=== PATIENT | male | born 1950 | race Caucasian/White ===

== ENCOUNTER 2025-07-16 05:05 | Observation (INO) | payer MEDICARE, OTHER, SELFPAY ==
[2025-07-15 19:51] VITALS: BP 122/87
[2025-07-15 20:08] LABS: Hematocrit 52.5 % (39.0-52.0); Hemoglobin 17.8 g/dL (13.0-18.0); Mean Corp Hgb Conc. 33.9 g/dL (33.0-37.0); Mean Corpuscular Volume 90.1 fL (80.0-94.0); Nucleated Red Blood Cells % 0 % (-); Platelet Count 221 10^3/uL (130-400); Red Cell Dist. Width 13.9 % (11.5-14.5)
[2025-07-15 20:20] LABS: ALT (SGPT) 27 U/L (0-50); AST (SGOT) 22 U/L (17-59); Albumin 3.8 g/dl (3.5-5.0); Alkaline Phosphatase 60 U/L (38-126); Blood Urea Nitrogen 49 mg/dl (9-20); Calcium 9.3 mg/dl (8.4-10.2); Carbon Dioxide 26 mmol/L (22-30); Chloride 99 mmol/L (98-107); Glucose 113 mg/dl (70-99); Potassium 4.0 mmol/L (3.5-5.1); Sodium 134 mmol/L (135-145); Total Protein 6.7 g/dl (6.3-8.2); eGFR > 60.00
[2025-07-15 22:06] VITALS: BP 135/94
[2025-07-15 23:00] VITALS: BP 159/99
--- NOTE | 2025-07-15 23:44 | ED.GENMED ---
History of Present Illness
General
Chief Complaint: Weakness
Source: patient
Time Seen by Provider: 07/15/25 23:18
History of Present Illness
History of Present Illness:
74-year-old male presents emergency department with complaints of not feeling well about 3 weeks ago described as hip pain. He saw his doctor, was diagnosed with a bursitis, was prescribed prednisone which helped him and his pain went away. Then,
sometime over the weekend, he lost his appetite associated with nausea and repeated episodes of nonbloody vomiting. He also noted discomfort across his mid to lower abdomen that is been 'on and off', without associated provoking or relieving
factors. He had some vomiting today but then the pain went away. He had a small piece of toast but then lost his appetite again. Patient notes that in the middle the night last night he tried to get out of bed to fill his water bottle and fell.
He denies associated chest pain or dyspnea. He did feel lightheaded and just 'shaky'. He was able to get himself up and back to bed but states that every time he gets up to stand he feels shaky and lightheaded. He denies chest pain, palpitations,
dyspnea, back pain, neck pain, headache, black stool, or bright red blood per rectum, hematemesis, coffee-ground emesis, etc.
Past History
Past History
ED Past Medical History: Asthma, HTN, Hypercholesterolemia and Other (Kidney stones)
ED Past Surgical History: Cholecystectomy and Orthopedic (4 hip replacements, right hand with pins)
Patient has exhibited threatening behavior?: No
PSI?: No
Social History
Tobacco: Former smoker
Alcohol: None
Personal:
Living: with family
Employment: Employed
Family History
Family History: Hypertension
Phy Exam
Physical Exam
Physical Exam:
GENERAL: Alert , in no apparent distress
EYE: pupils equal and reactive
NECK: Supple, no significant adenopathy.
ENT: o/p clr, mm dry
CARDIAC: Regular rate and rhythm .
LUNGS: Clear breath sounds bilaterally, no acute respiratory distress, no wheezes/rales/rhonchi
ABDOMEN: Soft, mild tenderness noted at suspected umbilical hernia which is reducible, no r/g, no cvat
NEUROLOGICAL: Alert and oriented, no focal neuro deficits
SKIN: Warm and dry, skin intact.
MUSCULOSKELETAL: No edema, well perfused.
PSYCH: Normal and appropriate interaction.
Course
Orders/Labs/Results
Orders:
Orders
07/15/25 19:58
Complete Blood Count/With Diff Urgent
Comprehensive Metabolic Panel Urgent
07/15/25 23:40
Cardiac Monitoring- Treatment ONCE
Troponin I Urgent
0.9% Sodium Chloride 1000 ml [Nss] 1,000 ml IV BOLUS
Iohexol [Omnipaque] See Protocol PO NOW STA
Morphine Sulfate 2 mg IV NOW STA
Ondansetron Injectable [Zofran] 4 mg IV NOW STA
07/15/25 23:43
EKG- Treatment ONCE
07/16/25
CT Abd/pel W Iv And Oral Contr Urgent
Reason For Exam: n/v ventral hernia
07/16/25 01:39
Electrocardiogram (*1) Urgent
Reason for Study: Other
Other Reason for Exam: n/v
07/16/25 04:38
Troponin I Urgent
07/16/25 04:48
Admit/Transfer Patient As Directed
Co-Sign Provider:
Level of Care: Observation services
Assign to:: Telemetry
Physician / Group: oHlly
Diagnosis: mycardial injury
Reason for Telemetry: Chest Pain syndromes
Date to Stop Telemetry: 07/18/25
Time to Stop Telemetry: 11:00
PRN Pain Medication Management As Directed
May give lesser potent ordered pain med per pt: Yes
preference::
Protocol:: Medication orders for pain may be administered in a
manner that supports deferring to patient preference
when the pt is:
- Requesting an ordered lesser potent pain medication.
Least to most potent pain medications are defined
as: acetaminophen < NSAID < tramadol < opioids
(morphine, oxycodone, hydromorphone).
- Requesting a lesser dose of the same medication IF
ORDERED.
- Requesting a less intrusive route of administration
if both routes are prescribed by the provider (PO <
IV).
07/16/25 04:50
Code Status As Directed
Resuscitation Status: Full Code
07/16/25 05:41
Acetaminophen [Tylenol] 650 mg PO Q4HPRN PRN
Albuterol [ProAIR HFA INHALER] 2 puff INH R Q4HPRN PRN asthma
Mag Hydrox/Al Hydrox/Simeth [Maalox] 30 ml PO Q4HPRN PRN
Ondansetron Injectable [Zofran] 4 mg IV Q6HPRN PRN
Tramadol HCl [Ultram] 50 mg PO Q6HPRN PRN
07/16/25 05:41
Echo 2D MMode Color/Doppler Routine
Reason for Study: chest pain
CARDIOLOGY CONSULT Routine
Consulting Provider: Nimo Stewart
Was physician already notified: No
Reason for consult: elevated trop to 0.23, no CP, came in for abd discomfort with neg w/u
Consult Notification Routine
Specialty to Notify: Cardiology
Activity As Directed
Activity Level: With Assistance
INT (Intravenous Needle Therapy) As Directed
Comment: maintain peripheral IV access
Intake/ Output As Directed
Frequency: Per unit guidelines
Pneumatic Compression Sleeves As Directed
Type: Knee high
Vital Signs As Directed
Frequency: q4h
Weight As Directed
Frequency: Once
Pulse Ox/spot Check [RESP] Routine
Quantity: 1
Special Instructions: on admission and then every shift if on oxygen
DX Deep Vein Thrombosis Video Routine
07/16/25 Breakfast
Cholesterol Lowering
At Your Request: Full Participation
Cholesterol Lowering: Sodium, 2 Gram
07/16/25 06:23
CRP [C-Reactive Protein] IN AM
Cardiovascular Evaluation IN AM
Complete Blood Count/No Diff IN AM
ESR [Erythrocyte Sed Rate] IN AM
Glycohemoglobin (HgbA1c) IN AM
NT-proBNP IN AM
07/16/25 08:00
Budesonide/Formoterol 160/4.5 [Symbicort 160/4.5 Mcg Inhaler] 2 puff INH R BID
Furosemide [Lasix] 20 mg PO DAILY
Metoprolol Xl [Toprol Xl] 12.5 mg PO DAILY
Pantoprazole [Protonix] 40 mg PO DAILY
Tolterodine Extended Release [Detrol LA] 4 mg PO DAILY
07/16/25 11:00
Troponin I Q6H
Comment: at admit & Q3H for 3 total including ED draws, obtain ECG with each level
07/16/25 17:00
Troponin I Q6H
Comment: at admit & Q3H for 3 total including ED draws, obtain ECG with each level
07/16/25 18:00
Atorvastatin [Lipitor] 20 mg PO QPM
07/16/25 22:00
Tamsulosin [Flomax] 0.8 mg PO HS
07/18/25 11:00
DC Protocol for Telemetry ONCE
Abnormal Lab Results
07/15/25 07/16/25 07/16/25
19:58 00:22 04:38
WBC 11.9 H 10^3/uL
(4.8-10.8)
Hct 52.5 H %
(39.0-52.0)
MPV 10.7 H fL
(7.4-10.4)
Abs Immat Gran (auto) 0.1 H 10^3/uL
(0-0.05)
Absolute Neuts (auto) 9.5 H 10^3/uL
(1.4-6.5)
Absolute Monos (auto) 0.9 H 10^3/uL
(0.1-0.6)
Immature Gran % 0.8 H %
(0-0.5)
Neutrophils % 79.2 H %
(42.2-75.2)
Lymphocytes % 12.0 L %
(20.5-51.1)
Sodium 134 L mmol/L
(135-145)
BUN 49 H mg/dl
(9-20)
Glucose 113 H mg/dl
(70-99)
Total Bilirubin 2.4 H mg/dl
(0.2-1.3)
Troponin I 0.233 H* ng/ml 0.236 H* ng/ml
07/15/25 19:58
07/15/25 19:58
Vital Signs
Initial and Last Documented VS:
Initial Vital Signs
Pulse Resp BP Pulse Ox
98 18 122/87 96
07/15/25 19:51 07/15/25 19:51 07/15/25 19:51 07/15/25 19:51
Last Documented Vital Signs
Pulse Resp BP Pulse Ox
60 15 107/65 96
07/16/25 06:15 07/16/25 06:15 07/16/25 06:00 07/16/25 06:15
*Pulse Oximetry
SaO2: 96
Oxygen Mode of Delivery: Room air
Update Note
Update Note:
Patient presents to the Emergency Department with __abdominal pain nausea vomiting
Number and Complexity of Problems Addressed at the Encounter
� Chronic conditions affecting care:
� Acute Exacerbation and/or Progression of Chronic Illness:
� Differential Diagnosis includes: But not limited to GI bleed, gastroenteritis, incarcerated hernia, appendicitis, diverticulitis, etc. etc. etc.
Amount and/or Complexity of Data to be Reviewed and Analyzed
� I performed an independent evaluation of and my interpretation is:
EKG: Read by me, normal sinus rhythm, PVCs, right bundle branch block, no acute ischemia, unchanged from prior comparison
CT: Patient report no acute intra-abdominal pathology no bowel obstruction or focal inflammation appendix normal no free air or free fluid no hydronephrosis. Nonobstructing right nephrolithiasis. Prior cholecystectomy. Small
fat-containing periumbilical hernia. Reidentified left total hip arthroplasty with a chronic ovoid 6.4 x 5.8 cm soft tissue density in the region of the left obturator risk control analyst, which may represent a seroma or pseudotumor
Xrays:
Laboratory Studies: Slight leukocytosis, prerenal azotemia
Other:
� Review of other/old records reveals: Patient has been admitted in the past and discharge summaries were reviewed regarding kidney stone surgery, new onset dysphagia diagnosed as laryngitis
� Clinical information was obtained by an independent historian:
� Prescriptions/Medications Considered but not given:
� Further testing considered but not performed:
Risk of Complications and/or Morbidity or Mortality of Patient Management
� Social determinants of health affecting care:
� Discussion with other providers (PCP, Hospitalists, Consultants, etc):
� Escalation of care including admission/observation vs risk of discharge considered: Although patient recently on steroids, labs do not suggest adrenal insufficiency as a cause of his symptoms. Prerenal azotemia. Slight
leukocytosis may be consistent with recent steroid use. Consistent with suspected dehydration.
Patient's troponin noted to be elevated. He does not have active chest discomfort, and ECG without acute changes. Elevation may be related to demand ischemia, will repeat ECG to confirm no changes.
343 am pt resting comfortably, has to urinate (tech will assist/accompany him), no abd pain, no cp. Case d/w hospitalst Dr Tolentino for admission. ECG X 2 unremarkable for acute ischemia and no cp or abd pain...will admit for continued hyudration, cards
eval/tele monitoring, etc.
ED Attending Note
-
Portions of this chart may have been created with voice recognition software.� Occasional wrong word or��sound alike� substitutions may have occurred due to the inherent limitations of voice recognition software.
Discharge Plan
Departure
Patient Disposition: Admit
Date of Disposition: 07/16/25
Time of Disposition: 03:45
Admit to: Telemetry
Presentation/result/management discussed w/ accepting MD/DO: Hospitalist
Discharge Problem:
Dehydration
Interventions
Interventions:
*Risk Screen - Suicide Last Done: 07/15/25 19:51
*General Assessment Last Done: 07/15/25 22:09
*Neglect/Abuse Screening Last Done: 07/15/25 22:09
*ED- Fall Risk Assessment Last Done: 07/15/25 22:09
*ED COVID-19 Vaccine History Last Done: 07/15/25 22:09
ED- Cardiac Assessment Last Done: 07/15/25 22:09
ED- Neurological Assessment Last Done: 07/15/25 22:09
ED- Pulmonary Assessment Last Done: 07/15/25 22:09
[2025-07-16] VITALS (12 sets, daily range): BP systolic 107–185; BP diastolic 65–100; BMI 27.5
[2025-07-16] MEDS: NSS 1000 IV (00:27)
[2025-07-16] MEDS: ZOFRAN 4 MG IV (00:30)
[2025-07-16] MEDS: OMNIPAQUE 50 ML PO (00:34)
[2025-07-16] MEDS: MORPHINE SULFATE 2 MG IV (00:34)
[2025-07-16 01:30] LABS: Troponin I 0.233 ng/ml
--- NOTE | 2025-07-16 04:18 | HPS.HSE ---
Family Physician
-
Family Physician: Jerrell Griffiths
Chief Complaint
-
Weakness
History of Present Illness
This is a 71-year-old male with past medical history significant for hyperlipidemia, asthma, nephrolithiasis who presents to the emergency department with abdominal discomfort.
Patient stated that he saw his orthopedic surgeon about 2 weeks ago for pain in the left hip that is been bothering him for some time. He said the x-rays were done and he was told that the x-rays look very benign and that he probably had bursitis.
Patient was started on a prednisone taper. He said his pain dramatically improved within a few days of the prednisone taper and was able to ambulate again. However as time went on he started developing burning abdominal discomfort with some mild
nausea and mild reflux symptoms. He denied having any shortness of breath. He denied having any exertional chest pain or exertional dyspnea although patient believes with a walker and is not very mobile. Patient denies having any palpitations.
He denies any episodes of dizziness or lightheadedness. He denies any recent episodes of ankle swelling. He reports a prior episode of varicose veins and venous insufficiency that was treated surgically. Patient denies orthopnea or PND. He
denies any recent cough cold or flulike symptoms. He denies any pleuritic chest pain. He denies any trauma. He is chronically on naproxen. He denies having any melena or hematochezia.
In the emergency department patient is hypertensive to 185/88, afebrile, normal oxygen saturation of 97% on room air with a pulse of 68. ECG shows a normal sinus rhythm rate of 61 with right bundle. His troponin is elevated at 0.23.
CBC is unremarkable, electrolytes BUN and creatinine were essentially normal range. Total bilirubin slightly elevated 2.4.
CT of the abdomen pelvis shows no acute intra-abdominal pathology
Medical History
Past Medical History
Past Medical History: Reports Asthma and Other (Nephrolithiasis, BPH)
Past Surgical History: Reports Cholecystectomy, Orthopedic (Hip replacement x4), Tonsilectomy and Urological (Right ureteroscopy/laser lithotripsy and stenting)
Social History
Tobacco: Former Smoker
Alcohol: Occasional
Drug: None
Personal: Single
Employment: Retired
Family History
Family History: Not pertinent
Allergies / Home Medications
Allergies reflects when Allergies were last updated in [employer].
Home Medications with original date entered in [employer]
Allergy/Medication List:
Allergies
Allergy/AdvReac Type Severity Reaction Status Date / Time
No Known Allergies Allergy Verified 07/15/25 19:51
Home Medications
traMADol HCl 50 MG 1 tablet as needed Orally TID for 7 days Nov, Active
Aspirin 325 MG Take one tablet by mouth daily Oral Apr, Not-Taking/PRN
Zocor 40 MG Take one tablet by mouth daily Oral Apr, Active
Breo Ellipta 200-25 MCG/ACT 1 puff Inhalation Once a day Active
Bystolic 10 MG take one daily Oral Not-Taking/PRN
Furosemide 20 MG 1 tablet Orally Once a day Active
Tamsulosin HCl 0.4 MG 2 capsule Orally Once a day Active
ProAir HFA 108 (90 Base) MCG/ACT Inhale two times via nostril three times per day Inhalation Active
Solifenacin Succinate 10 MG 1 tablet Orally Once a day Active
Naproxen 500 MG 1 tablet twice a day Oral Active
Medical Cannabis 1 Unit Active
Metoprolol Succinate ER 25 MG 1/2 tablet Orally Once a day Active
Review of Systems
-
History Source: Patient
Constitutional: Reports No Symptoms
EENT: Reports No Symptoms
Respiratory: Reports No Symptoms
Cardiac: Reports No Symptoms
Abdomen/GI: Reports Abdominal Pain and Nausea
: Reports No Symptoms
Musculoskeletal: Reports No Symptoms
Skin: Reports No Symptoms
Neurological: Reports No Symptoms
Endocrine: Reports No Symptoms
Hematologic/Lymphatic: Reports No Symptoms
Psych: Reports No Symptoms
Physical Exam
Vital Signs
Vital Signs
Pulse Resp BP Pulse Ox
68 20 185/88 97
07/16/25 02:46 07/16/25 02:46 07/16/25 02:46 07/16/25 02:46
Physical Exam
General: Well Developed, Well Nourished and Obese
HEENT: NormoCephalic, Moist mucous membranes and Atraumatic
Respiratory: Clear
Cardiac: S1/S2 and Regular Rhythm; No Murmur or Rub
GI: Soft, Non Tender, Non Distended and Normal Bowel Sounds; No Organomegaly
Rectal: Deferred by Provider
Genito-urinary: Deferred by me
Musculoskeletal: No Clubbing, No Cyanosis and No Edema
Skin: No Rash
Neuro: AO x 3 and Nonfocal/grossly intact
Hematologic/Lymphatic: No Lymphadenopathy
Psych: Calm
Laboratory Results
-
07/15/25 19:58
07/15/25 19:58
Laboratory Results
Total Bilirubin 2.4 mg/dl (0.2-1.3) H 07/15/25 19:58
AST 22 U/L (17-59) 07/15/25 19:58
ALT 27 U/L (0-50) 07/15/25 19:58
Alkaline Phosphatase 60 U/L (38-126) 07/15/25 19:58
Troponin I 0.233 ng/ml H* 07/16/25 00:22
Data Reviewed
-
CT Scan: Report Reviewed by me
Medical Tests (Nuc Med, Echo, EKG etc): Image Personally Visualized and interpreted
Lab Data: Labs Reviewed by me
Old Records: Reviewed
Impression/Plan
-
IMPRESSION:
71-year-old with past medical history significant for hypertension, asthma, hyperlipidemia, chronic osteoarthritis status post multiple hip surgeries, BPH who presents to the emergency department with complaints of several days of abdominal
discomfort including a burning abdominal pain and nausea was found to have elevated troponin in the emergency department and no specific finding to explain his abdominal symptoms. Patient CT scan was unremarkable. He has no shortness of breath and
he has no chest pain. He denies any pleuritic symptoms. He denies any recent infectious illness. He has no signs of congestive heart failure on examination. Despite elevated troponin patient's ECG is nonischemic with sinus rhythm and right
bundle. He has no history of arrhythmias and he has been denied any symptoms to suggest an arrhythmia. Suspect that he does have gastritis giving her use of NSAIDs chronically in addition to prednisone however this cannot explain his elevated
troponin.
PLAN:
Elevated troponin -uncertain etiology and no other corroborative history, no prior history of CAD
-Admit to telemetry
-Cycle cardiac enzymes
-Check CPK and noncardiac enzymes
- Check ESR/CRP for possible pericarditis or myocarditis
-Check echocardiogram
-Lipid panel and A1c
-Acetaminophen for chest pain for now (already on NSAIDs twice daily standing)
�Cardiology consult
Abdominal pain
-antacids
-PPI daily
-Antiemetics as needed
BPH
Continue tamsulosin
Hypertension
Continue metoprolol, furosemide
DVT prophylaxis�SCDs
CODE STATUS�full code
[2025-07-16 05:27] LABS: Troponin I 0.236 ng/ml
[2025-07-16 07:02] LABS: COVID-19 Antigen Negative (Negative)
[2025-07-16 07:13] LABS: HDL Cholesterol 36 mg/dl; Hematocrit 43.7 % (39.0-52.0); Hemoglobin 15.2 g/dL (13.0-18.0); LDL Cholesterol, Calculated 77 mg/dl; Mean Corp Hgb Conc. 34.8 g/dL (33.0-37.0); Mean Corpuscular Volume 89.4 fL (80.0-94.0); Platelet Count 167 10^3/uL (130-400); Red Cell Dist. Width 13.5 % (11.5-14.5); Very Low Density Lipoprotein 23 mg/dl (0-30)
[2025-07-16 07:17] LABS: C-Reactive Protein < 5.00 mg/L (0.0-10.00)
--- NOTE | 2025-07-16 08:43 | CON.CAR ---
Addendum entered and electronically signed by Nimo Stewart DO 07/16/25 15:01:
I saw and examined the patient.
The [place] Aide's note was reviewed and I agree with the note.
Comment: I had the pleasure to see Mike in ED bed 14. Patient is a 74 year-old male with past medical history significant for hypertension, hyperlipidemia, chronic right bundle branch block, asthma, BPH, nephrolithiasis, venous insufficiency and
chronic NSAID use who presented to emergency department 07/16/2025 with abdominal discomfort, nausea and vomiting for several days. However he has been having abdominal pain and nausea for over a month. He has not seen GI but has seen his family
physician patient was recently on prednisone taper for hip pain. Around this time he started developing abdominal discomfort associated with nausea and reflux symptoms then developed vomiting daily for several days. He states he has barely had
anything to eat or drink since . He denied having chest pain or shortness of breath. Due to worsening GI symptoms he presented to emergency department 07/16/2025. His blood pressure was initially normotensive but then became hypertensive
at 185/88 which was felt to be related to increased anxiety but has since normalized. EKG showed sinus rhythm with right bundle branch block. Noted to have elevated troponin initial 0.233 with repeat 0.236. proBNP unremarkable at 762, creatinine
1.2, total bilirubin was mildly elevated at 2.4. CT of abdomen and pelvis performed with results pending. Cardiology being asked to see patient for abnormal troponin. Patient has never seen cardiology he has no prior history of arrhythmias, heart
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
General: Lying supine in mild distress secondary to intractable hiccups and nausea.
Neck: Negative JVD
Heart: Regular. Positive S1-S2. No murmurs or rubs
Lungs: CTA b/l, negative wheezes/rales/rhonchi
Abd: Distended. Positive bowel sounds. Mild tenderness without rebound
Ext: No edema
Neuro: nonfocal
Plan:
Echo 07/16/2025: EF 63% by Malhotra's method. Stage I DD. Mildly increased LV wall thickness. No significant valvular disease.
Plan:
- Presented 07/16/2025 with abdominal pain, nausea and vomiting for a few days which started after patient was on prednisone taper for hip pain but reports nausea for at least over a month.
- Discussed with hospitalist, consider GI evaluation
- PPI. Avoid NSAIDs. Hemoglobin stable.
Elevated troponin, initial 0.233, repeat 0.236.
- Trend to peak
-Patient denies chest pain or pressure
- EKG with sinus rhythm with right bundle branch block and no evidence of acute ischemia. Known chronic right bundle branch block
- Echocardiogram this admission demonstrated preserved ejection fraction with no significant valvular disease and mild LV thickness.
- Patient does have risk factors for coronary artery disease including hypertension, hyperlipidemia and prior tobacco abuse. Given echo shows preserved ejection fraction and no significant valvular disease would consider ischemic evaluation once
patient has recovered from GI illness. Will arrange for outpatient Lexiscan PET/CT stress test and cardiology follow-up
- Lipids 07/16/2025 TC 136, HDL 36, LDL 77, triglycerides 115.
- proBNP 762. BUN 49, creatinine 1.2; will stop Lasix at this time and monitor
-Blood pressures have been labile likely driven by nausea and vomiting as well as anxiety. Continue metoprolol succinate 12.5 mg daily and will continue to monitor.
Original Note:
Consultation
Consultation Request
Date/Time Consultation Requested: 07/16/2025
Date/Time Consultation Performed: 07/16/2025
Requesting Provider: Dr. Barrera
Performing Provider: Vijaya Kidd PA-C for Dr. Stewart
Reason for Consultation: Abdominal pain, abnormal troponin
Medical History
-
History of Present Illness:
Patient is a 71-year-old male with past medical history significant for hypertension, hyperlipidemia, chronic right bundle branch block, asthma, BPH, nephrolithiasis, venous insufficiency and chronic NSAID use who presented to emergency department
07/16/2025 with abdominal discomfort, nausea and vomiting for several days. Patient was recently on prednisone taper for hip pain. Around this time he started developing abdominal discomfort associated with nausea and reflux symptoms then developed
vomiting daily for several days. He denied having chest pain or shortness of breath. Due to worsening GI symptoms he presented to emergency department 07/16/2025. His blood pressure was initially normotensive but then became hypertensive at 185/88
which was felt to be related to increased anxiety but has since normalized. EKG showed sinus rhythm with right bundle branch block. Noted to have elevated troponin initial 0.233 with repeat 0.236. proBNP unremarkable at 762, creatinine 1.2, total
bilirubin was mildly elevated at 2.4. CT of abdomen and pelvis performed with results pending. Cardiology being asked to see patient for abnormal troponin. Patient has never seen cardiology he has no prior history of arrhythmias, heart failure,
coronary artery disease.
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 He reports since that time physically he has declined
Past medical history:
Hypertension
Hyperlipidemia
Chronic right bundle branch block
Asthma
Nephrolithiasis
BPH
Venous insufficiency with varicose veins with prior surgical intervention
Past Medical History
Past Medical History: Other (See HPI)
Past Surgical History: Cholecystectomy, Orthopedic (Hip replacement/surgeries x 4), Tonsilectomy, Urological (Right ureteroscopy/laser litho and stent 11/2023) and Other (Varicose vein surgery)
Social History
Tobacco: Former Smoker
Alcohol: Occasional
Drug: None
Personal: Single
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
Family History
Family History: CAD (Mother)
Allergies / Home Medications
Allergy/AdvReac Type Severity Reaction Status Date / Time
No Known Allergies Allergy Verified 07/15/25 19:51
�Medication �Instructions �Recorded �Confirmed �Type
albuterol sulfate 90 mcg/actuation 2 puff inhalation R Q4HPRN PRN 06/16/12 07/16/25 History
aerosol inhaler asthma
naproxen 500 mg tablet 500 mg PO BID 06/16/12 07/16/25 History
simvastatin 40 mg tablet 40 mg PO QPM 06/16/12 07/16/25 History
tamsulosin 0.4 mg capsule (Flomax) 0.4 mg PO DAILY 06/16/12 07/16/25 History
fluticasone furoate 200 1 inh inhalation R DAILY 06/19/23 07/16/25 History
mcg-vilanterol 25 mcg/dose
inhalation powder (Breo Ellipta)
metoprolol succinate 25 mg 12.5 mg PO DAILY 06/19/23 07/16/25 History
tablet,extended release 24 hr
(Toprol XL)
solifenacin 10 mg tablet (Vesicare) 10 mg PO DAILY 06/19/23 07/16/25 History
Medical [place] 1 puff inhalation DAILYPRN PRN 12/19/23 07/16/25 History
mild pain, sleep
tramadol 50 mg tablet 50 mg PO DAILYPRN PRN moderate 07/16/25 07/16/25 History
pains
Review of Systems
-
History Source: Patient
All other systems: Negative unless noted
Physical Exam
Vital Signs
Temp Pulse Resp BP Pulse Ox
97.6 F 60 15 107/65 96
07/16/25 07:00 07/16/25 06:15 07/16/25 06:15 07/16/25 06:00 07/16/25 06:15
GEN: No distress, awake, Ox3, lying in bed with occasional belching
HEENT: supple, anicteric, mmm
LUNGS: CTA, no wheezes/rales
CV: Reg, S1/S2, no murmur, rub or gallop
ABD: soft, BS+, NT/ND
EXT: No edema, clubbing or cyanosis
NEURO: Gross non-focal
SKIN: No rash, warm, dry, pink
Lab Results
07/16/25 06:23
07/15/25 19:58
Troponin I 0.236 ng/ml H* 07/16/25 04:38
Wye-Y-Wwrnphpbioz Pept 762 pg/ml 07/16/25 06:23
Impression / Plan
-
PCP: Jerrell Griffiths
Etl Data Architect: None prior to admission, initially seen by Dr. Nimo Stewart
Impression:
Presented 07/16/2025 with abdominal pain, nausea and vomiting x 3 to 4 days
Possible gastritis
Abnormal bilirubin
Abnormal troponin
Hypertension
Hyperlipidemia
Chronic right bundle branch block
Chronic NSAID with Naproxen use due to orthopedic/hip pain
Asthma
Nephrolithiasis
BPH
Venous insufficiency with varicose veins with prior surgical intervention
Prior tobacco abuse
Echo 07/16/2025: EF 63% by Malhotra's method. Stage I DD. Mildly increased LV wall thickness. No significant valvular disease.
Plan:
- Presented 07/16/2025 with abdominal pain, nausea and vomiting for a few days which started after patient was on prednisone taper for hip pain.
- Abdominal pain, nausea and vomiting ongoing for several days. Unclear etiology. Mildly elevated total bilirubin at 2.4. Abdominal ultrasound pending. Symptoms have improved with Zofran and morphine. Treatment per primary service. Possible
gastritis.
- Patient does admit to chronic NSAID use with naproxen twice a day for at least 10 years. He denies melena or bright red blood per rectum. Hemoglobin stable at 15.2
- Elevated troponin, initial 0.233, repeat 0.236. Trend to peak. Patient denies chest pain or shortness of breath but does have
- EKG with sinus rhythm with right bundle branch block and no evidence of acute ischemia. Known chronic right bundle branch block
- Echocardiogram this admission demonstrated preserved ejection fraction with no significant valvular disease and mild LV thickness.
- Patient does have risk factors for coronary artery disease including hypertension, hyperlipidemia and prior tobacco abuse. Given echo shows preserved ejection fraction and no significant valvular disease would consider ischemic evaluation once
patient has recovered from GI illness.
- CRP less than 5. Sed rate pending
- CT of abdomen and pelvis pending. Possibly gastritis due to history of chronic NSAID use and recent steroid taper
- Lipids 07/16/2025 TC 136, HDL 36, LDL 77, triglycerides 115.
- proBNP 762. BUN 49, creatinine 1.2 unclear why patient on Lasix this admission. Will discontinue
- Blood pressure somewhat labile. Per nursing blood pressure was hypertensive while patient was very anxious. However does seem to have improved as patient is more relaxed. Continue outpatient dose of Toprol 12.5 mg daily.
HPI 07/16/2025:
Patient is a 71-year-old male with past medical history significant for hypertension, hyperlipidemia, chronic right bundle branch block, asthma, BPH, nephrolithiasis, venous insufficiency and chronic NSAID use who presented to emergency department
07/16/2025 with abdominal discomfort, nausea and vomiting for several days. Patient was recently on prednisone taper for hip pain. Around this time he started developing abdominal discomfort associated with nausea and reflux symptoms then developed
vomiting daily for several days. He denied having chest pain or shortness of breath. Due to worsening GI symptoms he presented to emergency department 07/16/2025. His blood pressure was initially normotensive but then became hypertensive at 185/88
which was felt to be related to increased anxiety but has since normalized. EKG showed sinus rhythm with right bundle branch block. Noted to have elevated troponin initial 0.233 with repeat 0.236. proBNP unremarkable at 762, creatinine 1.2, total
bilirubin was mildly elevated at 2.4. CT of abdomen and pelvis performed with results pending. Cardiology being asked to see patient for abnormal troponin. Patient has never seen cardiology he has no prior history of arrhythmias, heart failure,
coronary artery disease.
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 He reports since that time physically he has declined
Data Reviewed
-
EKG: Report Reviewed by me, Discussed with Physician, Discussed with Nurse and Discussed with Patient
Medical Tests (Nuc Med, Echo etc): Report Reviewed by me, Discussed with Physician, Discussed with Nurse and Discussed with Patient
Labs: Labs Reviewed by me, Discussed with Physician, Discussed with Nurse and Discussed with Patient
Old Records: Reviewed
[2025-07-16 09:00] LABS: Glycohemoglobin (HgbA1c) 5.4 % (4.0-5.6)
[2025-07-16] MEDS: TOPROL XL 12.5 MG PO (09:42)
[2025-07-16] MEDS: PROTONIX 40 MG PO (09:42)
[2025-07-16] MEDS: LASIX 20 MG PO (09:43)
[2025-07-16] MEDS: DETROL LA 4 MG PO (09:43)
[2025-07-16 13:23] LABS: Troponin I 0.184 ng/ml
[2025-07-16] MEDS: SYMBICORT 160/4.5 MCG INHALER INH (14:12)
--- NOTE | 2025-07-16 17:38 | FALL ---
Description of Fall:
Pt rang the call fernandez to walk to the bathroom, assisted to the bathroom with PCT and single point cane. Pt was standing at the toilet to urinate, pct left the door cracked and stood outside of the door, heard a thud. Pt reports he lost his balance
after getting lightheaded which caused him to fall backwards onto his buttocks. Denies head or neck strike. Able to ambulate without difficulty post fall.
Injuries Noted:
None
Action Taken:
Pt assisted up and back to bed. Call fernandez and urinal within reach. Fall precautions maintained, provider notified.
Name of Provider Notified: Dr. Liu Reynoso no new orders other than to observe at this time
[2025-07-16 17:52] LABS: Troponin I 0.163 ng/ml
--- NOTE | 2025-07-16 19:35 | PTCARENOTE ---
Patient arrived from the ED via stretcher. Patient AAOx3, able to ambulate into the room with assistance and cane from home. C/o some light headedness when standing up. VSS. No c/o chest pain. Fall risk band intact, non slip socks applied. Oriented
to the room, call fernandez is within reach.
[2025-07-16] MEDS: SYMBICORT 160/4.5 MCG INHALER 2 PUFF INH (20:19)
[2025-07-16] MEDS: FLOMAX 0.8 MG PO (20:35)
[2025-07-16] MEDS: LIPITOR 20 MG PO (20:35)
[2025-07-16] MEDS: ULTRAM 50 MG PO (20:35)
--- NOTE | 2025-07-17 02:54 | DOWNTIME ---
There was a [employer] Specialist Downtime on 07/17/2025 from 0100 to 07/17/2025 at 0235. Downtime documentation of patient's care, including medication administrations, has been reconciled in the electronic record per guidelines. Refer to the
patient's paper chart under the miscellaneous tab to see printed paper medication records and downtime forms.
--- NOTE | 2025-07-17 03:09 | PTCARENOTE ---
Prior to admission to , patient says he sustained a fall onto his buttocks. See prior Fall Note. Documentation for fall risk on physical assessment updated.
[2025-07-17 03:17] VITALS: BP 153/83
[2025-07-17] MEDS: ULTRAM 50 MG PO ×4 (03:32→22:02)
[2025-07-17] MEDS: ZOFRAN 4 MG IV ×2 (03:32→12:34)
[2025-07-17 07:00] VITALS: BP 141/79
[2025-07-17] MEDS: SYMBICORT 160/4.5 MCG INHALER 2 PUFF INH ×2 (07:53→19:28)
[2025-07-17] MEDS: TOPROL XL 12.5 MG PO (09:00)
[2025-07-17] MEDS: DETROL LA 4 MG PO (09:00)
[2025-07-17] MEDS: PROTONIX 40 MG PO (09:01)
[2025-07-17 11:00] VITALS: BP 143/77
--- NOTE | 2025-07-17 11:55 | W.PN.CARDCBS ---
Addendum entered and electronically signed by Angel Mannign DO 07/17/25 14:08:
I saw and examined the patient.
The Dermatology Sales Representative's note was reviewed and I agree with the note.
Comment:
Plan:
Troponin coming down
Echo with preserved EF and no significant valvular disease. No wall motion abnormalities. EKG without ischemic changes.
Patient to be arranged for outpatient stress testing.
Heart rate blood pressure stable, continue metoprolol and atorvastatin.
Continue workup for GI symptoms.
Outpatient follow-up with Dr. Stewart to be arranged.
Original Note:
Today's Communication / Plan
-
Will arrange for outpatient stress test pending plans from hospitalist for ongoing nausea and possible gastritis
No chest pain, echo without WMA, no ischemic changes on ECG
Impression / Plan
-
PCP: Jerrell Griffiths
Hamper Maker: None prior to admission, initially seen by Dr. Nimo Stewart
Impression:
Presented 07/16/2025 with abdominal pain, nausea and vomiting x 3 to 4 days
Possible gastritis
Abnormal bilirubin
Abnormal troponin
Hypertension
Hyperlipidemia
Chronic right bundle branch block
Chronic NSAID with Naproxen use due to orthopedic/hip pain
Asthma
Nephrolithiasis
BPH
Venous insufficiency with varicose veins with prior surgical intervention
Prior tobacco abuse
Echo 07/16/2025: EF 63% by Malhotra's method. Stage I DD. Mildly increased LV wall thickness. No significant valvular disease.
Plan:
-Presented 07/16/2025 with abdominal pain, nausea and vomiting for a few days which started after patient was on prednisone taper for hip pain.
-CT abd/pelvis was fairly unremarkable and patient reports that he is more nauseous after eating breakfast 07/17/25 and is asking for additional antiemetics. Reviewed with hospitalist attending and awaiting additional plans.
-From a CV perspective, Troponin peaked at 0.236. No ischemic changes on ECG. Echo without WMA and EF preserved. No chest pain.
-Seems unlikely that nausea is a symptom of ACS, but patient should have eventual stress test due to elevated Troponin.
-Patient prefers stress test at [facility] as he lives in [place].
-Lipids 07/16/2025 TC 136, HDL 36, LDL 77, triglycerides 115.
-proBNP 762. BUN 49, creatinine 1.2 unclear why patient on Lasix this admission. Lasix is now on hold.
-Blood pressure somewhat labile. Continue outpatient dose of Toprol 12.5 mg daily.
HPI 07/16/2025: Patient is a 71-year-old male with past medical history significant for hypertension, hyperlipidemia, chronic right bundle branch block, asthma, BPH, nephrolithiasis, venous insufficiency and chronic NSAID use who presented to
emergency department 07/16/2025 with abdominal discomfort, nausea and vomiting for several days. Patient was recently on prednisone taper for hip pain. Around this time he started developing abdominal discomfort associated with nausea and reflux
symptoms then developed vomiting daily for several days. He denied having chest pain or shortness of breath. Due to worsening GI symptoms he presented to emergency department 07/16/2025. His blood pressure was initially normotensive but then
became hypertensive at 185/88 which was felt to be related to increased anxiety but has since normalized. EKG showed sinus rhythm with right bundle branch block. Noted to have elevated troponin initial 0.233 with repeat 0.236. proBNP unremarkable
at 762, creatinine 1.2, total bilirubin was mildly elevated at 2.4. CT of abdomen and pelvis performed with results pending. Cardiology being asked to see patient for abnormal troponin. Patient has never seen cardiology he has no prior history of
arrhythmias, heart failure, coronary artery disease.
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 He reports since that time physically he has declined
Progress Note - Hamper Maker
Subjective
Date of Service: July 17, 2025
He feels nauseous after eating breakfast
Objective
Labs:
07/16/25 06:23
07/15/25 19:58
Labs
Hgb 15.2 g/dL (13.0-18.0) 07/16/25 06:23
Hct 43.7 % (39.0-52.0) 07/16/25 06:23
Plt Count 167 10^3/uL (130-400) D 07/16/25 06:23
Sodium 134 mmol/L (135-145) L 07/15/25 19:58
Potassium 4.0 mmol/L (3.5-5.1) 07/15/25 19:58
BUN 49 mg/dl (9-20) H 07/15/25 19:58
Creatinine 1.2 mg/dL (0.7-1.3) 07/15/25 19:58
Glucose 113 mg/dl (70-99) H 07/15/25 19:58
Troponins
07/16/25 07/16/25 07/16/25
00:22 04:38 12:48
Troponin I 0.233 H* 0.236 H* 0.184 H*
07/16/25
17:16
Troponin I 0.163 H*
Vital Signs and I&O:
Vital Signs
Temp Pulse Resp BP Pulse Ox
98 F 71 16 141/79 94
07/17/25 07:00 07/17/25 09:00 07/17/25 07:57 07/17/25 09:00 07/17/25 07:57
Vital Signs
Temp Pulse Resp BP Pulse Ox
98 F 71 16 141/79 94
07/17/25 07:00 07/17/25 09:00 07/17/25 07:57 07/17/25 09:00 07/17/25 07:57
Intake & Output
07/15/25 07/16/25 07/17/25 07/18/25
06:59 06:59 06:59 06:59
Intake Total 960 / 960
Output Total 500 / 500
Balance 460 / 460
Physical Exam
Physical Exam
GEN: NAD. AAO x3
LUNGS: RA. No audible wheeze
CV: SR on tele. Reg, no murmur
EXT: No edema B/L
NEURO: Gross non-focal
SKIN: No rash
--- NOTE | 2025-07-17 14:47 | W.PN.HOSP.TC ---
Today's Communication/Plan
-
Increase PPI to twice daily
Consult GI
Assessment / Plan
Assessment / Plan
IMPRESSION:
71-year-old with past medical history significant for hypertension, asthma, hyperlipidemia, chronic osteoarthritis status post multiple hip surgeries, BPH who presents to the emergency department with complaints of several days of abdominal
discomfort including a burning abdominal pain and nausea was found to have elevated troponin in the emergency department and no specific finding to explain his abdominal symptoms. Patient CT scan was unremarkable. He has no shortness of breath and
he has no chest pain. He denies any pleuritic symptoms. He denies any recent infectious illness. He has no signs of congestive heart failure on examination. Despite elevated troponin patient's ECG is nonischemic with sinus rhythm and right
bundle. He has no history of arrhythmias and he has been denied any symptoms to suggest an arrhythmia. Suspect that he does have gastritis giving her use of NSAIDs chronically in addition to prednisone however this cannot explain his elevated
troponin.
PLAN:
Elevated troponin -uncertain etiology and no other corroborative history, no prior history of CAD. Clinically suspect non ischemic myocardail injury
No CP
ECHO without WMA and normal EF
Appreciate cards inpt - OP stress test
Abdominal pain
Patient has upper GI symptoms along with abdominal pain. He was recently treated with steroids for left hip pain and is on chronic NSAIDs for many years. Clinical suspicion is for upper GI pathology. Consult GI
-antacids
-PPI daily - increase to BID
-Antiemetics as needed
BPH
Continue tamsulosin
Hypertension
Continue metoprolol, furosemide
DVT prophylaxis�SCDs
CODE STATUS�full code
Anticipated Discharge: 24 - 48 hours
Subjective/Interval History
-
Date of Service: July 17, 2025
Still with abdo discomfort plus has some heart burn
Feeling nauseous and didnt eat much today
No CP or SOB
Objective Data
-
Vital Signs:
Vital Signs
Temp Pulse Resp BP Pulse Ox
97.9 F 72 16 143/77 96
07/17/25 11:00 07/17/25 11:00 07/17/25 11:00 07/17/25 11:00 07/17/25 11:00
I&O
07/16/25 07/17/25 07/18/25
06:59 06:59 06:59
Intake Total 960 / 960
Output Total 500 / 500
Balance 460 / 460
Physical Exam
-
General: Comfortable
Respiratory: Non Labored Respirations; Negative Accessory Resp Muscle Use
Cardiac: Regular Rhythm and S1/S2
GI: Soft, Nontender, Nondistended and Normal Bowel Sounds
Neuro: AO x 3
Psych: Calm
Data Reviewed
-
Labs: Labs Reviewed by me
[2025-07-17 15:00] VITALS: BP 119/76
--- NOTE | 2025-07-17 15:14 | CON.GI ---
Addendum entered and electronically signed by Maureen Morgan Do, MD 07/17/25 17:26:
I saw and evaluated the patient. I reviewed the resident�s note and agree with findings and plan as documented in the resident�s note.
Mike is a 74yo M with chronic arthritis s/p several hip surgeries on nsaids daily basis for many years who presents with acute epigastric abd pain with N/V. He felt dehydrated. Of note recently completed steroid course for hip pain. He does
have reflux and some chronic constipation with enema use 1 wk prior to admission. Denies black or red blood in stools. Vitals stable, obese abdomen NTTP. Labs reviewed
Impression
- Acute epigastric abd pain
ddx includes PUD, hiatal hernia or gastritis
- Chronic nsaid use
- OA
- Chronic constipation
- Elevated troponin
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
Recommendations
- EGD tomorrow
- PPI BID
- Carafate ATC
- Repeat LFTs with direct bili tomorrow
- Miralax daily basis
- Stop all nsaids going forward
Will follow with you
Original Note:
Consultation
-
Requesting Provider: Liu Reynoso MD
Performing Provider: Eladio Howard DO (Resident); Maureen Evans MD
Reason for Consultation: Abdominal Pain
Medical History
Chief Complaint / HPI
Chief Complaint: Abdominal Pain
History of Present Illness:
Mike Jean Baptiste is a 74M with a PMHx of chronic constipation, OA with chronic Naproxen use and bilateral hip replacements, one of which developed bursitis requiring recent 5 day course of prednisone. He presented to the emergency department 2 days
ago with abdominal discomfort, nausea and vomiting for several days. Patient states that 2 weeks ago he was having hip pain and saw his orthopedist who started him on a 5 day course of prednisone. He notes that the prednisone helped his hip pain,
but then about 1 week ago, he started to have epigastric abdominal discomfort with nausea and loss of appetite. He notes the discomfort is very vague and does not really classify it as pain, such as what he was initially getting when he pressed on
his hernia. He states the discomfort is worse with eating, and occasionally he has brought up NBNB vomit and other times reflux. Patient also endorses a history of chronic constipation. His last BM was 6 days ago, and he states that he thinks that
it was dark brown, and darker than usual. Otherwise, the patient denies dysphagia, odynophagia, icterus, jaundice, hematochezia, or change in stool consistency/shape with prior bowel movements.
ED and HOSPITAL COURSE
ED: WBC 11.9, BUN 49, Cr 1.2, Troponin 0.233 (downtrended), normal transminases, elevated T Bili of 2.4.
CT Abd/Pelv:
No acute inflammatory process within the abdomen or pelvis.
No bowel obstruction. Mild colonic fecal burden.
The appendix is not identified with certainty. No secondary signs of appendicitis.
No obstructive uropathy. Tiny right renal calculi without obstructive uropathy.
Hernia in the umbilical region with the defect measuring 1.3 cm and a fat-containing hernia sac measuring 5 cm. Minor soft tissue stranding.
Stable tiny 3 mm pulmonary nodule in the posterior left costophrenic angle, supporting a benign etiology.
Prior cholecystectomy without apparent common bile duct dilatation. Minor intrahepatic duct distention, likely reflecting changes related to patient age and prior cholecystectomy. Recommend correlation with liver function tests.
Hospital Course: ECHO done by cardiologyJose due to elevated BUN.
Past Medical History
Past Medical History: Asthma, HTN, Hypercholesterolemia and Other (BPH, OA)
Past Surgical History: Cholecystectomy, Orthopedic (bilateral hips) and Other (herniorraphy)
Social History
Tobacco: Former Smoker (quit 40 years ago)
Alcohol: Former (occasional, quit 9 years ago)
Drug: None
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
Family History
Family History: Other (denies family history of GI or hepatologic cancers. Denies family history of IBD. )
Allergies / Home Medications
Allergy/AdvReac Type Severity Reaction Status Date / Time
No Known Allergies Allergy Verified 07/15/25 19:51
�Medication �Instructions �Recorded
albuterol sulfate 90 mcg/actuation 2 puff inhalation R Q4HPRN PRN 06/16/12
aerosol inhaler asthma
naproxen 500 mg tablet 500 mg PO BID 06/16/12
simvastatin 40 mg tablet 40 mg PO QPM 06/16/12
tamsulosin 0.4 mg capsule (Flomax) 0.4 mg PO DAILY 06/16/12
fluticasone furoate 200 1 inh inhalation R DAILY 06/19/23
mcg-vilanterol 25 mcg/dose
inhalation powder (Breo Ellipta)
metoprolol succinate 25 mg 12.5 mg PO DAILY 06/19/23
tablet,extended release 24 hr
(Toprol XL)
solifenacin 10 mg tablet (Vesicare) 10 mg PO DAILY 06/19/23
Medical Marijuana 1 puff inhalation DAILYPRN PRN 07/16/25
anxiety
tramadol 50 mg tablet 50 mg PO DAILYPRN PRN moderate 07/16/25
pains
Review of Systems
-
History Source: Patient
All other systems: A 12 pt ROS was Negative except as stated above in HPI
Vital Signs
Temp Pulse Resp BP Pulse Ox
97.9 F 72 16 143/77 98
07/17/25 11:00 07/17/25 11:00 07/17/25 11:00 07/17/25 11:00 07/17/25 14:49
Physical Exam
Exam
General: No Apparent Distress and Comfortable
HEENT: Normocephalic and Anicteric
GI: Soft, Non Tender, Non Distended and Normal Bowel Sounds
Skin: Warm and Other (nonjaundiced)
Neuro: Awake
Psych: Calm
Results
WBC 10.6 10^3/uL (4.8-10.8) 07/16/25 06:23
Hgb 15.2 g/dL (13.0-18.0) 07/16/25 06:23
Hct 43.7 % (39.0-52.0) 07/16/25 06:23
MCV 89.4 fL (80.0-94.0) 07/16/25 06:23
Plt Count 167 10^3/uL (130-400) D 07/16/25 06:23
Absolute Neuts (auto) 9.5 10^3/uL (1.4-6.5) H 07/15/25 19:58
Sodium 134 mmol/L (135-145) L 07/15/25 19:58
Potassium 4.0 mmol/L (3.5-5.1) 07/15/25 19:58
Chloride 99 mmol/L (98-107) 07/15/25 19:58
Carbon Dioxide 26 mmol/L (22-30) 07/15/25 19:58
BUN 49 mg/dl (9-20) H 07/15/25 19:58
Creatinine 1.2 mg/dL (0.7-1.3) 07/15/25 19:58
Calcium 9.3 mg/dl (8.4-10.2) 07/15/25 19:58
Total Bilirubin 2.4 mg/dl (0.2-1.3) H 07/15/25 19:58
AST 22 U/L (17-59) 07/15/25 19:58
ALT 27 U/L (0-50) 07/15/25 19:58
Alkaline Phosphatase 60 U/L (38-126) 07/15/25 19:58
Diagnostic Image Results:
Prior GI Procedures:
EGD:
Colonoscopy:
Assessment / Plan
-
Mr. Jean Baptiste is a 74M with a PMHx of chronic constipation, OA with chronic Naproxen use and recent prednisone use who is presenting with one week of abdominal discomfort, reflux, and vomiting after meals. Although hemogblobins are currently within
normal limits, he has a large reserve and there was a greater than 2 point drop into today. The patient also endorses that although he is chronically constipated, he thought his last BM was darker than usual, coinciding with the onset of symptoms.
BUN to Creatinine ratio was greater than 30. The patient also has a mild hyperbilirubinemia. The patient would benefit from additional GI workup for UGIB. DDx: includes gastritis 2/2 NSAID and/or steroid use or PUD.
- Protonix BID IV
- Carafate AC HS
- Continue Antiemetics
- Continue to monitor CBCs.
- Start Miralax
- Monitoring of stools for blood/color
- Repeat LFT (w/ direct bilirubin), and CMP (labs not done today)
- EGD to assess for gastritis/PUD
- NPO after midnight
Appreciate Cardiology reccomendations and optimization.
Total Time Spent with Patient (in minutes): 32
-
-
Thank you for consultation and allowing me to participate in the patient's care. Please call the diagnostic cardiac sonographer GI physician during the after hours with any questions or concerns.
[2025-07-17] MEDS: LIPITOR 20 MG PO (17:44)
[2025-07-17] MEDS: MIRALAX 17 GRAMS PO (17:44)
[2025-07-17 19:41] VITALS: BP 134/77
[2025-07-17] MEDS: FLOMAX 0.8 MG PO (20:00)
[2025-07-17] MEDS: PROTONIX IV 40 MG IV (20:12)
[2025-07-17] MEDS: CARAFATE 1 GRAM PO (20:12)
[2025-07-17] MEDS: NSS (PRESERVATIVE FREE) 10 ML IV (20:12)
[2025-07-17 23:40] VITALS: BP 138/68
[2025-07-18] VITALS (8 sets, daily range): BP systolic 122–175; BP diastolic 69–92
[2025-07-18] MEDS: ULTRAM 50 MG PO ×2 (04:02→10:12)
[2025-07-18] MEDS: SYMBICORT 160/4.5 MCG INHALER 2 PUFF INH (07:57)
[2025-07-18 08:15] LABS: ALT (SGPT) 24 U/L (0-50); AST (SGOT) 18 U/L (17-59); Albumin 3.0 g/dl (3.5-5.0); Alkaline Phosphatase 52 U/L (38-126); Blood Urea Nitrogen 33 mg/dl (9-20); Calcium 8.4 mg/dl (8.4-10.2); Carbon Dioxide 29 mmol/L (22-30); Chloride 98 mmol/L (98-107); Estimated Creatinine Clearance 70 ml/min; Glucose 91 mg/dl (70-99); Potassium 3.6 mmol/L (3.5-5.1); Sodium 131 mmol/L (135-145); Total Protein 5.4 g/dl (6.3-8.2); eGFR > 60.00
[2025-07-18] MEDS: CARAFATE PO (08:28)
[2025-07-18] MEDS: PROTONIX IV 40 MG IV (08:28)
[2025-07-18] MEDS: DETROL LA 4 MG PO (08:29)
[2025-07-18] MEDS: TOPROL XL 12.5 MG PO (08:29)
[2025-07-18] MEDS: NSS (PRESERVATIVE FREE) 10 ML IV (08:29)
[2025-07-18] MEDS: MIRALAX PO (08:36)
--- NOTE | 2025-07-18 09:58 | W.PN.CARDCBS ---
Addendum entered and electronically signed by Rigoberto Flaherty MD 07/18/25 15:03:
I saw and examined the patient.
The General Maintenance Technician's note was reviewed and I agree with the note.
Comment:
GEN: No distress, awake, Ox3
HEENT: supple, anicteric, mmm
LUNGS: scatt rhonchi
CV: Reg, S1/S2, 1/6 syst LSB, no murmur
ABD: soft, BS+, NT/ND
EXT: No edema
NEURO: Gross non-focal
SKIN: No rash
Plan:
Stable for discharge from cardiology standpoint.
Lexiscan nuclear stress test arranged in 2 weeks. Patient was advised if he has worsening symptoms to call office/returbn to ER
Continue metoprolol and atorvastatin.
Original Note:
Today's Communication / Plan
-
Cardiology follow-up arranged
Impression / Plan
-
PCP: Jerrell Griffiths
Fire Inspector: None prior to admission, initially seen by Dr. Nimo Stewart
Impression:
Presented 07/16/2025 with abdominal pain, nausea and vomiting x 3 to 4 days
Possible gastritis
Abnormal bilirubin
Abnormal troponin
Hypertension
Hyperlipidemia
Chronic right bundle branch block
Chronic NSAID with Naproxen use due to orthopedic/hip pain
Asthma
Nephrolithiasis
BPH
Venous insufficiency with varicose veins with prior surgical intervention
Prior tobacco abuse
Echo 07/16/2025: EF 63% by Malhotra's method. Stage I DD. Mildly increased LV wall thickness. No significant valvular disease.
Plan:
-Presented 07/16/2025 with abdominal pain, nausea and vomiting for a few days which started after patient was on prednisone taper for hip pain.
-Patient had upper endoscopy 07/18/2025 and there was evidence of localized erythema in the gastric antrum and biopsies were taken to look for H. pylori
-Overall patient is symptomatically improved following cessation of NSAIDs since admission.
-From a CV perspective, Troponin peaked at 0.236. No ischemic changes on ECG. Echo without WMA and EF preserved. Patient never had chest pain
-Seems unlikely that nausea is a symptom of ACS, but patient should have eventual stress test due to elevated Troponin.
-Patient prefers stress test at [facility] as he lives in [place] so he is scheduled for stress test 08/05/2025. Patient was given instructions and testing slip prior to discharge by me.
-Lipids 07/16/2025 TC 136, HDL 36, LDL 77, triglycerides 115.
-proBNP 762. BUN 49, creatinine 1.2. Med rec on admission listed Lasix 20 mg daily, but then patient said this was not actually a daily medication for him and it was not continued at discharge.
HPI 07/16/2025: Patient is a 71-year-old male with past medical history significant for hypertension, hyperlipidemia, chronic right bundle branch block, asthma, BPH, nephrolithiasis, venous insufficiency and chronic NSAID use who presented to
emergency department 07/16/2025 with abdominal discomfort, nausea and vomiting for several days. Patient was recently on prednisone taper for hip pain. Around this time he started developing abdominal discomfort associated with nausea and reflux
symptoms then developed vomiting daily for several days. He denied having chest pain or shortness of breath. Due to worsening GI symptoms he presented to emergency department 07/16/2025. His blood pressure was initially normotensive but then
became hypertensive at 185/88 which was felt to be related to increased anxiety but has since normalized. EKG showed sinus rhythm with right bundle branch block. Noted to have elevated troponin initial 0.233 with repeat 0.236. proBNP unremarkable
at 762, creatinine 1.2, total bilirubin was mildly elevated at 2.4. CT of abdomen and pelvis performed with results pending. Cardiology being asked to see patient for abnormal troponin. Patient has never seen cardiology he has no prior history of
arrhythmias, heart failure, coronary artery disease.
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 He reports since that time physically he has declined
Progress Note - Fire Inspector
Subjective
Date of Service: July 18, 2025
Abdominal discomfort is improving. He is less nauseous
Objective
Labs:
07/16/25 06:23
07/18/25 06:35
Labs
Hgb 15.2 g/dL (13.0-18.0) 07/16/25 06:23
Hct 43.7 % (39.0-52.0) 07/16/25 06:23
Plt Count 167 10^3/uL (130-400) D 07/16/25 06:23
Sodium 131 mmol/L (135-145) L 07/18/25 06:35
Potassium 3.6 mmol/L (3.5-5.1) 07/18/25 06:35
BUN 33 mg/dl (9-20) H 07/18/25 06:35
Creatinine 0.9 mg/dL (0.7-1.3) 07/18/25 06:35
Glucose 91 mg/dl (70-99) 07/18/25 06:35
Troponins
07/16/25 07/16/25 07/16/25
00:22 04:38 12:48
Troponin I 0.233 H* 0.236 H* 0.184 H*
07/16/25
17:16
Troponin I 0.163 H*
Vital Signs and I&O:
Vital Signs
Temp Pulse Resp BP Pulse Ox
97.2 F 65 24 159/74 96
07/18/25 09:38 07/18/25 09:39 07/18/25 09:39 07/18/25 09:39 07/18/25 09:39
Vital Signs
Temp Pulse Resp BP Pulse Ox
97.2 F 65 24 159/74 96
07/18/25 09:38 07/18/25 09:39 07/18/25 09:39 07/18/25 09:39 07/18/25 09:39
Intake & Output
07/16/25 07/17/25 07/18/25 07/19/25
06:59 06:59 06:59 06:59
Intake Total 960 / 960 1680 / 1680
Output Total 500 / 500
Balance 460 / 460 1680 / 1680
Physical Exam
Physical Exam
GEN: NAD. AAO x3
LUNGS: RA. No audible wheeze
CV: SR on tele. Reg, no murmur
[2025-07-18] MEDS: CARAFATE 1 GRAM PO (11:30)
[2025-07-18] MEDS: ZOFRAN 4 MG IV (11:31)
--- NOTE | 2025-07-18 12:16 | W.DCSUMMARY ---
Discharge Summary
Discharge Data
Date of Admission: 07/16/25
Date of Discharge: 07/18/25
-
Pending Results: Yes (Gastric biopsies)
Hospital Course
Primary diagnosis:
Acute gastritis
Abnormal troponins
Secondary diagnosis:
Primary hypertension
Benign prostatic hypertension
Asthma
Hyperlipidemia
Osteoarthritis status post multiple hip surgeries
Hospital course:
Patient presents with several days of abdominal discomfort including burning abdominal sensation and nausea. He saw his orthopedic surgeon 2 weeks ago for left hip pain and so he was started on steroids thinking probable bursitis. His hip pain got
much improved with prednisone but then he started to have abdominal pain with nausea as above.
He also takes daily Naprosyn twice daily and the concern was if this was upper GI related pathology.
[place] was abnormal troponin with a peak of 0.2. He had no acute coronary syndrome symptoms. No ischemic changes were noted on EKG. He had an echo without wall motion abnormality and EF EF was preserved. He had no chest pains. Cardiology
reviewed patient and arrange for an outpatient follow-up.
After that with continued GI symptoms he went on to have upper GI endoscopy which showed gastritis. Suspicion was the use of prednisone along with NSAIDs. He was advised to stop NSAIDs going forward. He was put on Protonix. Hemoglobin was
stable. No dysphagia.
To help with his chronic pain NSAIDs were switched to as needed tramadol for now.
Consultants on board:
GI-Maureen Seo Do
Cardiology-Nimo Gates
Discharge Plan
-
Patient Disposition: Home (Routine Discharge)
Discharge Diagnosis/Procedures: Acute gastritis;abnormal troponins
Diet: Regular
Activity: As tolerated
Driving Restrictions: As prior to admission
Bathing Restrictions: None
Referrals:
Maureen Evans MD [Active, Gastroenterology]
Referral Note: 4-8wks for gastritis
Nimo Stewart DO [Active, Cardiology]
Referral Note: The cardiology office will call you to schedule stress test. We are also working on hospital follow-up appointments.
Jerrell Griffiths DO [Family Provider, Family Practice] - in less than 1 week
Prescriptions:
New
sucralfate 1 gram Tablet
1 g PO ACHS Qty: 60 0RF
pantoprazole [Protonix] 40 mg tablet,delayed release (DR/EC)
40 mg PO DAILY Qty: 30 0RF
tramadol 50 mg Tablet
50 mg PO Q6HPRN PRN (Reason: moderate pain) Qty: 20 0RF
polyethylene glycol 3350 [Miralax] 17 gram powder in packet
17 g PO DAILY PRN (Reason: Constipation) Qty: 14 0RF
Continued
simvastatin 40 MG tablet
40 mg PO QPM
tamsulosin [Flomax] 0.4 mg Capsule
0.4 mg PO DAILY
albuterol sulfate 1 PUFF HFA aerosol inhaler
2 puff inhalation R Q4HPRN PRN (Reason: asthma)
metoprolol succinate [Toprol XL] 25 mg Tablet Extended Release 24 Hr
12.5 mg PO DAILY
solifenacin [Vesicare] 10 mg Tablet
10 mg PO DAILY
fluticasone furoate-vilanterol [Breo Ellipta] 200-25 mcg/dose Blister With Device
1 inh INHALATION R DAILY
Rx Instructions:
200/25
tramadol 50 mg Tablet
50 mg PO DAILYPRN PRN (Reason: moderate pains)
Medical Marijuana
1 puff inhalation DAILYPRN PRN (Reason: anxiety)
Discontinued
naproxen 500 MG tablet
500 mg PO BID
Discharge Orders:
Discharge Patient (As Directed); Ordered 07/18/25
Ordered By: Liu Reynoso
Discharge Date and Time
Print Language: SPANISH
[2025-07-18 21:28] LABS: Hepatitis C Antibody Negative (Negative)
== END 2025-07-18 16:39 | disposition home or self-care (01) ==
LOC: 4 EAST ACU 05:05
PROVIDERS: Student in an Organized Health Care Education/Training Program; ADMITTING PHYSICIAN Internal Medicine; ATTENDING PHYSICIAN Internal Medicine; CONSULT PHYSICIAN Internal Medicine Cardiovascular Disease; CONSULT PHYSICIAN Internal Medicine Gastroenterology; EMERGENCY PHYSICIAN Emergency Medicine; FAMILY PHYSICIAN Family Medicine
DX: K29.00 Acute gastritis without bleeding (principal); R79.89 Other specified abnormal findings of blood chemistry; R12 Heartburn; R13.10 Dysphagia, unspecified; K44.9 Diaphragmatic hernia without obstruction or gangrene; K31.89 Other diseases of stomach and duodenum; N40.0 Benign prostatic hyperplasia without lower urinary tract symptoms; I10 Essential (primary) hypertension; J45.909 Unspecified asthma, uncomplicated; Z79.899 Other long term (current) drug therapy; K59.09 Other constipation; M19.90 Unspecified osteoarthritis, unspecified site; Z87.891 Personal history of nicotine dependence; I87.2 Venous insufficiency (chronic) (peripheral)
CPT/HCPCS: 43239; 74177; 80053; 80061; 82248; 83036; 83880; 84484; 85025; 85027; 85652; 86140; 86803; 87811; 88305; 88342; 93005; 93306; 94640; 96361; 96374; 96375; 99285; G0378; Q9967

== ENCOUNTER 2025-08-11 15:09 | Inpatient (IN) | payer MEDICARE, OTHER, SELFPAY ==
[2025-08-11] VITALS (10 sets, daily range): BP systolic 107–172; BP diastolic 74–97; PULSE 53–95; BMI 26.0
[2025-08-11] MEDS: NSS 500 IV (12:29)
[2025-08-11 12:42] LABS: Urine Character Clear (Clear)
--- NOTE | 2025-08-11 12:44 | ED.GENMED ---
History of Present Illness
General
Chief Complaint: Change in Mental Status
Source: patient, family and ambulance crew
Exam Limitations: none
Time Seen by Provider: 08/11/25 11:36
Nursing documentation reviewed up to this point in time: agreed with
History of Present Illness
History of Present Illness:
75 yo male from home, hx of HTN, HLD, Kidney stones, Anxiety, Asthma, Multiple Bilat hip surgeries, cholecystectomy, BPH, arthritis, presents from home continued weakness over past month since DC from on 07/18/25 for Acute gastritis (confirmed w
upper GI), and NSAIDs were switched to Tramadol.
Family ( and nephew Bj) at bedside state he has not been eating for past 4 days, last ambulated 4 days ago, he keeps to himself and doesn't complain of pain, states he's dizzy whenever he's asked what's wrong.
Past History
Past History
ED Past Medical History: Asthma, HTN, Hypercholesterolemia and Other (Kidney stones)
ED Past Surgical History: Cholecystectomy and Orthopedic (4 hip replacements, right hand with pins)
Patient has exhibited threatening behavior?: No
PSI?: No
Social History
Tobacco: Former smoker
Alcohol: None
Personal:
Living: with family
Employment: Retired
Family History
Family History: Hypertension
Review of Systems
Review of Systems
Allergies reviewed?: Yes
All Other Systems: ROS reviewed and negative except as documented in HPI and ROS
Constitutional: Reports fever and fatigue
Respiratory: Denies cough or trouble breathing
Cardiac: Denies chest pain
ABD/GI: Reports other (incontinent of stool); Denies abdominal pain, vomiting or diarrhea
: Denies difficulty voiding
Musculoskeletal: Reports joint pain (chronic hip pains) and edema (trace bilatera )
Skin: Reports other (scrapes both knees, buttocks, left elbow)
Neurological: Reports dizzy and weakness; Denies headache
Phy Exam
Physical Exam
Physical Exam:
GENERAL: No acute distress. A&Ox3.
CONSTITUTIONAL: Temp 101.6
EYES: clear, conjunctivae normal
ENMT: dry mucus membranes, Pharynx nl
RESPIRATORY: Regular respirations, nonlabored, lungs clear.
CARDIOVASCULAR: Regular rate and rhythm, tachycardic, no murmurs, no rubs.
GI: Soft, nontender, normal BS. Incontinent of brown stool.
MUSCULOSKELETAL: Winces in pain with any movement (chronic bilateral hip pain). Trace pitting edema bilateral ankles.
SKIN: Warm, dry, pink. Deep clean abrasions both knees, left elbow and large one on buttocks. Surrounding skin is normal and without infection.
PSYCH: Depressed mood and affect.
NEUROLOGIC: Awake, generally weak, oriented. No focal neurological deficits
Sepsis
Sepsis Screening
Sepsis Assessment: Sepsis Ruled Out
Sepsis Screen
Sepsis Screen: Sepsis Ruled Out
Date: 08/11/25
Time: 18:32
Course
Orders/Labs/Results
Orders:
Orders
08/11/25 11:37
0.9% Sodium Chloride 500 ml [Nss] 500 ml IV BOLUS
08/11/25 12:14
Comprehensive Metabolic Panel Urgent
Creatine Phosphokinase Urgent
Comment: ADD ON
Lactic Acid Q4H
Comment: CANCEL 2nd LACTIC ACID IF 1st LACTIC ACID IS LESS THAN 2
NT-proBNP Urgent
Troponin I Urgent
Urinalysis Reflex To Culture Urgent
Date Specimen was Collected: 08/11/25
Time Specimen was Collected: 12:00
Urine Microscopic Reflex Cult Urgent
Blood Culture Q30M
DAVID Source: Blood/Venous
Specimen Description:
Blood Culture Q30M
DAVID Source: Blood/Venous
Specimen Description:
Urine Culture Urgent
DAVID Source: U
Specimen Description:
Date Specimen was Collected: 08/11/25
Time Specimen was Collected: 12:00
08/11/25 12:22
Acetaminophen [Tylenol] 1,000 mg PO NOW STA
08/11/25 12:36
Acetaminophen [Tylenol/Feverall] 650 mg RECTAL NOW STA
08/11/25 12:55
Complete Blood Count/With Diff Urgent
08/11/25 13:08
CT Head W/o Iv Contrast Urgent
Comment:
Reason For Exam: change in MS, falls
08/11/25 13:12
CR Chest - 2 Views Urgent
Comment:
Reason For Exam: fever, change in MS
08/11/25 13:13
Add On- LAB Urgent
Tests Added?: CPK
08/11/25 13:17
Cefepime HCl [Maxipime] 2,000 mg IV NOW STA
Piperacillin/Tazo 4.5 Gram [Zosyn] 4.5 gram in 100 ml IV NOW
08/11/25 14:53
Admit/Transfer Patient As Directed
Co-Sign Provider:
Level of Care: Inpatient admission
Assign to:: Medical/Surgical
Physician / Group: Guillermo Rendon
Diagnosis: sepsis, UTI, RUDOLPH
Reason for Hospitalization: sepsis, UTI, RUDOLPH
Expected length of stay greater than two midnights?: Yes
ELOS- Estimated Length of Stay in days: 3
I certify the patient meets the requirements for IP care: Yes
08/11/25 14:54
PRN Pain Medication Management As Directed
May give lesser potent ordered pain med per pt: Yes
preference::
Protocol:: Medication orders for pain may be administered in a
manner that supports deferring to patient preference
when the pt is:
- Requesting an ordered lesser potent pain medication.
Least to most potent pain medications are defined
as: acetaminophen < NSAID < tramadol < opioids
(morphine, oxycodone, hydromorphone).
- Requesting a lesser dose of the same medication IF
ORDERED.
- Requesting a less intrusive route of administration
if both routes are prescribed by the provider (PO <
IV).
08/11/25 14:57
Code Status As Directed
Resuscitation Status: Do not resuscitate
Reached after discussion with pt or family/Healthcare POA: Yes
DNR Bracelet Application ONCE
08/11/25 Dinner
Regular
At Your Request: Full Participation
Does patient need a safe tray?: No
08/11/25 16:00
Lactic Acid Q4H
Comment: CANCEL 2nd LACTIC ACID IF 1st LACTIC ACID IS LESS THAN 2
08/11/25 16:52
0.9% Sodium Chloride 1000 ml [Nss] 1,000 ml IV 100 mls/hr
Acetaminophen [Tylenol] 650 mg PO Q4HPRN PRN
Albuterol [ProAIR HFA INHALER] 2 puff INH R Q4HPRN PRN asthma
Heparin 5,000 units SC Q8
Sucralfate [Carafate] 1 gram PO ACHS
08/11/25 16:52
Activity As Directed
Activity Level: As Tolerated
Vital Signs As Directed
Frequency: Per unit guidelines
Weight As Directed
Frequency: Once
Comment: on admission
PT Consult [Pt Eval And Treat] Routine
Activity Level: As Tolerated
DX Deep Vein Thrombosis Video Routine
08/11/25 18:00
Atorvastatin [Lipitor] 20 mg PO QPM
08/11/25 20:00
Budesonide/Formoterol 160/4.5 [Symbicort 160/4.5 Mcg Inhaler] 2 puff INH R BID
08/12/25 06:00
Basic Metabolic Panel IN AM
Complete Blood Count/No Diff IN AM
08/12/25 08:00
Metoprolol Xl [Toprol Xl] 12.5 mg PO DAILY
Pantoprazole [Protonix] 40 mg PO DAILY
Tamsulosin [Flomax] 0.4 mg PO DAILY
Tolterodine Extended Release [Detrol LA] 4 mg PO DAILY
08/12/25 12:00
CefTRIAXone [Rocephin] 1,000 mg IV Q24H
Abnormal Lab Results
08/11/25 08/11/25
12:14 12:55
WBC 14.9 H 10^3/uL
(4.8-10.8)
Hgb 18.1 H g/dL
(13.0-18.0)
Hct 53.7 H %
(39.0-52.0)
RDW 14.6 H %
(11.5-14.5)
MPV 12.4 H fL
(7.4-10.4)
Abs Immat Gran (auto) 0.1 H 10^3/uL
(0-0.05)
Absolute Neuts (auto) 13.6 H 10^3/uL
(1.4-6.5)
Absolute Lymphs (auto) 0.4 L 10^3/uL
(1.2-3.4)
Absolute Monos (auto) 0.7 H 10^3/uL
(0.1-0.6)
Immature Gran % 0.9 H %
(0-0.5)
Neutrophils % 91.6 H %
(42.2-75.2)
Lymphocytes % 2.8 L %
(20.5-51.1)
Sodium 134 L mmol/L
(135-145)
BUN 56 H mg/dl
(9-20)
Creatinine 1.7 H mg/dL
(0.7-1.3)
Glucose 174 H mg/dl
(70-99)
Lactic Acid 3.1 H mmol/L
(0.7-2.0)
Total Bilirubin 2.2 H mg/dl
(0.2-1.3)
AST 97 H U/L
(17-59)
ALT 61 H U/L
(0-50)
Creatine Kinase 4172 H U/L
(55-170)
Troponin I 0.103 H* ng/ml
Albumin 3.4 L g/dl
(3.5-5.0)
Urine Ketones 1+ A
(Negative)
Ur Occult Blood Reflex 4+ A
(Negative)
Urine Nitrite (Reflex) Positive A
(Negative)
Urine Bilirubin 2+ A
(Negative)
Urine Urobilinogen 2+ A
(Neg - 1+)
Leukocyte Esterase Rfl 1+ A
(Negative)
Urine Bacteria (Reflex) Moderate A
(Negative)
Urine Glucose 1+ A
(Negative)
Urine Albumin (Reflex) 3+ A
(Neg - Trace)
08/11/25 12:55
08/11/25 12:14
Vital Signs
Initial and Last Documented VS:
Initial Vital Signs
Pulse Resp BP
125 16 161/97
08/11/25 11:34 08/11/25 11:34 08/11/25 11:34
Last Documented Vital Signs
Temp Pulse Resp BP Pulse Ox
97.6 F 94 18 162/95 95
08/11/25 17:00 08/11/25 17:00 08/11/25 17:00 08/11/25 17:00 08/11/25 17:00
Gas Treater consulted with Physician
Gas Treater consulted with physician?: Yes
Name of Physician Consulted: Elaine
MDM/Problems Addressed
Differential Diagnosis Includes:
Dehydration, UTI, electrolyte imbalance, deconditioning,
MDM/Problems Addressed:
75 yo male from home, hx of HTN, HLD, Kidney stones, Anxiety, Asthma, Multiple Bilat hip surgeries, cholecystectomy, BPH, arthritis, presents from home continued weakness over past month since DC from on 07/18/25 for Acute gastritis (confirmed w
upper GI), had unremarkable Abd/Pelvis CT and NSAIDs were switched to Tramadol.
Family ( and nephew Bj) at bedside state he has not been eating for past 4 days, last ambulated 4 days ago, he keeps to himself and doesn't complain of pain, states he's dizzy whenever he's asked what's wrong. states she found him naked,
on the floor by his recliner, they helped him up and that's where he remained until today when Bj stopped by and saw the state he is in and knew he had to come to the hospital.
Temp 101.6,
1:00 p .m.
Multiple subacute deep clean abrasions both knees, left elbow, large one on buttocks, looks as if he was scooting along in attempt to get up from falls.
CBC: WBC 14.9
CMP: BUN/Creat56/1.7 acute renal insufficiency d/t dehydration,
Troponin: 0.013, secondary to infection, trending down from previous
U/A shows infection
Case discussed with Dr. Henry
<del>P</del>shyanne: Admit: SIRS, UTI,
Cefepime, Zosyn
Hospitalist notified of admission.
*Pulse Oximetry
SaO2: 96
Oxygen Mode of Delivery: Room air
Patient hypoxic: no
*Critical Care Note
Total Time (30-74mins, 75-104mins- exclusive of procedures): Not Applicable
ED Attending Note
-
Portions of this chart may have been created with voice recognition software.� Occasional wrong word or��sound alike� substitutions may have occurred due to the inherent limitations of voice recognition software.
Discharge Plan
Departure
Patient Disposition: Admit
Date of Disposition: 08/11/25
Time of Disposition: 13:59
Presentation/result/management discussed w/ accepting MD/DO: Hospitalist
Condition: Serious
Discharge Problem:
SIRS (systemic inflammatory response syndrome), Acute UTI
Interventions
Interventions:
*Risk Screen - Suicide Last Done: 08/11/25 11:53
*General Assessment Last Done: 08/11/25 11:53
*Neglect/Abuse Screening Last Done: 08/11/25 11:53
*ED- Fall Risk Assessment Last Done: 08/11/25 11:56
*ED COVID-19 Vaccine History Last Done: 08/11/25 11:56
*Nursing Disposition Last Done: 08/11/25 17:00
ED- Pulmonary Assessment Last Done: 08/11/25 11:56
ED-Psychological Assessment Last Done: 08/11/25 17:00
ED- Neurological Assessment Last Done: 08/11/25 11:56
ED- Cardiac Assessment Last Done: 08/11/25 11:56
ED Swallowing Screen Last Done: 08/11/25 12:33
Discharge Date and Time
Discharge Date/Time: 08/11/25 17:01
[2025-08-11] MEDS: TYLENOL/FEVERALL 650 MG RECTAL (12:45)
[2025-08-11 12:52] LABS: ALT (SGPT) 61 U/L (0-50); AST (SGOT) 97 U/L (17-59); Albumin 3.4 g/dl (3.5-5.0); Alkaline Phosphatase 77 U/L (38-126); Blood Urea Nitrogen 56 mg/dl (9-20); Calcium 9.5 mg/dl (8.4-10.2); Carbon Dioxide 25 mmol/L (22-30); Chloride 99 mmol/L (98-107); Estimated Creatinine Clearance 39 ml/min; Glucose 174 mg/dl (70-99); Potassium 4.8 mmol/L (3.5-5.1); Sodium 134 mmol/L (135-145); Total Protein 6.6 g/dl (6.3-8.2); eGFR 41.78
[2025-08-11 12:54] LABS: Urine Red Blood Cell 0-2 /HPF (0-2)
[2025-08-11 13:06] LABS: Hematocrit 53.7 % (39.0-52.0); Hemoglobin 18.1 g/dL (13.0-18.0); Mean Corp Hgb Conc. 33.7 g/dL (33.0-37.0); Mean Corpuscular Volume 91.8 fL (80.0-94.0); Nucleated Red Blood Cells % 0 % (-); Platelet Count 250 10^3/uL (130-400); Red Cell Dist. Width 14.6 % (11.5-14.5)
[2025-08-11 13:06] LABS: Troponin I 0.103 ng/ml
[2025-08-11] MEDS: ZOSYN 100 IV (14:22)
[2025-08-11] MEDS: MAXIPIME 2000 MG IV (14:22)
--- NOTE | 2025-08-11 15:47 | HPS.HSE ---
Family Physician
-
Family Physician: Jerrell Griffiths
Chief Complaint
-
Generalized weakness and recurrent fall
History of Present Illness
75-year-old male who lives at home with the brought to the hospital by EMS after the nephew called, with a known history of COPD asthma, hypertension, according to the family usually he is independent walking around all of the last few days he
is gradually becoming weak and largely lethargic with poor oral intake and hydration, looks like the called the nephew yesterday
Overall he was very weak and largely lethargic and he asking to go to the hospital look like the patient declined but he told him if he is not improving by tomorrow then I will get it taken, the nephew visited again he was basically disabled
therefore he brought him to the hospital he is been falling frequently after he gets up sound like according to the family he get dizzy and hit the ground, may have some abrasion of the left knee. Patient sleepy but easily arousable oriented x 3
answer question briefly but properly, did any particular complaint admits increased urinary frequency but no fever or chill any chest pain or shortness of breath or cough or congestion. Workup in the ER, concerning for UTI there is mild elevation
of the troponin.
Medical History
Past Medical History
Past Medical History: Reports Other
Additional Past Medical History:
Past medical history:
Asthma:
Chronic arthritis arthritis
Urinary frequency
Dyslipidemia
Surgical history:
Tonsillectomy
Cystoscopy, lithotripsy and right ureteric stone
Social history: Lives at home with , ambulates with and without permit review assistant, no smoking or alcohol use
Family history: Reviewed and noncontributory
Past Surgical History: Reports Other
Social History
Unable to obtain full social history at this time due to: Other
Family History
Family History: Other
Allergies / Home Medications
Allergies reflects when Allergies were last updated in [facility].
Home Medications with original date entered in [facility]
Allergy/Medication List:
Allergies
Allergy/AdvReac Type Severity Reaction Status Date / Time
No Known Allergies Allergy Verified 07/15/25 19:51
Home Medications
albuterol sulfate 90 mcg/actuation aerosol inhaler 2 puff inhalation R Q4HPRN PRN asthma 06/16/12
simvastatin 40 mg tablet 40 mg PO QPM 06/16/12
tamsulosin 0.4 mg capsule (Flomax) 0.4 mg PO DAILY 06/16/12
fluticasone furoate 200 mcg-vilanterol 25 mcg/dose inhalation powder (Breo Ellipta) 1 inh inhalation R DAILY 06/19/23
metoprolol succinate 25 mg tablet,extended release 24 hr (Toprol XL) 12.5 mg PO DAILY 06/19/23
solifenacin 10 mg tablet (Vesicare) 10 mg PO DAILY 06/19/23
Medical Marijuana 1 puff inhalation DAILYPRN PRN anxiety 07/16/25
tramadol 50 mg tablet 50 mg PO DAILYPRN PRN moderate pains 07/16/25
pantoprazole 40 mg tablet,delayed release (Protonix) 40 mg PO DAILY #30 tabs 07/18/25
polyethylene glycol 3350 17 gram oral powder packet (Miralax) 17 g PO DAILY PRN Constipation #14 ea 07/18/25
sucralfate 1 gram tablet 1 g PO ACHS #60 tabs 07/18/25
Review of Systems
-
A 12 point ROS was completed and negative except as noted: Yes
Physical Exam
Vital Signs
Vital Signs
Temp Pulse Resp BP Pulse Ox
101.6 F H 102 22 137/93 76
08/11/25 11:53 08/11/25 14:45 08/11/25 14:45 08/11/25 14:33 08/11/25 14:31
Physical exam:
General: Lethargic, sleepy but easily arousable oriented x3, not in distress and his conversation answers are brief but appropriate
HEENT: No active discharge, ecchymosis or bruising, but is dry lips, tongue and mucous membrane.
Eyes: No discharge or red conjunctiva, no nystagmus, pupils are reactive and equal
Neck:Supple, no JVD no bruit no goiter.
Respiratory: Normal AP contour and diameter, normal chest wall movement, normal respiratory effort, no respiratory distress,
Lungs: Good air entry bilaterally, no wheezing or rhonchi, no rales or crackles
Heart: S1, S2 regular, normal rate, no added sound.
Gastrointestinal: Positive bowel sounds, soft, nontender, no guarding or rigidity or organomegaly
Musculoskeletal: Abrasion on the left knee, with no evidence of infection no active discharge, no chest wall abnormality or tenderness. Moves extremities freely
Extremities: Moderate bilateral lower extremity pitting edema, good peripheral pulses, good range of motion
Skin: Warm and dry, no ulceration, normal color.
Neurological: Lethargic but oriented, speaks in low tone of voice, move extremities freely,
Physical Exam
HEENT: Other
Laboratory Results
-
08/11/25 12:55
08/11/25 12:14
Laboratory Results
Lactic Acid 3.1 mmol/L (0.7-2.0) H 08/11/25 12:14
Total Bilirubin 2.2 mg/dl (0.2-1.3) H 08/11/25 12:14
AST 97 U/L (17-59) H 08/11/25 12:14
ALT 61 U/L (0-50) H 08/11/25 12:14
Alkaline Phosphatase 77 U/L (38-126) 08/11/25 12:14
Troponin I 0.103 ng/ml H* 08/11/25 12:14
Chest x-ray: Showed no acute cardiopulmonary normality, trace of bibasilar opacity favored to represent atelectasis
Data Reviewed
-
Diagnostic Radiology: Image Personally Visualized and interpreted and Discussed with Family
Lab Data: Labs Reviewed by me and Discussed with Family
Old Records: Reviewed
Impression/Plan
-
IMPRESSION:
75-year-old male presented to the hospital with recurrent fall, generalized weakness and poor appetite, concerning for UTI, acute kidney injury, dehydration and orthostatic hypotension.
Acute sepsis: With leukocytosis, mentation change, acute kidney injury, fevers temperature was 101, concerning for UTI while Eliquis need to be considered
- Rocephin can be de-escalated pending culture and sensitivities
Monitor vital sign
Culture collected
IV fluid
Recheck lab
Generalized weakness:
Mild multifactorial including UTI, dehydration while orthostatic hypotension could be a possibility as well as acute kidney injury
PT
Close monitoring
Assess functional status
Elevated troponin: Likely demand ischemia as patient has no chest pain, as discussed with the family we will hold cardiology consult for further workup, stroke is much higher patient Symptomatic
UTI:
IV Rocephin can be de-escalated pending culture and sensitivity
Acute on chronic renal failure: Likely secondary to poor intake and dehydration
IV fluid
Awaiting for toxin
Recheck
Dizziness and recurrent fall, especially when he gets up, can concerning for dehydration orthostatic hypotension
IV fluid
Orthostatic vital sign check
If not improving then may consider echo, MRI brain and MRA head and neck.
All discussed with the patient and the family in detail and expressed understanding and all the question answered
CODE STATUS according to the is DNR/DNI
DVT prophylaxis heparin sup
--- NOTE | 2025-08-11 17:17 | PTCARENOTE ---
Pt transferred from ED. Pt slid over into bed. Pt AAOX2/3, VSS, forgetful, bed alarm applied. Pt oriented to room, call fernandez within reach. Will continue to monitor.
[2025-08-11] MEDS: NSS 1000 IV (17:49)
[2025-08-11] MEDS: LIPITOR 20 MG PO (17:51)
[2025-08-11] MEDS: HEPARIN 5000 UNITS SC ×2 (17:51→23:13)
[2025-08-11] MEDS: CARAFATE 1 GRAM PO ×2 (17:51→21:14)
[2025-08-11 19:10] LABS: Troponin I 0.095 ng/ml
[2025-08-11] MEDS: SYMBICORT 160/4.5 MCG INHALER 2 PUFF INH (19:28)
[2025-08-11 23:20] LABS: Troponin I 0.077 ng/ml
--- NOTE | 2025-08-12 01:48 | PTCARENOTE ---
pt with complaint feeling the need to urinate but unable to. bladder scan performed for 410ml. Agnes SCHNEIDER made aware and ordered bladder scan/straight cath protocol. pt updated on the order
[2025-08-12] MEDS: NSS 1000 IV ×3 (03:21→23:00)
[2025-08-12] MEDS: SYMBICORT 160/4.5 MCG INHALER 2 PUFF INH ×2 (07:15→19:14)
--- NOTE | 2025-08-12 07:19 | W.PN.HOSP.TC ---
Today's Communication/Plan
-
- CT a/p w contrast
- Pending blood cx, viral panel
- Continue empiric ceftriaxone
- Continue IVF
- Repeat orthostatics
- Hold lipitor
Assessment / Plan
Assessment / Plan
Mike Jean Baptiste is a 75yo M with a pmh notable for HTN, HLD, arthritis, nephrolithiasis, BPH, & recent admission for acute gastritis (d/c 07/18/25; NSAID>tramadol) who p/w subacute generalized weakness, poor appetite, & recurrent falls, with workup
in ED c/f UTI and prerenal RUDOLPH.
#FUO
On presentation: leukocytosis WBC 14.9; mentation change; fever of 101.6. Initially had suspected UTI, given +LE, nitrite, hx of straight cathing frequently at home, but less likely given negative urine cx & WBC only 6-10. CXR (08/11) without
evidence of cardiopulm abnormality; PNA unlikely.
Today, urine cx negative. Endorsing severe L groin pain this am when working with PT. WBC trending down on ceftriaxone (14.9>12.7).
- CT a/p today w IV contrast
- URI viral panel pending
- Blood cx pending
- Continue empiric ceftriaxone 1000mg daily (08/11-)
#RUDOLPH, likely prerenal
#Elevated CK
Pt w evidence of dehydration, orthostatics. Had been lying on the floor for some time; had not eaten for 4 days at time of presentation before brought in by nephew. CK elevated (4172) w rhabdo contribution from lying on floor. RUDOLPH 2/2 prerenal & CK
injury. BUN/Creat 56/1.7 on admission.
Today, Cr 1.7>1.0 s/p fluids.
- Continue IVF NSS
- Continue to trend Cr
- Hold home lipitor
#Generalized weakness
#Lightheadedness & recurrent falls
Likely 2/2 poor PO intake (per family, had not eaten for past 4 days prior to admission) in s/o unidentified infectious source & pain. CT head (08/11) without ICH s/p falls. Orthostatics (just supine & sitting) demonstrated diastolic BP drop.
- Recheck orthostatics, eval while standing
- Compression socks
- PT/OT following
#Elevated troponin
Trop elevated to 0.103 at time of presentation. Trending down from infection-induced demand ischemia from admission Jun 2025. Likely 2/2 to prior elevation rather than new type I myocardial ischemia.
Trop: 0.103>0.095>0.077
- Stop trending
#Chronic
- HTN - metoprolol succinate 12.5mg daily
- HLD - lipitor 20mg daily (holding)
- BPH - tolterodine 4mg daily; tamsulosin 0.4mg daily
- Asthma - symbicort inhaler; albuterol PRN
- Anxiety - ntd
- Arthritis - acetaminophen prn; holding home tramadol
- GERD - pantoprazole 40mg daily
#Global
- DVT ppx: heparin
- Diet: regular
- Code: DNR/DNI
- Dispo: lives at home with ; PT/OT eval for discharge, pending improvement in mental status/UTI
Anticipated Discharge: 24 - 48 hours
Subjective/Interval History
-
Date of Service: August 12, 2025
Pt denies any dizziness/lightheadedness while at rest in bed. Similarly, denies any pain or weakness while in bed. Says he has not been able to move out of bed. Because of this, he was straight-cathed overnight. Says that he straight-caths at home
because his bathroom & bedroom are on different floors and require going up/down stairs. Denies any urinary retention; cath is because of mobility issues. Unable to specify if mobility issues are 2/2 weakness, arthritic pain, or fear of falling.
Denies any f/c overnight. States that he hasn't eaten anything since being in the hospital (uneaten brownie from last night on bedside table). States that he has no appetite. Did drink some milk; no n/v with that. Denies any n/v.
Objective Data
-
Labs:
Laboratory Results
08/12/25
06:00
WBC Pending
Hgb Pending
Hct Pending
Plt Count Pending
Sodium Pending
Potassium Pending
Chloride Pending
Carbon Dioxide Pending
BUN Pending
Creatinine Pending
Glucose Pending
Calcium Pending
Vital Signs:
Vital Signs
Temp Pulse Resp BP Pulse Ox
97.4 F 53 18 172/74 98
08/11/25 23:22 08/11/25 23:22 08/11/25 23:22 08/11/25 23:22 08/11/25 23:22
I&O
08/11/25 08/12/25 08/13/25
06:59 06:59 06:59
Intake Total 2109 / 2109
Output Total 425 / 425
Balance 1685 / 1685
Review of Systems
-
History Source: Patient
Constitutional: Reports No Appetite
Abdomen/GI: Reports No Symptoms
Genitourinary: Reports No Symptoms
Musculoskeletal: Reports No Symptoms
Neuro: Reports No Symptoms
Physical Exam
-
General: Well Developed, Well Nourished and Conversant
HEENT: Normocephalic, Atraumatic and Anicteric
Respiratory: Non Labored Respirations
Cardiac: Regular Rhythm
GI: Soft, Nontender and Nondistended
Skin: Warm, Dry and Other (abrasions/scabs on forehead)
Neuro: Awake and Alert
Data Reviewed
-
Total Time Spent with Patient (in minutes): 15
Critical Care Time (in minutes): 45
Labs: Labs Reviewed by me and Discussed with Patient
[2025-08-12 07:35] VITALS: BP 121/79; BP 132/100; PULSE 102; PULSE 114
[2025-08-12 07:40] LABS: Hematocrit 44.5 % (39.0-52.0); Hemoglobin 15.3 g/dL (13.0-18.0); Mean Corp Hgb Conc. 34.4 g/dL (33.0-37.0); Mean Corpuscular Volume 91.2 fL (80.0-94.0); Platelet Count 200 10^3/uL (130-400); Red Cell Dist. Width 14.2 % (11.5-14.5)
[2025-08-12 08:09] LABS: Blood Urea Nitrogen 54 mg/dl (9-20); Calcium 8.4 mg/dl (8.4-10.2); Carbon Dioxide 26 mmol/L (22-30); Chloride 104 mmol/L (98-107); Estimated Creatinine Clearance 67 ml/min; Glucose 95 mg/dl (70-99); Potassium 4.4 mmol/L (3.5-5.1); Sodium 135 mmol/L (135-145); eGFR > 60.00
[2025-08-12] MEDS: CARAFATE 1 GRAM PO ×2 (08:44→21:01)
[2025-08-12] MEDS: DETROL LA 4 MG PO (08:44)
[2025-08-12] MEDS: PROTONIX 40 MG PO (08:44)
[2025-08-12] MEDS: TOPROL XL 12.5 MG PO (08:44)
[2025-08-12] MEDS: FLOMAX 0.4 MG PO (08:44)
[2025-08-12] MEDS: HEPARIN 5000 UNITS SC ×3 (08:46→23:01)
--- NOTE | 2025-08-12 09:30 | PTCARENOTE ---
Patient's , Mary Kay, would like all medical updates. Number is [phone]
--- NOTE | 2025-08-12 09:38 | PTCARENOTE ---
Unable to obtain standing vital signs for orthostatics. Laying and sitting obtained.
--- NOTE | 2025-08-12 10:04 | PTCARENOTE ---
Patient bladder scanned for 402. Straight cath for 425 ml. PVR 53.
--- NOTE | 2025-08-12 10:31 | CM ---
Addendum entered by Teresa Davis 08/12/25 16:14:
Patient seen bedside, discussed therapy recommendations of SNF, patient agreeable to [facility]. Call to patients , Mary Kay, agreeable to referral to [facility] and [facility], provided Medicare.gov to review further facilities. is not
agreeable to explore [facility] as it is too far and wants to be able to visit patient.
Original Note:
CM reviewed chart, patient seen bedside with , Mary Kay ([phone]), initial assessment completed. Patient is a 75 yo male from home, history of HTN, HLD, Kidney stones, Anxiety, Asthma, Multiple Bilat hip surgeries, cholecystectomy, BPH,
arthritis, presents from home continued weakness over past month.
Patient resides with in a multiple story home, bedroom on third floor, two flights of steps up, typically no issue ambulating steps. One step to enter home. Patient has a RW at home but typically does not use any device. Patient has had VN in
past (35 years ago after surgery), denies SNF hx. PCP Jerrell Griffiths, Pharmacy [facility], confirms prescription coverage. Patient denies insecurities at home. PT consulted, will follow for further recommendations.
Plan; home with , watch for therapy evals for further VN/SNF needs.
[2025-08-12 10:51] VITALS: BP 156/89; PULSE 76; O2SAT 98
[2025-08-12] MEDS: CARAFATE PO ×2 (12:09→16:04)
[2025-08-12] MEDS: STERILE WATER FOR INJECTION 10 ML IV (12:16)
[2025-08-12] MEDS: ROCEPHIN 1000 MG IV (12:16)
[2025-08-12 13:27] VITALS: BMI 26.0
[2025-08-12] MEDS: ULTRAM 50 MG PO (13:32)
--- NOTE | 2025-08-12 14:55 | WOUNDNOTE ---
SACRAL/COCCYX/BUTTOCKS
--- NOTE | 2025-08-12 14:56 | WOUNDNOTE ---
L BUTTOCKS/SACRAL/COCCYX
--- NOTE | 2025-08-12 14:58 | WOUNDNOTE ---
L BUTTOCKS/UPPER POSTERIOR LATERAL THIGH
--- NOTE | 2025-08-12 14:59 | WOUNDNOTE ---
L SHOULDER (BLANCHABLE RED)
--- NOTE | 2025-08-12 15:02 | WOUNDNOTE ---
WO RN note: Patient admitted with sepsis, UTI, RUDOLPH, Rhabdomyolysis. Patient lives with . Patient may have been on the floor from Tuesday night till Tuesday.
See H&P for complete history.
PMH: COPD, asthma, HTN, arthritis, cystoscopy, lithotripsy, R ureteral stone.
Wound Location and type/assessment: Patient admitted with: unstageable L elbow ulcer pressure injury, unstageable bilateral knee pressure injury, sacral DTI, L lower buttocks DTI, R inner buttocks serous blister, L lower outer buttocks/posterior
hip dermal ulcer, L hip bruise, L shoulder blanchable red, L heel slow to otoniel red.
Appetite: poor.
Pressure redistribution devices in place: Static air overlay.
Plan: Sacral, L buttocks, knee and L elbow dressings changed. Protective foam dressing changed on heels. Patient turned to R semi side lying position with help from PCT Radha. Heels off bed with pillow. t/c SPD and ordered TruVue lite boots.
Discussed with AVINASH Le and MIGUELITO Moore.
Will update and confirm orders with Dr. Lacy Quick. Patient may need surgeon evaluation depending on direction wounds go.
Care plan to be updated and will follow as needed.
Note to case management of equipment requested for discharge: Air mattress. Discussed with MIGUELITO Mora.
Recommend follow up at wound care center upon discharge.
--- NOTE | 2025-08-12 15:25 | WOUNDNOTE ---
WO RN note: Patient admitted with sepsis, UTI, RUDOLPH, Rhabdomyolysis. Patient lives with . Patient may have been on the floor from Tuesday night till Tuesday.
See H&P for complete history.
PMH: COPD, asthma, HTN, arthritis, cystoscopy, lithotripsy, R ureteral stone.
Wound Location and type/assessment: Patient admitted with: unstageable bilateral elbow ulcer pressure injury, unstageable bilateral knee pressure injury, sacral DTI, L lower buttocks DTI, R inner buttocks serous blister, L lower outer
buttocks/posterior hip large dermal ulcer suspect from pressure (stage 2 vs evolving full thickness), L hip bruise, L shoulder blanchable red, L heel slow to otoniel red.
Appetite: poor.
Pressure redistribution devices in place: Static air overlay.
Plan: Sacral, L buttocks, knee and L elbow dressings changed. Protective foam dressing changed on heels. Patient turned to R semi side lying position with help from [facility] Radha. TruVue lite boots applied. Discussed with AVINASH Le and MIGUELITO Moore.
Will update and confirm orders with Dr. Lacy Quick. Patient may need surgeon evaluation after wounds fully declare themselves depending on extent of necrotic tissue.
Care plan to be updated and will follow as needed.
Note to case management of equipment requested for discharge: Air mattress. Discussed with MIGUELITO Mora.
Recommend follow up at wound care center upon discharge.
[2025-08-12 15:31] VITALS: BP 122/67
[2025-08-12] MEDS: TYLENOL 650 MG PO ×2 (17:01→21:01)
[2025-08-12] MEDS: ZOSYN 50 IV ×2 (17:01→23:01)
--- NOTE | 2025-08-12 18:32 | PTCARENOTE ---
CT Abdomen/Pelvis reordered for tomorrow, 08/13. Non-par dinner tray ordered for patient.
[2025-08-12 23:22] VITALS: BP 128/68
[2025-08-12 23:28] VITALS: BP 115/60; BP 128/68; PULSE 79; PULSE 95
[2025-08-13] MEDS: TYLENOL 650 MG PO ×4 (04:08→23:50)
[2025-08-13] MEDS: ZOSYN 50 IV (05:40)
[2025-08-13 07:35] VITALS: BP 152/78
[2025-08-13] MEDS: SYMBICORT 160/4.5 MCG INHALER 2 PUFF INH ×2 (07:40→19:31)
--- NOTE | 2025-08-13 07:56 | W.PN.HOSP.TC ---
Addendum entered and electronically signed by Yusef Heaton DO 08/14/25 10:11:
CDI:
-NICM due to RUDOLPH and troponin retention
-Sepsis POA, found to have bacteremia
Addendum entered and electronically signed by Lacy Quick MD, Resident 08/13/25 14:35:
CDI: troponin elevation due to non-ischemic myocardial injury due to RUDOLPH and troponin leak
Addendum entered and electronically signed by Lacy Quick MD, Resident 08/13/25 13:50:
CDI: Patient does not meet SIRS criteria for sepsis. Sepsis on admission no longer pertinent.
Original Note:
Today's Communication/Plan
-
- Ceftriaxone & vancomycin
- ID consulted
- Gen surg consulted
- Follow official read CT a/p
- Follow blood cx susceptibilities
- Wound care
- Increase pain regimen
Assessment / Plan
Assessment / Plan
Mike Jean Baptiste is a 75yo M with a pmh notable for HTN, HLD, arthritis, nephrolithiasis, BPH, & recent admission for acute gastritis (d/c 07/18/25; NSAID>tramadol) who p/w subacute generalized weakness, poor appetite, & recurrent falls, found to
have bacteremia & unstageable decubitus ulcers w CT scan suggesting internal spread of infection.
#L hip pain
#Extensive pressure ulcers, unstageable
#GPC bacteremia
#Fevers
On presentation: leukocytosis WBC 14.9; mentation change; fever of 101.6. Workup for common infectious sources (UTI, PNA, GI) negative. Pt endorsing severe L groin pain 08/12 when working with PT. Per wound care 08/12, patient with bilateral
unstageable/necrotic elbow and knee pressure injuries, L buttocks, and sacral DTI (photos in chart). Pt has not been mobile at home. Blood cx (08/12): gram positive cocci in aerobic & anaerobic bottles x2; strep. Suspect SSTI from ulcers as initial
source of FUO and current bacteremia, as well as source of pain/weakness/inability to stand. C/f osteomyelitis given L hip pain & inability to stand - pending CT.
Today: WBC trending down s/p abx (14.9>12.7>11.5). Temperature 97.8, pt has remained afebrile since admission. CT a/p (08/13): with L pelvic inflammation, fluid collection in L pelvis, L iliacus.
- Continue ceftriaxone (08/13- ; s/p ceftriaxone 08/11-08/12, s/p zosyn 08/12-) & vancomycin (08/13-)
- Follow blood cx for bacteria susceptibilities
- MRSA pending
- URI viral panel pending
- General surgery consulted for debridement, potential wound cx; appreciate recs
- Consult ID for bacteremia, appreciate recs
- Pain mgmt: add morphine 1mg PRN for breakthrough pain; increase standing tramadol to bid; schedule standing tylenol
#RUDOLPH, likely prerenal
#Elevated CK, resolving
Pt w evidence of dehydration, orthostatics. Had been lying on the floor for some time; had not eaten for 4 days at time of presentation before brought in by nephew. CK elevated (4172) w rhabdo contribution from lying on floor. RUDOLPH 2/2 prerenal & CK
injury.
Today, Cr 1.7>1.0>0.07 s/p fluids. CK: 4172>1444.
- Continue IVF NSS
- Continue to trend Cr
- Can restart lipitor
#Generalized weakness
#Lightheadedness & recurrent falls
Likely 2/2 poor PO intake (per family, had not eaten for past 4 days prior to admission) in s/o unidentified infectious source & pain. CT head (08/11) without ICH s/p falls. Orthostatics (just supine & sitting) demonstrated diastolic BP drop. 08/12 -
unable to obtain standing orthostatics b/c patient unable to stand 2/2 pain & weakness.
- Compression stockings
- PT/OT following
#Urinary retention
Pt not urinating b/c cannot stand. Denies inability to urinate. Just pain with standing/unable to stand, and states he cannot urinate while lying down. Has been getting intermittent straight cath since admission 4x.
- Arriaza for now for retention given straight cath >3x
#HTN
Pt with hx of HTN. BP has fluctuated, 152/78 this am with 160s-170s systolic on 08/11. Goes down to 120s/60s.
- Continuing home metoprolol
- Continue to monitor
#Elevated troponin, resolved
Trop elevated to 0.103 at time of presentation. Trending down from infection-induced demand ischemia from admission Jun 2025. Likely 2/2 to prior elevation rather than new type I myocardial ischemia.
Trop: 0.103>0.095>0.077
- NTD
#Chronic
- HTN - metoprolol succinate 12.5mg daily
- HLD - lipitor 20mg daily (holding)
- BPH - tolterodine 4mg daily; tamsulosin 0.4mg daily
- Asthma - symbicort inhaler; albuterol PRN
- Anxiety - ntd
- Arthritis - acetaminophen prn; continue home tramadol
- GERD - pantoprazole 40mg daily
#Global
- DVT ppx: heparin
- Diet: regular
- Code: DNR/DNI
- Dispo: lives at home with ; PT/OT eval for discharge, pending resolution of current SSTI
Anticipated Discharge: > 48 hours
Subjective/Interval History
-
Date of Service: August 13, 2025
Pt saying he's still having pain in L hip. No new complaints. Understands that he has infection. Says he needs to urinate but can't urinate unless standing & can't stand. Continuing straight cath.
Says that he got these ulcers during his last hospital admission. States that he was not seen by wound care during prior admission. Was not doing any wound care at home. Unsure if his was aware of them. He had not realized how extensive they
had become.
Objective Data
-
Labs:
Laboratory Results
08/13/25
07:50
WBC Pending
Hgb Pending
Hct Pending
Plt Count Pending
Sodium Pending
Potassium Pending
Chloride Pending
Carbon Dioxide Pending
BUN Pending
Creatinine Pending
Glucose Pending
Calcium Pending
Total Bilirubin Pending
AST Pending
ALT Pending
Alkaline Phosphatase Pending
Vital Signs:
Vital Signs
Temp Pulse Resp BP Pulse Ox
97.8 F 76 16 128/68 97
08/12/25 23:22 08/13/25 07:42 08/13/25 07:42 08/12/25 23:22 08/13/25 07:42
I&O
08/12/25 08/13/25 08/14/25
06:59 06:59 06:59
Intake Total 2110 / 2110 660 / 660
Output Total 425 / 425 1185 / 1185
Balance 1685 / 1685 -525 / -525
Review of Systems
-
Unable to obtain full review of systems at this time due to: Dementia
History Source: Patient
Genitourinary: Reports Frequency
Musculoskeletal: Reports Other (pain in L hip )
Physical Exam
-
General: Well Developed, Well Nourished and Conversant
HEENT: Normocephalic, Atraumatic and Anicteric
Respiratory: Non Labored Respirations
Cardiac: Regular Rhythm
GI: Soft, Nontender and Nondistended
Skin: Warm, Dry, Decubitus Ulcers (unstageable extensive sacral, buttocks pressure ulcers (see photos in chart) ) and Other (abrasions/scabs on forehead; bruises on L hip )
Neuro: Awake and Alert
Data Reviewed
-
Total Time Spent with Patient (in minutes): 10
Critical Care Time (in minutes): 60
CT Scan: Image personally visualized and interpreted and Report Reviewed by me
Labs: Labs Reviewed by me
[2025-08-13] MEDS: ULTRAM 50 MG PO ×2 (08:06→21:08)
[2025-08-13] MEDS: CARAFATE 1 GRAM PO ×3 (08:07→21:08)
[2025-08-13] MEDS: PROTONIX 40 MG PO (08:07)
[2025-08-13] MEDS: DETROL LA 4 MG PO (08:07)
[2025-08-13] MEDS: FLOMAX 0.4 MG PO (08:07)
[2025-08-13] MEDS: HEPARIN 5000 UNITS SC ×3 (08:08→23:50)
[2025-08-13] MEDS: TOPROL XL 12.5 MG PO (08:08)
--- NOTE | 2025-08-13 08:18 | PTCARENOTE ---
Per primary team resident, patient patient's CT upgraded to urgent given his positive blood cx and c/f osteo with his unstageable sacral ulcers & L hip pain. Patient NPO. Patient educated on CT and necessity to maintain NPO.
[2025-08-13 08:37] LABS: Hematocrit 39.4 % (39.0-52.0); Hemoglobin 13.6 g/dL (13.0-18.0); Mean Corp Hgb Conc. 34.5 g/dL (33.0-37.0); Mean Corpuscular Volume 89.7 fL (80.0-94.0); Nucleated Red Blood Cells % 0 % (-); Platelet Count 178 10^3/uL (130-400); Red Cell Dist. Width 14.1 % (11.5-14.5)
[2025-08-13 09:28] LABS: ALT (SGPT) 45 U/L (0-50); AST (SGOT) 45 U/L (17-59); Albumin 2.3 g/dl (3.5-5.0); Alkaline Phosphatase 56 U/L (38-126); Blood Urea Nitrogen 35 mg/dl (9-20); Calcium 7.9 mg/dl (8.4-10.2); Carbon Dioxide 26 mmol/L (22-30); Chloride 107 mmol/L (98-107); Estimated Creatinine Clearance 96 ml/min; Glucose 96 mg/dl (70-99); Potassium 3.8 mmol/L (3.5-5.1); Sodium 133 mmol/L (135-145); Total Protein 4.7 g/dl (6.3-8.2); eGFR > 60.00
[2025-08-13] MEDS: NSS 1000 IV ×2 (09:44→21:07)
[2025-08-13] MEDS: VANCOCIN 540 MG IV (09:44)
[2025-08-13] MEDS: SANTYL OINTMENT 1 APPLIC TOPICAL (09:44)
--- NOTE | 2025-08-13 10:18 | CON.ID ---
Consultation
-
Date/Time Consultation Requested: August 13, 2025 0814
Date/Time Consultation Performed: August 13, 2025 1020
Requesting Provider: Dr. Lacy Quick
Performing Provider: Dr. Gillian Kwok
Reason for Consultation: Bacteremia
Chief Complaint / Past History
Chief Complaint
Left hip pain, weakness, fall
History of Present Illness
History obtained from the patient as well as from his at bedside. He is a 75-year-old male with history of hypertension, asthma, nephrolithiasis, left hip replacement at age 20 with subsequent revisions x 3 who presented to the ER on July
due to several day history of poor p.o. intake, lethargy, malaise, weakness. He then fell. He was not able to get up. He was crawling on the floor. His came home and found him on the floor. He was sent to the ER. In the ER temperature
101.6. White count of 14.9. He was started on ceftriaxone for suspected UTI. Urine culture negative. Admission blood cultures 4 bottles with Streptococcus species. Antibiotics changed to Zosyn and vancomycin. CT of the abdomen pelvis with IV
contrast shows the chronic large mass/fluid in the left obturator region associated with deficiency along the cautious pelvic margin contiguous with the acetabular component of the prosthesis, there is new suspected fluid collection in the left
iliacus muscle superior to a screw which extends through the left iliac wing. Patient reports in June 2025 he started having worsening left hip pain. His Ortho placed him on prednisone suspecting bursitis. Two weeks later, he was hospitalized
07/16 - 07/18 for gastritis thought to be related to prednisone and NSAID. He states he fell on to his left hip/buttocks before last hospitalization. Since then he has been having worsening left hip pain. Over the recent past few days, he c/o
feeling lethargic, poor appetite, and weak. He had difficulty bearing weight due to left hip pain and sustained a fall. He now complains of new left groin pain. He denies fever or chills at home. + nausea without vomiting. No diarrhea. No MENDOSA. No
cough/SOB.
Past History
Additional Past Medical History:
HTN
Asthma
Dyslipidemia
BPH
Nephrolithiasis hx right lithotripsy
Retroperitoneal and pelvic lipomatosis
Ventral hernia
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
Cholecystectomy
Allergy History:
No Known Allergies Allergy (Verified 07/15/25 19:51)
Medications Reviewed: Yes
Current Antibiotics:
s/p cefepime x 08/11
s/p CTX x 08/12
Vancomycin (d1)
Zosyn (d2)
Social History
Tobacco: Non-Smoker
Alcohol: None
Drug: None
Personal:
Living: With Family
Family History
Family History: Not Pertinent
Review of Systems
Review of Systems
General: Change in Appetite
HEENT: Negative Headache or Pharyngitis
Cardiovascular: Negative Chest Pain or Dyspnea
Respiratory: Negative Dyspnea or Cough
Gasteroenterology: Nausea; Negative Vomiting or Diarrhea
Genital / Urological: Negative Dysuria or Flank Pain
Endocrine: Weakness and Fatigue
Musculoskeletal: Arthralgias (left hip)
All systems: All other systems were reviewed and were negative
Vital Signs
Temp Pulse Resp BP Pulse Ox
97.6 F 75 16 152/78 97
08/13/25 07:35 08/13/25 08:08 08/13/25 07:42 08/13/25 08:08 08/13/25 07:42
Selected Entries
08/11/25
11:53
Temp 101.6 F H
Physical Exam
Physical Exam
Constitutional: Non-toxic
Head: Other (No frontal or maxillary sinus tenderness)
Eyes: No Conjunctival Hemorrhage and Sclera Anicteric
Cardiovascular: Regular Rate and S1/S2
Pulmonary: Clear
Gastrointestinal: Soft, Non Tender, Non Distended and Normal Bowel Sounds
Genito-Urinary: Negative CVA Tenderness
Musculoskeletal: Other (+ left inguinal tenderness. Left hip ecchymotic, ROM limited due to pain. )
Wound: Other (Multiple scattered abrasions.)
Neurological: AO x 3
Lab / Diagnostic Study Results
08/13/25 07:50
08/13/25 07:50
Abs Immat Gran (auto) 0.3 10^3/uL (0-0.05) H 08/13/25 07:50
Absolute Neuts (auto) 10.1 10^3/uL (1.4-6.5) H 08/13/25 07:50
Absolute Lymphs (auto) 0.5 10^3/uL (1.2-3.4) L 08/13/25 07:50
Absolute Monos (auto) 0.6 10^3/uL (0.1-0.6) 08/13/25 07:50
Absolute Basos (auto) 0.0 10^3/uL (0-0.2) 08/13/25 07:50
Immature Gran % 2.4 % (0-0.5) H 08/13/25 07:50
Neutrophils % 87.7 % (42.2-75.2) H 08/13/25 07:50
Lymphocytes % 4.3 % (20.5-51.1) L 08/13/25 07:50
Monocytes % 5.2 % (1.7-9.3) 08/13/25 07:50
Eosinophils % 0.1 % (0-6) 08/13/25 07:50
Basophils % 0.3 % (0-2) 08/13/25 07:50
Lactic Acid 1.7 mmol/L (0.7-2.0) 08/11/25 22:45
Ur Squamous Epith Cells 3-5 /LPF (Few) 08/11/25 12:14
Microbiology Results
Micro:
08/11/25 12:14 Blood Culture - Preliminary
Blood/Venous Streptococcus species
Gram Stain - Preliminary
08/11/25 12:14 Blood Culture - Preliminary
Blood/Venous Positive culture in progress
Gram Stain - Preliminary
08/12/25 16:33 Respiratory Virus Culture - Pending
Nasalpharynx
08/12/25 16:19 MRSA Screen - Pending
Nose
08/11/25 12:14 Urine Culture - Final
Urine NO GROWTH
08/11/25 CXR: No acute cardiopulmonary abnormality. Trace bibasilar opacities favored to represent atelectasis.
08/13/25 CT a/p: Postsurgical change of the left hip. Stable hardware. Stable large low-density fluid collection in the left pelvis probable a postoperative seroma, lymphocele or chronic effusion. Associated stable bony loss of the left pelvic wall;
Infected fluid and osteomyelitis not excluded. New small probable fluid collection within the left iliacus muscle with surrounding inflammation possibly second seroma, lymphocele or effusion. Again infection cannot be excluded.
Assessment / Plan
# Streptococcus species bacteremia 4 out of 4 bottles
# Fever
# Leukocytosis
# hx L THR x 4 with acute left hip pain
- Left hip and groin pain: occult fracture vs left hip PJI
- CT a/p new fluid collection above left hip screw with inflammation of iliacus muscle - hematoma vs infection
- Recommend MRI pelvis/left hip wo and w contrast to better evaluate for hip effusion, abscess, fracture, etc.
- Repeat blood cultures.
- Await speciation of Streptococcus.
- DC Zosyn and Vancomycin.
- Resume ceftriaxone 2g IV q24.
# Conditions MEDIATOR
HTN
Asthma
Dyslipidemia
BPH
Nephrolithiasis hx right lithotripsy
Retroperitoneal and pelvic lipomatosis
Ventral hernia
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
Cholecystectomy
[2025-08-13 10:30] VITALS: BP 119/84; BP 134/81; BP 138/74; PULSE 113; PULSE 74; PULSE 90
--- NOTE | 2025-08-13 12:42 | CON.GS ---
Medical History
-
Chief Complaint: Multiple falls and chronic wounds
History of Present Illness:
Patient is a 75 yo M with a PMH of GERD, HTN, COPD, nephrolithiasis, BPH, s/p laparoscopic cholecystectomy, s/p hip replacement, and s/p varicose vein surgery was admitted to on 08/11/2025 with weakness and failure to thrive. Noted to have
multiple chronic wounds of various stages across his body prompting general surgery evaluation. No specific pain or discomfort at these sites. No drainage or worsening redness. Note significant drainage. No fevers.
Past Medical History
Past Medical History: COPD, GERD, HTN and Other (Nephrolithiasis, BPH)
Past Surgical History: Cholecystectomy, Orthopedic (Hip surgery times), Urological (Cystoscopy and lithotripsy) and Other (Varicose vein)
Social History
Tobacco: Non-Smoker
Alcohol: None
Drug: None
Personal:
Living: With Family
Family History
Family History: Reviewed & Not Pertinent
Allergies / Home Medications
Allergy/AdvReac Type Severity Reaction Status Date / Time
No Known Allergies Allergy Verified 07/15/25 19:51
�Medication �Instructions �Recorded �Confirmed �Type
albuterol sulfate 90 mcg/actuation 2 puff inhalation R Q4HPRN PRN 06/16/12 08/11/25 History
aerosol inhaler asthma
simvastatin 40 mg tablet 40 mg PO QPM High Cholesterol 06/16/12 08/11/25 History
tamsulosin 0.4 mg capsule (Flomax) 0.4 mg PO DAILY Urinary Issue 06/16/12 08/11/25 History
fluticasone furoate 200 1 inh inhalation R DAILY 06/19/23 08/11/25 History
mcg-vilanterol 25 mcg/dose Lung/Breathing Issues
inhalation powder (Breo Ellipta)
metoprolol succinate 25 mg 12.5 mg PO DAILY Blood Pressure 06/19/23 08/11/25 History
tablet,extended release 24 hr
(Toprol XL)
solifenacin 10 mg tablet (Vesicare) 10 mg PO DAILY Urinary Issue 06/19/23 08/11/25 History
Medical Marijuana 1 puff inhalation DAILYPRN PRN 07/16/25 08/11/25 History
anxiety
tramadol 50 mg tablet 50 mg PO DAILYPRN PRN moderate 07/16/25 08/11/25 History
pains
pantoprazole 40 mg tablet,delayed 40 mg PO DAILY #30 tabs 07/18/25 08/11/25 Rx
release (Protonix)
polyethylene glycol 3350 17 gram 17 g PO DAILY PRN Constipation #14 07/18/25 08/11/25 Rx
oral powder packet (Miralax) ea
sucralfate 1 gram tablet 1 g PO ACHS #60 tabs 07/18/25 08/11/25 Rx
Review of Systems
-
A 10 point review of systems was completed, and was negative except as per HPI.
Physical Exam
Vital Signs
Temp Pulse Resp BP Pulse Ox
97.6 F 75 16 152/78 97
08/13/25 07:35 08/13/25 08:08 08/13/25 07:42 08/13/25 08:08 08/13/25 07:42
08/12/25 08/13/25 08/14/25
06:59 06:59 06:59
Actual Weight 82.214 kg
Body Mass Index (BMI) 26.0
Lab Results
08/13/25 07:50
08/13/25 07:50
WBC 11.5 10^3/uL (4.8-10.8) H 08/13/25 07:50
Hgb 13.6 g/dL (13.0-18.0) 08/13/25 07:50
Hct 39.4 % (39.0-52.0) 08/13/25 07:50
Plt Count 178 10^3/uL (130-400) 08/13/25 07:50
Abs Immat Gran (auto) 0.3 10^3/uL (0-0.05) H 08/13/25 07:50
Neutrophils % 87.7 % (42.2-75.2) H 08/13/25 07:50
Physical Exam
General: No Apparent Distress
HEENT: Normocephalic, Anicteric and Other (Well-healing abrasion over forehead, no erythema or drainage)
Respiratory: Non Labored Respirations
Cardiac: Regular Rhythm
GI: Soft, Non Tender and Non Distended
Skin: Warm, Dry and Other (Multiple abrasions of various agents size on the bilateral elbows and knees as well as left buttock and coccygeal region (see wound care note and pictures for details and sizing), no significant erythema or drainage, mild
superficial skin necrosis overlying coccygeal area, no palpable fluctuance)
Data Reviewed
-
CT Scan: Image Personally Visualized and interpreted and Report Reviewed by me
Labs: Labs Reviewed by me
Old Records: Reviewed
Assessment / Plan
-
Patient is a 75 yo M p/w weakness and failure to thrive at home, noted to have multiple wounds at various locations and at various stages of healing secondary to falls.
All wounds were evaluated. Most worrisome area is the coccygeal region with some superficial necrosis. No evidence of infection or deeper necrosis necessitating surgical debridement or drainage at this time. Recommend continued local wound care.
Diligent offloading and decreasing of pressure overlying the coccygeal area. All questions answered. Follow-up as an outpatient with the wound care center. Please call with any questions or concerns.
-- No indication or plan for surgery at this time
-- Continue with local wound care
-- Call with questions or concerns
[2025-08-13] MEDS: ROCEPHIN 2000 MG IV (13:05)
[2025-08-13] MEDS: STERILE WATER FOR INJECTION 20 ML IV (13:05)
--- NOTE | 2025-08-13 13:14 | PN.CDI ---
CDI
- -
CDI:
Physician Documentation Request
Admit Date: 08/11/25 15:09
Dear Doctor,
Please review the following and provide your response in the progress notes.
Clinical Indicators:
The diagnosis of Sepsis was documented on 08/11/25, but is not consistently noted in subsequent documentation.
Pt admitted for Fever, RUDOLPH,
08/11 H&P: ' Acute sepsis: With leukocytosis, mentation change, acute kidney injury, fevers temperature was 101,...'
Selected Entries
08/11/25
11:45 08/11/25
11:53 08/11/25
13:00
Temp 101.6 F H
Pulse 124 110
Resp Rate 27
Laboratory Tests
08/11/25 08/11/25 08/12/25
12:14 12:55 07:26
WBC 14.9 H 12.7 H
Lactic Acid 3.1 H
Sepsis
Systemic manifestations of infection, with 2 or more SIRS criteria which include:
- Fever >100.9 degrees F or hypothermia < 96.8 degrees F
- Leukocytosis - WBC > 12,000 or leukopenia - WBC < 4,000 or > 10% bands
- Tachycardia > 90 beats per minute
- Tachypnea - RR > 20 breaths per minute or PaCO2 , 32mmHg
Source: Merck Manual 2013
Please clarify the following:
____ - Sepsis was present on admission and is still being monitored, evaluated or treated
____ - Sepsis was ruled out
____ - Other
Use of terms such as suspected, likely, concern for, or probable (associated with a specific diagnosis that is being evaluated, monitored, or treated as if it exists) are acceptable and can be coded in the inpatient setting, when documented at the
time of discharge.
Thank you,
Gela Ulrich RN, BSN
CDI Specialist
[place] [facility]
Please use your independent medical judgment in providing your response.
--- NOTE | 2025-08-13 13:27 | PTCARENOTE ---
14 FR Arriaza placed for retention. Orthos completed--patient positive as evidenced by 20 point drop in systolic BP and HR elevation. Wound care completed. Heel boots in place. Q 2 hour turns. to be updated by primary team yet was at the bedside
while ID and surgery spoke with patient.
--- NOTE | 2025-08-13 13:38 | PN.CDI ---
CDI
- -
CDI:
Physician Documentation Request
Admit Date: 08/11/25 15:09
Dear Doctor,
Please review the following and provide your response in the progress notes.
Clinical Indicators:
Pt admitted for RUDOLPH, rhabdomyolysis, and bacteremia.
08/13 Progress Note: '#Elevated troponin. Overall downtrending from first lab draw here. Suspect nonischemic myocardial insult due to RUDOLPH and troponin retention.'
08/13 Progress Note: ' Trop elevated to 0.103 at time of presentation. Trending down from infection-induced demand ischemia from admission Jun 2025. Likely 2/2 to prior elevation rather than new type I myocardial ischemia.
Laboratory Tests
08/11/25 08/11/25 08/11/25
12:14 18:35 22:44
Troponin I 0.103 H* 0.095 H* 0.077 H*
Due to potential conflicting documentation, could you clarify in the progress notes, the appropriate diagnosis, if significant, that supports the above abnormalities and additional evaluation, monitoring and/or treatment rendered:
Non-ischemic myocardial injury
Demand ischemia
Other
Use of terms such as suspected, likely, concern for, or probable (associated with a specific diagnosis that is being evaluated, monitored, or treated as if it exists) are acceptable and can be coded in the inpatient setting, when documented at the
time of discharge.
Thank you,
Gela Ulrich RN, BSN
CDI Specialist
Lynn Text
Please use your independent medical judgment in providing your response.
--- NOTE | 2025-08-13 15:09 | PTCARENOTE ---
Family updated by Dr. Quick, at the bedside.
--- NOTE | 2025-08-13 15:21 | CM ---
CM reviewed chart, [facility] able to offer patient a bed, update to patient and bedside.
CM later received call from [facility], unable to accept patient due to medical marijuana use. Referral received by [facility], awaiting confirmation on ability to accept patient. CM will continue to follow for all discharge planning needs.
Plan; Awaiting confirmation from [facility] on ability to accept.
[2025-08-13 15:25] VITALS: BP 122/72
[2025-08-13] MEDS: MORPHINE SULFATE 1 MG IV (15:45)
[2025-08-13 16:04] VITALS: BP 122/72
[2025-08-13] MEDS: CARAFATE PO (16:25)
[2025-08-13] MEDS: LIPITOR 20 MG PO (17:00)
[2025-08-13 23:34] VITALS: BP 141/73; BP 147/76; PULSE 81; PULSE 84
--- NOTE | 2025-08-14 03:45 | DOWNTIME ---
There was a [employer] Downtime on 08/14/2025 from 0100 to 08/14/2025 at 0215. Downtime documentation of patient's care, including medication administrations, has been reconciled in the electronic record per guidelines. Refer to the
patient's paper chart under the miscellaneous tab to see printed paper medication records and downtime forms.
[2025-08-14] MEDS: TYLENOL 650 MG PO ×4 (05:29→23:30)
[2025-08-14 07:00] VITALS: BP 134/64; BP 135/68; PULSE 81; PULSE 84
[2025-08-14] MEDS: SYMBICORT 160/4.5 MCG INHALER 2 PUFF INH ×2 (07:29→19:36)
[2025-08-14 07:37] LABS: Hematocrit 37.9 % (39.0-52.0); Hemoglobin 12.5 g/dL (13.0-18.0); Mean Corp Hgb Conc. 33.0 g/dL (33.0-37.0); Mean Corpuscular Volume 91.1 fL (80.0-94.0); Platelet Count 196 10^3/uL (130-400); Red Cell Dist. Width 14.4 % (11.5-14.5)
[2025-08-14 07:43] LABS: ALT (SGPT) 40 U/L (0-50); AST (SGOT) 33 U/L (17-59); Albumin 2.0 g/dl (3.5-5.0); Alkaline Phosphatase 58 U/L (38-126); Blood Urea Nitrogen 25 mg/dl (9-20); Calcium 8.0 mg/dl (8.4-10.2); Carbon Dioxide 27 mmol/L (22-30); Chloride 107 mmol/L (98-107); Estimated Creatinine Clearance 96 ml/min; Glucose 78 mg/dl (70-99); Potassium 3.9 mmol/L (3.5-5.1); Sodium 133 mmol/L (135-145); Total Protein 4.3 g/dl (6.3-8.2); eGFR > 60.00
--- NOTE | 2025-08-14 07:46 | W.PN.HOSP.TC ---
Today's Communication/Plan
-
- MRI pelvis w/ and w/o contrast today
- Consult ortho vs. IR pending MRI results
- Continue ceftriaxone (08/13- ; s/p ceftriaxone 08/11-08/12, s/p zosyn 08/12-; s/p vanc 08/13-)
- Follow blood cx for bacteria susceptibilities
- Pending repeat blood cx
- MRSA pending
- ID following, appreciate recs
- Continue wound care for decubitous ulcers
- Pain mgmt: morphine 1mg q4hr PRN for breakthrough pain; increase home standing tramadol to bid from daily; schedule standing tylenol
Assessment / Plan
Assessment / Plan
Mike Jean Baptiste is a 75yo M with a pmh notable for HTN, HLD, arthritis, L THR w revisions (~35 yrs ago) nephrolithiasis, BPH, & recent admission for acute gastritis (d/c 07/18/25; NSAID>tramadol) who p/w subacute generalized weakness, poor appetite,
& recurrent falls, found to have bacteremia & unstageable decubitus ulcers w CT scan suggesting new fluid collection at L iliacus & L pelvis adjacent to prosthetic hip.
#L hip pain
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
#GPC bacteremia
On presentation: leukocytosis WBC 14.9; mentation change; fever of 101.6. Workup for common infectious sources (UTI, PNA, GI) negative. Pt endorsing severe L groin pain 08/12 when working with PT. Pt has not been mobile at home. Blood cx (08/12): gram
positive cocci in aerobic & anaerobic bottles x2; + strep species. CT a/p (08/13): with L pelvic inflammation, fluid collection in L pelvis, L iliacus. Patient with prosthetic L hip (placed by [facility] ortho, s/p revisions, ~30 yrs ago). C/f PJI given
L hip pain, fluid collection, bacteremia, & inability to stand - pending MRI. 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
Today: WBC (14.9>12.7>11.5>12.3). Temperature 98.2, pt has remained afebrile since admission.
- MRI pelvis w/ and w/o contrast
- Consult ortho vs. IR pending MRI results
- Continue ceftriaxone (08/13- ; s/p ceftriaxone 08/11-08/12, s/p zosyn 08/12-; s/p vanc 08/13-)
- Follow blood cx for bacteria susceptibilities
- Pending repeat blood cx
- MRSA pending
- URI viral panel pending
- ID following, appreciate recs
- Pain mgmt: morphine 1mg q4hr PRN for breakthrough pain; increase home standing tramadol to bid from daily; schedule standing tylenol
#Extensive pressure ulcers, unstageable
Per wound care 08/12, patient with bilateral unstageable/necrotic elbow and knee pressure injuries, L buttocks, and sacral DTI (photos in chart). Gen surg consulted 08/13 - no need for debridement, appears to be healing appropriately. Likely not
source of L hip infection from SSTI. However, suspect contributed to patient's pain/weakness/inability to stand.
- Continue wound care
#Generalized weakness
#Lightheadedness & recurrent falls
Likely 2/2 poor PO intake (per family, had not eaten for past 4 days prior to admission) in s/o infection & pain. CT head (08/11) without ICH s/p falls. Orthostatics (just supine & sitting) demonstrated diastolic BP drop. 08/12 - unable to obtain
standing orthostatics b/c patient unable to stand 2/2 pain & weakness.
- Compression stockings
- PT/OT following
#Urinary retention
Pt not urinating b/c cannot stand. Denies inability to urinate. Just pain with standing/unable to stand, and states he cannot urinate while lying down. Has been getting intermittent straight cath since admission 4x.
- Arriaza for time being for retention given straight cath >3x
#RUDOLPH, resolved
#Elevated CK, resolving
Pt w evidence of dehydration, orthostatics. Had been lying on the floor for some time; had not eaten for 4 days at time of presentation before brought in by nephew. CK elevated (4172) w rhabdo contribution from lying on floor. RUDOLPH 2/2 prerenal & CK
injury.
Today, Cr 1.7>1.0>0.7 s/p fluids. CK: 4172>1444.
- Can stop IVF today
#HTN
Pt with hx of HTN. BP has fluctuated, to peaks of 170s and valleys 120s. Most often 140-150s.
- Continuing home metoprolol
- Continue to monitor
#Elevated troponin, resolved
Trop elevated to 0.103 at time of presentation. Trending down from infection-induced demand ischemia from admission Jun 2025. Likely 2/2 to prior elevation rather than new type I myocardial ischemia.
Trop: 0.103>0.095>0.077
- NTD
#Chronic
- HTN - metoprolol succinate 12.5mg daily
- HLD - lipitor 20mg daily
- BPH - tolterodine 4mg daily; tamsulosin 0.4mg daily
- Asthma - symbicort inhaler; albuterol PRN
- Anxiety - ntd
- Arthritis - acetaminophen prn; home tramadol
- GERD - pantoprazole 40mg daily
#Global
- DVT ppx: heparin
- Diet: regular
- Code: DNR/DNI
- Dispo: lives at home with ; PT/OT eval for discharge, potentially SNF; pending resolution of current infection
Anticipated Discharge: > 48 hours
Subjective/Interval History
-
Date of Service: August 14, 2025
Pt in better spirits this am. States that he was able to sleep last night w the additional pain meds added. This am, says that pain is about stable from what it was yesterday. Says his appetite has improved since admission. Still having some
stinging/raw lip pain with foods like applejuice; advised to stick to blander foods & use vaseline. Has been drinking milk & having grapes - encouraged to try more solid foods. Denies any fever/chills.
Objective Data
-
Labs:
Laboratory Results
08/14/25
06:29
WBC 12.3 H
Hgb 12.5 L
Hct 37.9 L
Plt Count 196
Sodium 133 L
Potassium 3.9
Chloride 107
Carbon Dioxide 27
BUN 25 H
Creatinine 0.7
Glucose 78
Calcium 8.0 L
Total Bilirubin 1.0
AST 33
ALT 40
Alkaline Phosphatase 58
Vital Signs:
Vital Signs
Temp Pulse Resp BP Pulse Ox
98.2 F 85 16 141/73 96
08/13/25 23:34 08/14/25 07:31 08/14/25 07:31 08/13/25 23:34 08/14/25 07:31
I&O
08/13/25 08/14/25 08/15/25
06:59 06:59 06:59
Intake Total 660 / 660 3365 / 3365 590 / 590
Output Total 1185 / 1185 600 / 600
Balance -525 / -525 2765 / 2765 590 / 590
Review of Systems
-
History Source: Patient
EENT: Reports Other (stinging lips )
Musculoskeletal: Reports Other (Pain in L hip)
Physical Exam
-
General: Well Developed and Well Nourished
HEENT: Normocephalic, Atraumatic and Anicteric
Respiratory: Non Labored Respirations
Cardiac: Regular Rhythm
GI: Soft, Nontender and Nondistended
Skin: Warm, Dry, Decubitus Ulcers (unstageable extensive sacral, buttocks pressure ulcers (see photos in chart) ) and Other (abrasions/scabs on forehead; bruises on L hip )
Neuro: Awake and Alert
Data Reviewed
-
Total Time Spent with Patient (in minutes): 10
Critical Care Time (in minutes): 35
CT Scan: Report Reviewed by me
Labs: Labs Reviewed by me
[2025-08-14 08:09] LABS: Nucleated Red Blood Cells % 0 % (-)
[2025-08-14] MEDS: TOPROL XL 12.5 MG PO (09:50)
[2025-08-14] MEDS: DETROL LA 4 MG PO (09:50)
[2025-08-14] MEDS: ULTRAM 50 MG PO ×2 (09:50→20:21)
[2025-08-14] MEDS: PROTONIX 40 MG PO (09:50)
[2025-08-14] MEDS: CARAFATE 1 GRAM PO ×3 (09:51→23:30)
[2025-08-14] MEDS: FLOMAX 0.4 MG PO (09:51)
[2025-08-14] MEDS: HEPARIN 5000 UNITS SC ×3 (09:51→23:30)
--- NOTE | 2025-08-14 10:09 | W.PN.ID1 ---
Date of Service
Date of Service: August 14, 2025
Today's Communication
Continue ceftriaxone. Await MRI.
Assessment / Plan
# Streptococcus species bacteremia 4 out of 4 bottles
# Fever - resolved
# Leukocytosis
# hx L THR x 4 with acute left hip pain
# Multiple skin abrasions/tears due to fall
- Left hip and groin pain: occult fracture vs left hip PJI
- CT a/p new fluid collection above left hip screw with inflammation of iliacus muscle - hematoma vs infection
- Await MRI pelvis/left hip wo and w contrast to better evaluate for hip effusion, abscess, fracture, etc.
- Repeat blood cultures pending.
- Await speciation of Streptococcus.
- Continue ceftriaxone 2g IV q24.
- Trend wbc
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
HTN
Asthma
Dyslipidemia
BPH
Nephrolithiasis hx right lithotripsy
Retroperitoneal and pelvic lipomatosis
Ventral hernia
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
Cholecystectomy
Chief Complaint
-: Bacteremia
Subjective / Review of Systems
Left hip hurts. Icing helps.
Vital Signs / Physical Exam
Vital Signs
Vital Signs
Temp Pulse Resp BP Pulse Ox
98.5 F 85 16 135/68 96
08/14/25 07:00 08/14/25 09:50 08/14/25 07:31 08/14/25 09:50 08/14/25 07:31
Physical Exam
Constitutional: Non-toxic
Eyes: No Conjunctival Hemorrhage and Sclera Anicteric
Cardiovascular: Regular Rate
Pulmonary: Clear
Gastrointestinal: Soft, Non Tender, Non Distended and Normal Bowel Sounds
Musculoskeletal: Other (Left groin tender. Left hip ecchymotic, limited ROM)
Wound: Other (Wound phtotos reviewed. Multiple skin abrasions/skin tears)
Neurological: AO x 3
Objective Data
Lab Data
Lab Results
08/14/25 06:29
08/14/25 06:29
Estimated Creat Clear 96 ml/min 08/14/25 06:29
Lactic Acid 1.7 mmol/L (0.7-2.0) 08/11/25 22:45
Total Bilirubin 1.0 mg/dl (0.2-1.3) 08/14/25 06:
AST 33 U/L (17-59) 08/14/25 06:
ALT 40 U/L (0-50) 08/14/25 06:
Alkaline Phosphatase 58 U/L (38-126) 08/14/25 06:29
Most recent labs reviewed.
Micro Results:
08/11/25 12:14 Blood Culture - Preliminary
Blood/Venous Positive culture in progress
Gram Stain - Preliminary
08/11/25 12:14 Blood Culture - Preliminary
Blood/Venous Streptococcus species
Gram Stain - Preliminary
08/12/25 16:19 MRSA Screen - Final
Nose No Methicillin Resistant Staphylococcus aureus isolated.
08/13/25 12:04 Blood Culture - Pending
Blood/Venous
08/13/25 11:02 Blood Culture - Pending
Blood/Venous
08/12/25 16:33 Respiratory Virus Culture - Pending
Nasalpharynx
08/11/25 12:14 Urine Culture - Final
Urine NO GROWTH
08/11/25 CXR: No acute cardiopulmonary abnormality. Trace bibasilar opacities favored to represent atelectasis.
08/13/25 CT a/p: Postsurgical change of the left hip. Stable hardware. Stable large low-density fluid collection in the left pelvis probable a postoperative seroma, lymphocele or chronic effusion. Associated stable bony loss of the left pelvic wall;
Infected fluid and osteomyelitis not excluded. New small probable fluid collection within the left iliacus muscle with surrounding inflammation possibly second seroma, lymphocele or effusion. Again infection cannot be excluded.
--- NOTE | 2025-08-14 11:13 | CM ---
CM reviewed chart, per [facility] and [facility], unable to accept patient due to hx Medical Marijuana, patient and updated. agreeable to additional referrals placed- aware [facility] able to accept and agreeable. Patient remains
on IV antibiotics, for MRI today. Patient will require ambulance transport when stable. CM will continue to follow for all discharge planning needs.
Plan; [facility] SN[facility] when stable
[2025-08-14] MEDS: ROCEPHIN 2000 MG IV (11:58)
[2025-08-14] MEDS: STERILE WATER FOR INJECTION 20 ML IV (11:59)
[2025-08-14] MEDS: ZOFRAN 4 MG IV (12:39)
[2025-08-14] MEDS: CARAFATE PO (12:39)
[2025-08-14 15:00] VITALS: BP 127/72
[2025-08-14] MEDS: MORPHINE SULFATE 1 MG IV (16:13)
[2025-08-14] MEDS: SANTYL OINTMENT 1 APPLIC TOPICAL (16:31)
[2025-08-14] MEDS: LIPITOR 20 MG PO (17:48)
[2025-08-14 23:25] VITALS: BP 157/76; BP 159/73; PULSE 78; PULSE 80
[2025-08-15] VITALS (15 sets, daily range): BP systolic 83–155; BP diastolic 61–87; PULSE 80–98
[2025-08-15] MEDS: TYLENOL 650 MG PO ×3 (05:09→17:16)
[2025-08-15] MEDS: SYMBICORT 160/4.5 MCG INHALER 2 PUFF INH ×2 (07:43→19:41)
--- NOTE | 2025-08-15 07:43 | W.PN.HOSP.TC ---
Today's Communication/Plan
-
- L hip aspiration w IR today
- Continue ceftriaxone
- Continue wound care for sacral ulcers
Assessment / Plan
Assessment / Plan
Mike Jean Baptiste is a 75yo M with a pmh notable for HTN, HLD, arthritis, L THR w revisions (~35 yrs ago) nephrolithiasis, BPH, & recent admission for acute gastritis (d/c 07/18/25; NSAID>tramadol) who p/w subacute generalized weakness, poor appetite,
& recurrent falls, found to have bacteremia & unstageable decubitus ulcers w CT scan suggesting new fluid collection at L iliacus & L pelvis adjacent to prosthetic hip, awaiting aspiration w IR.
#L hip pain
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
#GPC bacteremia
On presentation: leukocytosis WBC 14.9; mentation change; fever of 101.6. Workup for common infectious sources (UTI, PNA, GI) negative. Pt endorsing severe L groin pain 08/12 when working with PT. Pt has not been mobile at home. Blood cx (08/12): gram
positive cocci in aerobic & anaerobic bottles x2; + strep species. CT a/p (08/13): with L pelvic inflammation, fluid collection in L pelvis, L iliacus. Patient with prosthetic L hip (placed by [facility], s/p revisions, ~30 yrs ago). Repeat blood
cx s/p abx without growth in 24hr. MRSA swab negative. MRI (08/14): small nonenhancing fluid signal intensity in L iliac fossa; soft tissue edema within iliacus muscle & adjacent to cortical margin of iliac fossa; could represent sterile inflammatory
rxn to surgical screw vs. early/developing abscess.
C/f PJI given L hip pain, fluid collection, bacteremia, & inability to stand - pending MRI. 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
Today: WBC (14.9>12.7>11.5>12.3). Temperature 98.2, pt has remained afebrile since admission.
- Aspiration of L hip fluid w IR today
- Continue ceftriaxone (08/13- ; s/p ceftriaxone 08/11-08/12, s/p zosyn 08/12-; s/p vanc 08/13-)
- Follow blood cx for bacteria susceptibilities
- ID following, appreciate recs
- Pain mgmt: dilaudid 0.5-1mg q3h PRN; hold home tramadol; schedule standing tylenol
#Extensive pressure ulcers, unstageable
Per wound care 08/12, patient with bilateral unstageable/necrotic elbow and knee pressure injuries, L buttocks, and sacral DTI (photos in chart). Gen surg consulted 08/13 - no need for debridement, appears to be healing appropriately. Likely not
source of L hip infection from SSTI. However, suspect contributed to patient's pain/weakness/inability to stand.
- Continue wound care
#Generalized weakness
#Lightheadedness & recurrent falls
Likely 2/2 poor PO intake (per family, had not eaten for past 4 days prior to admission) in s/o infection & pain. CT head (08/11) without ICH s/p falls. Orthostatics (just supine & sitting) demonstrated diastolic BP drop. 08/12 - unable to obtain
standing orthostatics b/c patient unable to stand 2/2 pain & weakness.
- Compression stockings
- Encourage PO intake
- PT/OT following
#Urinary retention
Pt not urinating b/c cannot stand. Denies inability to urinate. Just pain with standing/unable to stand, and states he cannot urinate while lying down. Has been getting intermittent straight cath since admission 4x.
- Arriaza for time being for retention given straight cath >3x
#RUDOLPH, resolved
#Elevated CK, resolved
Pt w evidence of dehydration, orthostatics. Had been lying on the floor for some time; had not eaten for 4 days at time of presentation before brought in by nephew. CK elevated (4172) w rhabdo contribution from lying on floor. RUDOLPH 2/2 prerenal & CK
injury.
Today, Cr 1.7>1.0>0.7 s/p fluids. CK: 4172>1444.
- Continue to monitor
#Elevated troponin, resolved
Trop elevated to 0.103 at time of presentation. Trending down from infection-induced demand ischemia from admission Jun 2025. Likely 2/2 to prior elevation rather than new type I myocardial ischemia.
Trop: 0.103>0.095>0.077
- NTD
#Chronic
- HTN - metoprolol succinate 12.5mg daily
- HLD - lipitor 20mg daily
- BPH - tolterodine 4mg daily; tamsulosin 0.4mg daily
- Asthma - symbicort inhaler; albuterol PRN
- Anxiety - ntd
- Arthritis - acetaminophen prn; home tramadol
- GERD - pantoprazole 40mg daily
#Global
- DVT ppx: heparin
- Diet: regular
- Code: DNR/DNI
- Dispo: lives at home with ; PT/OT eval for discharge, potentially SNF; pending w/u & resolution of current infection
Anticipated Discharge: > 48 hours
Subjective/Interval History
-
Date of Service: August 15, 2025
Patient complaining of pain this am. Says he was not able to sleep well overnight. Says appetite improving. Patient's at bedside, said patient in worse mood/more irritable than usual.
Objective Data
-
Labs:
Laboratory Results
08/15/25
06:00
WBC Pending
Hgb Pending
Hct Pending
Plt Count Pending
Sodium Pending
Potassium Pending
Chloride Pending
Carbon Dioxide Pending
BUN Pending
Creatinine Pending
Glucose Pending
Calcium Pending
Total Bilirubin Pending
AST Pending
ALT Pending
Alkaline Phosphatase Pending
Vital Signs:
Vital Signs
Temp Pulse Resp BP Pulse Ox
97.7 F 84 18 127/72 96
08/14/25 23:28 08/14/25 19:36 08/14/25 23:28 08/14/25 15:00 08/14/25 23:28
I&O
08/14/25 08/15/25 08/16/25
06:59 06:59 06:59
Intake Total 3365 / 3365 1790 / 1790
Output Total 600 / 600 1200 / 1200
Balance 2765 / 2765 590 / 590
Review of Systems
-
History Source: Patient
EENT: Reports Other (stinging lips )
Musculoskeletal: Reports Other (Pain in L hip)
Physical Exam
-
General: Well Developed and Well Nourished
HEENT: Normocephalic, Atraumatic and Anicteric
Respiratory: Non Labored Respirations
Cardiac: Regular Rhythm
GI: Soft, Nontender and Nondistended
Skin: Warm, Dry, Decubitus Ulcers (unstageable extensive sacral, buttocks pressure ulcers (see photos in chart) ) and Other (abrasions/scabs on forehead; bruises on L hip )
Neuro: Awake and Alert
Data Reviewed
-
Total Time Spent with Patient (in minutes): 15
Critical Care Time (in minutes): 35
Labs: Labs Reviewed by me
[2025-08-15] MEDS: ULTRAM 50 MG PO (08:49)
[2025-08-15] MEDS: TOPROL XL 12.5 MG PO (08:50)
[2025-08-15] MEDS: FLOMAX 0.4 MG PO (08:50)
[2025-08-15] MEDS: CARAFATE PO (08:50)
[2025-08-15] MEDS: PROTONIX 40 MG PO (08:50)
[2025-08-15] MEDS: HEPARIN 5000 UNITS SC ×2 (08:50→17:15)
[2025-08-15] MEDS: DETROL LA 4 MG PO (08:50)
[2025-08-15 09:51] LABS: Hematocrit 37.6 % (39.0-52.0); Hemoglobin 12.7 g/dL (13.0-18.0); Mean Corp Hgb Conc. 33.8 g/dL (33.0-37.0); Mean Corpuscular Volume 90.4 fL (80.0-94.0); Platelet Count 227 10^3/uL (130-400); Red Cell Dist. Width 14.5 % (11.5-14.5)
[2025-08-15] MEDS: DILAUDID 1 MG IV ×2 (10:04→21:05)
--- NOTE | 2025-08-15 10:22 | W.PN.ID1 ---
Date of Service
Date of Service: August 15, 2025
Today's Communication
TTE
Follow pelvic fluid collection cx.
Continue ceftriaxone.
Assessment / Plan
# Streptococcus species bacteremia 4 out of 4 bottles
# Fever - resolved
# Leukocytosis stable
# hx L THR x 4 with acute left hip pain and groin pain
# Multiple skin abrasions/tears due to fall
- MRI pelvis/left hip wo and w contrast new small fluid collections in iliac fossa largest, 3 x 1.5cm, adjacent to L hip prosthesis screw, soft tissue enhancement of left iliacus muscle
- Agree with IR aspiration of new fluid collection to rule out/in hardware infection. Cx pending
- Ordered TTE
- Repeat bcx's neg to date.
- Await speciation of Streptococcus.
- Continue ceftriaxone 2g IV q24 for now.
- Trend wbc
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
HTN
Asthma
Dyslipidemia
BPH
Nephrolithiasis hx right lithotripsy
Retroperitoneal and pelvic lipomatosis
Ventral hernia
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
Cholecystectomy
Chief Complaint
-: Bacteremia
Subjective / Review of Systems
at bedside.
Continues to have left hip/groin pain.
Vital Signs / Physical Exam
Vital Signs
Vital Signs
Temp Pulse Resp BP Pulse Ox
97.8 F 80 17 130/65 97
08/15/25 07:48 08/15/25 08:50 08/15/25 07:48 08/15/25 08:50 08/15/25 07:48
Physical Exam
Constitutional: Chronically Ill
Eyes: No Conjunctival Hemorrhage and Sclera Anicteric
Cardiovascular: Regular Rate
Pulmonary: Clear
Gastrointestinal: Soft, Non Tender, Non Distended and Normal Bowel Sounds
Musculoskeletal: Other (Left groin tender. Left hip ecchymotic, limited ROM)
Wound: Other (Wound phtotos reviewed. Multiple skin abrasions/skin tears)
Neurological: AO x 3
Objective Data
Lab Data
Lab Results
08/15/25 09:10
Estimated Creat Clear 96 ml/min 08/14/25 06:29
Lactic Acid 1.7 mmol/L (0.7-2.0) 08/11/25 22:45
Total Bilirubin 1.0 mg/dl (0.2-1.3) 08/14/25 06:29
AST 33 U/L (17-59) 08/14/25 06:29
ALT 40 U/L (0-50) 08/14/25 06:29
Alkaline Phosphatase 58 U/L (38-126) 08/14/25 06:29
Most recent labs reviewed.
Micro Results:
08/12/25 16:33 Respiratory Virus Culture - Preliminary
Nasalpharynx
08/11/25 12:14 Blood Culture - Preliminary
Blood/Venous Streptococcus species
Gram Stain - Preliminary
08/13/25 12:04 Blood Culture - Preliminary
Blood/Venous No Growth in 24 hours- Final report to follow
08/13/25 11:02 Blood Culture - Preliminary
Blood/Venous No Growth in 24 hours- Final report to follow
08/11/25 12:14 Blood Culture - Preliminary
Blood/Venous Positive culture in progress
Gram Stain - Preliminary
08/12/25 16:19 MRSA Screen - Final
Nose No Methicillin Resistant Staphylococcus aureus isolated.
08/11/25 12:14 Urine Culture - Final
Urine NO GROWTH
08/14/25 Pelvis MRI: Small nonenhancing fluid signal intensity structures in the left iliac fossa, the largest component measuring approximately 3 x 1.5 cm. No apparent defined peripheral thickened capsule or enhancement is appreciated. Chronic
severe atrophy and fatty replacement of the left psoas muscle and iliacus muscle. Mild diffuse nonfocal soft tissue enhancement/edema within the iliacus muscle and adjacent to the cortical margin of the iliac fossa. Although the exact etiology is
uncertain, this could represent sterile inflammatory reaction related to the tip of the surgical screw which extends beyond the cortical margin of the left ilium. Cannot entirely exclude the possibility of early or developing abscess. No evidence of
osteomyelitis. Clinical correlation necessary. Ultimately, aspiration may be needed. 2) left lateral pelvic sidewall nonenhancing mass with paramagnetic properties medial to and contiguous with the left acetabulum. This may be seen with hemorrhagic
or highly proteinaceous debris, though overall most suspicious for pseudotumor related to adverse local soft tissue reaction, which is typically seen with [id number] prostheses.
08/11/25 CXR: No acute cardiopulmonary abnormality. Trace bibasilar opacities favored to represent atelectasis.
08/13/25 CT a/p: Postsurgical change of the left hip. Stable hardware. Stable large low-density fluid collection in the left pelvis probable a postoperative seroma, lymphocele or chronic effusion. Associated stable bony loss of the left pelvic wall;
Infected fluid and osteomyelitis not excluded. New small probable fluid collection within the left iliacus muscle with surrounding inflammation possibly second seroma, lymphocele or effusion. Again infection cannot be excluded.
[2025-08-15 11:05] LABS: ALT (SGPT) 41 U/L (0-50); AST (SGOT) 34 U/L (17-59); Albumin 2.0 g/dl (3.5-5.0); Alkaline Phosphatase 68 U/L (38-126); Blood Urea Nitrogen 19 mg/dl (9-20); Calcium 8.0 mg/dl (8.4-10.2); Carbon Dioxide 26 mmol/L (22-30); Chloride 103 mmol/L (98-107); Estimated Creatinine Clearance 112 ml/min; Glucose 84 mg/dl (70-99); Potassium 3.9 mmol/L (3.5-5.1); Sodium 129 mmol/L (135-145); Total Protein 4.6 g/dl (6.3-8.2); eGFR > 60.00
[2025-08-15 11:28] LABS: Nucleated Red Blood Cells % 0 % (-)
[2025-08-15] MEDS: STERILE WATER FOR INJECTION 20 ML IV (13:00)
[2025-08-15] MEDS: CARAFATE 1 GRAM PO ×3 (13:00→22:24)
[2025-08-15] MEDS: ROCEPHIN 2000 MG IV (13:01)
[2025-08-15] MEDS: SANTYL OINTMENT 1 APPLIC TOPICAL (13:25)
--- NOTE | 2025-08-15 13:29 | WOUNDNOTE ---
WO RN note: Patient's elbow and knee wounds slightly improved with less necrotic tissue. Sacral DTI evolving to purple black ecchymotic suspect will evolve to necrotic tissue. L buttocks/posterior hip wound appears pink, buttocks purple area
smaller than Tuesday. R inner buttocks blister same. Skin on heels intact. Current wound care appropriate. Dressings changed. Patient turned to R semi side lying position with help from AVINASH Marie. TruVue lite boots reapplied. Waffle air overlay in
place. Appetite fair. Patient had IR procedure today. Assisted AVINASH Marie with changing LLQ puncture dressing (Bandaid had bloody drainage, no active bleeding). Will follow as needed.
--- NOTE | 2025-08-15 13:30 | WOUNDNOTE ---
WO RN note: Patient's elbow wounds less necrotic. Knee wounds slightly with slightly less necrotic tissue. Sacral DTI evolving to purple black ecchymotic/necrotic tissue suspect will evolve to more necrotic tissue. L buttocks/posterior hip wounds
and R inner buttocks blister about the same. Skin on heels intact. Current wound care appropriate. Dressings changed. Patient turned to R semi side lying position with help from AVINASH Marie. TruVue lite boots reapplied. Waffle air overlay in place.
Appetite fair. Patient had IR procedure today. Assisted AVINASH Marie with changing LLQ puncture dressing (Bandaid had bloody drainage, no active bleeding). Will follow as needed.
[2025-08-15 13:48] LABS: Body Fluid Second Tech ASW
[2025-08-15] MEDS: LIPITOR 20 MG PO (17:15)
[2025-08-15] MEDS: DESENEX/MITRAZOL/ZEASORB 1 APPLIC TOPICAL (21:06)
[2025-08-16] MEDS: TYLENOL 650 MG PO ×4 (00:04→17:07)
[2025-08-16] MEDS: HEPARIN 5000 UNITS SC ×2 (00:04→10:15)
[2025-08-16] MEDS: DILAUDID 0.5 MG IV (02:45)
[2025-08-16] MEDS: DILAUDID 1 MG IV ×5 (03:48→20:34)
[2025-08-16 07:00] VITALS: BP 134/61
[2025-08-16] MEDS: SYMBICORT 160/4.5 MCG INHALER 2 PUFF INH ×2 (07:12→20:03)
--- NOTE | 2025-08-16 07:37 | W.PN.HOSP.TC ---
Today's Communication/Plan
-
- Continue ceftriaxone (08/13- ; s/p ceftriaxone 08/11-08/12, s/p zosyn 08/12-; s/p vanc 08/13-); appreciate ID recs on abx duration & PO transition
- Consider ortho consult to eval for persistent L hip pain, mechanical Q
- ID following, appreciate recs
- Continue to monitor fluid cx
- Pain mgmt: dilaudid 0.5-1mg q3h PRN; hold home tramadol; schedule standing tylenol
- Plan to trial simmons removal today and with patient self-catheterization
- Continue wound care
Assessment / Plan
Assessment / Plan
Mike Jean Baptiste is a 75yo M with a pmh notable for HTN, HLD, arthritis, L THR w revisions (~35 yrs ago) nephrolithiasis, BPH, & recent admission for acute gastritis (d/c 07/18/25; NSAID>tramadol) who p/w subacute generalized weakness, poor appetite,
& recurrent falls, found to have bacteremia & unstageable decubitus ulcers w CT scan suggesting new fluid collection at L iliacus & L pelvis adjacent to prosthetic hip, w aspiration c/f infectious fluid, pending cx.
#L hip pain
#Suspected L iliacus abscess
#GPC bacteremia
On presentation: leukocytosis WBC 14.9; mentation change; fever of 101.6. Workup for common infectious sources (UTI, PNA, GI) negative. Pt endorsing severe L groin pain 08/12 when working with PT. Pt has not been mobile at home. Blood cx (08/12): gram
positive cocci in aerobic & anaerobic bottles x2; + strep species (susceptible to ceftriaxone). CT a/p (08/13): with L pelvic inflammation, fluid collection in L pelvis, L iliacus. Patient with prosthetic L hip (placed by [facility] ortho, s/p
revisions, ~30 yrs ago). Repeat blood cx s/p abx without growth. MRSA swab negative. MRI (08/14): small nonenhancing fluid signal intensity in L iliac fossa; soft tissue edema within iliacus muscle & adjacent to cortical margin of iliac fossa; could
represent sterile inflammatory rxn to surgical screw vs. early/developing abscess. IR drainage of L iliac fossa/iliacus fluid (08/15): WBC 62366, PMN 86.5%. Prelim fluid cx without growth 24hr.
C/f L iliacus abscess given L hip pain, fluid collection w PMNs & WBC near 50K, bacteremia, & inability to stand. 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
Today: WBC (14.9>12.7>11.5>12.3>9.5). AVSS.
- Continue ceftriaxone (08/13- ; s/p ceftriaxone 08/11-08/12, s/p zosyn 08/12-; s/p vanc 08/13-); appreciate ID recs on abx duration & PO transition
- Consider ortho consult to eval for persistent L hip pain, mechanical Q
- ID following, appreciate recs
- Continue to monitor fluid cx
- Pain mgmt: dilaudid 0.5-1mg q3h PRN; hold home tramadol; schedule standing tylenol
#Extensive pressure ulcers, unstageable
Per wound care 08/12, patient with bilateral unstageable/necrotic elbow and knee pressure injuries, L buttocks, and sacral DTI (photos in chart). Gen surg consulted 08/13 - no need for debridement, appears to be healing appropriately. Likely not
source of L hip infection from SSTI. However, suspect contributed to patient's pain/weakness/inability to stand.
- Continue wound care
#Hyponatremia
Na 129 on 08/15. Likely 2/2 poor PO solute intake coupled with PO fluid intake (pt says appetite mainly for milk, juice vs. solid foods).
Today, Na 131.
- 48oz fluid restriction
- Continue to monitor
- If downtrends, consider urine na, osm, cr
#Generalized weakness
#Lightheadedness & recurrent falls
Likely 2/2 poor PO intake (per family, had not eaten for past 4 days prior to admission) in s/o infection & pain. CT head (08/11) without ICH s/p falls. Orthostatics (just supine & sitting) demonstrated diastolic BP drop. 08/12 - unable to obtain
standing orthostatics b/c patient unable to stand 2/2 pain & weakness.
- Compression stockings
- Encourage PO intake
- PT/OT following
#Constipation
In s/o poor PO intake for first days of admission, immobility in med 2/2 pain, & opioid analgesics.
- Schedule miralax 08/16-08/18
- PRN docusate/senna daily
#Urinary retention
Pt not urinating b/c cannot stand. Denies inability to urinate. Just pain with standing/unable to stand, and states he cannot urinate while lying down. Had been getting intermittent straight cath since admission 4x until simmons cath 08/14-.
- Plan to trial simmons removal today and with patient self-catheterization
- PT/OT to continue to work w patient to encourage standing OOB
#RUDOLPH, resolved
#Elevated CK, resolved
Pt w evidence of dehydration, orthostatics. Had been lying on the floor for some time; had not eaten for 4 days at time of presentation before brought in by nephew. CK elevated (4172) w rhabdo contribution from lying on floor. RUDOLPH 2/2 prerenal & CK
injury.
Today, Cr 1.7>1.0>0.7 s/p fluids. CK: 4172>1444.
- Continue to monitor
#Chronic
- HTN - metoprolol succinate 12.5mg daily
- HLD - lipitor 20mg daily
- BPH - tolterodine 4mg daily (holding); tamsulosin 0.4mg daily
- Asthma - symbicort inhaler; albuterol PRN
- Anxiety - ntd
- Arthritis - acetaminophen prn; home tramadol
- GERD - pantoprazole 40mg daily
#Global
- DVT ppx: lovenox
- Diet: regular
- Code: DNR/DNI
- Dispo: lives at home with ; PT/OT eval for discharge, potentially SNF; pending resolution of current infection
Anticipated Discharge: 24 - 48 hours
Subjective/Interval History
-
Date of Service: August 16, 2025
Patient awake, about to eat breakfast. States that he is willing to try more solid foods today. Says that his pain is better with the pain medication regimen. He was able to sleep last night. When discussing possibility of working with PT today
to attempt to stand up out of bed, says that he would like to wait another day and does not feel ready. Simmons catheter in place. Says that he has not had a bowel movement since admission to the hospital.
Objective Data
-
Labs:
Laboratory Results
08/16/25
07:28
WBC Pending
Hgb Pending
Hct Pending
Plt Count Pending
Sodium Pending
Potassium Pending
Chloride Pending
Carbon Dioxide Pending
BUN Pending
Creatinine Pending
Glucose Pending
Calcium Pending
Total Bilirubin Pending
AST Pending
ALT Pending
Alkaline Phosphatase Pending
Vital Signs:
Vital Signs
Temp Pulse Resp BP Pulse Ox
97.4 F 72 14 126/61 94
08/15/25 23:15 08/16/25 07:14 08/16/25 07:14 08/15/25 23:15 08/15/25 23:15
I&O
08/15/25 08/16/25 08/17/25
06:59 06:59 06:59
Intake Total 1790 / 1790 600 / 600
Output Total 1200 / 1200 800 / 800
Balance 590 / 590 -200 / -200
Review of Systems
-
History Source: Patient
Abdomen/GI: Reports Constipated
Physical Exam
-
General: Well Nourished and Conversant
HEENT: Normocephalic, Atraumatic and Anicteric
Respiratory: Non Labored Respirations
Cardiac: Regular Rhythm
GI: Nondistended
Genito-urinary: Simmons
Musculoskeletal: No Edema
Skin: Warm, Dry and Decubitus Ulcers
Neuro: Awake, Alert and Oriented
Psych: Calm
Data Reviewed
-
Total Time Spent with Patient (in minutes): 10
Critical Care Time (in minutes): 30
Diagnostic Radiology: Report Reviewed by me
Labs: Labs Reviewed by me
[2025-08-16 08:37] LABS: Hematocrit 37.3 % (39.0-52.0); Hemoglobin 12.3 g/dL (13.0-18.0); Mean Corp Hgb Conc. 33.0 g/dL (33.0-37.0); Mean Corpuscular Volume 91.2 fL (80.0-94.0); Platelet Count 236 10^3/uL (130-400); Red Cell Dist. Width 14.6 % (11.5-14.5)
[2025-08-16 09:06] LABS: ALT (SGPT) 39 U/L (0-50); AST (SGOT) 36 U/L (17-59); Albumin 1.9 g/dl (3.5-5.0); Alkaline Phosphatase 90 U/L (38-126); Blood Urea Nitrogen 17 mg/dl (9-20); Calcium 7.7 mg/dl (8.4-10.2); Carbon Dioxide 31 mmol/L (22-30); Chloride 102 mmol/L (98-107); Estimated Creatinine Clearance 96 ml/min; Glucose 103 mg/dl (70-99); Potassium 4.5 mmol/L (3.5-5.1); Sodium 131 mmol/L (135-145); Total Protein 4.3 g/dl (6.3-8.2); eGFR > 60.00
[2025-08-16 09:47] VITALS: BP 122/66; PULSE 91; O2SAT 95
[2025-08-16 10:07] LABS: Absolute Neutrophils -Man Diff 6.7 10^3/uL (1.4-6.5)
[2025-08-16 10:08] LABS: Normal RBC Morphology Yes; Platelets Checked Yes; Total Cells Counted 100
[2025-08-16] MEDS: TOPROL XL 12.5 MG PO (10:13)
[2025-08-16] MEDS: PROTONIX 40 MG PO (10:13)
[2025-08-16] MEDS: MIRALAX 17 GRAMS PO (10:13)
[2025-08-16] MEDS: FLOMAX 0.4 MG PO (10:15)
[2025-08-16] MEDS: CARAFATE 1 GRAM PO ×4 (10:21→22:08)
[2025-08-16] MEDS: DESENEX/MITRAZOL/ZEASORB 1 APPLIC TOPICAL ×2 (10:24→20:44)
[2025-08-16] MEDS: FLUSH (NSS) 2 FLUSH IV (10:43)
[2025-08-16] MEDS: DETROL LA 4 MG PO (10:44)
--- NOTE | 2025-08-16 11:49 | CM ---
CM reviewed chart, patient seen bedside.
Discussed plan for SNF when stable for discharge. [facility], [facility] able to offer a bed pending day of discharge/bed availability.
Continue wound care, remains on IV antibiotics. CM will continue to follow for all discharge planning needs.
Plan; SNF when stable, no auth required
[2025-08-16] MEDS: STERILE WATER FOR INJECTION 20 ML IV (13:28)
[2025-08-16] MEDS: ROCEPHIN 2000 MG IV (13:35)
[2025-08-16 15:00] VITALS: BP 123/64
--- NOTE | 2025-08-16 15:02 | W.PN.ID1 ---
Date of Service
Date of Service: August 16, 2025
Today's Communication
Ortho consult.
See below.
Assessment / Plan
# Streptococcus anginosus bacteremia 4 out of 4 bottles (drawn at the same time)
# Fever - resolved
# Leukocytosis -resolved
# hx L THR x 4 with acute left hip pain and groin pain
# Multiple skin abrasions/tears due to fall
- Repeat bcx's neg to date.
-TTE: no gross vegetation
- MRI pelvis/left hip wo and w contrast new small fluid collections in iliac fossa largest, 3 x 1.5cm, adjacent to L hip prosthesis screw, soft tissue enhancement of left iliacus muscle
- 08/15 IR aspiration of hemorrhagic iliacus fluid collection
Fluid 42K wbc, 86% wbc.
Fluid cx neg x24h (pt on day 5 abx)
- Unclear if Strep bacteremia is from skin source or from possible left hip PJI.
- ? L hip groin pain due to iliacus muscle sprain/strain?
- Recommend Ortho consult to weigh in.
- Continue ceftriaxone 2g IV q24 for now.
- If final fluid cx neg and no concern for septic joint, will transition to po abx.
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
HTN
Asthma
Dyslipidemia
BPH
Nephrolithiasis hx right lithotripsy
Retroperitoneal and pelvic lipomatosis
Ventral hernia
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
Cholecystectomy
Chief Complaint
-: Bacteremia
Subjective / Review of Systems
Left hip pain. Unable to bear weight.
Vital Signs / Physical Exam
Vital Signs
Vital Signs
Temp Pulse Resp BP Pulse Ox
98.3 F 72 14 134/61 94
08/16/25 07:00 08/16/25 07:14 08/16/25 07:14 08/16/25 07:00 08/16/25 07:00
Physical Exam
Constitutional: Chronically Ill
Eyes: No Conjunctival Hemorrhage and Sclera Anicteric
Cardiovascular: Regular Rate
Pulmonary: Clear
Gastrointestinal: Soft, Non Tender, Non Distended and Normal Bowel Sounds
Musculoskeletal: Other (Left groin tender. Left hip ecchymotic, limited ROM)
Wound: Other (Wound phtotos reviewed. Multiple skin abrasions/skin tears)
Neurological: AO x 3
Objective Data
Lab Data
Lab Results
08/16/25 07:28
08/16/25 07:28
ESR Cancelled 08/16/25 12:47
Estimated Creat Clear 96 ml/min 08/16/25 07:28
Lactic Acid 1.7 mmol/L (0.7-2.0) 08/11/25 22:45
Total Bilirubin 0.5 mg/dl (0.2-1.3) 08/16/25 07:28
AST 36 U/L (17-59) 08/16/25 07:28
ALT 39 U/L (0-50) 08/16/25 07:28
Alkaline Phosphatase 90 U/L (38-126) 08/16/25 07:28
Most recent labs reviewed.
Micro Results:
08/13/25 12:04 Blood Culture - Preliminary
Blood/Venous No Growth in 72 hours- Final report to follow
08/13/25 11:02 Blood Culture - Preliminary
Blood/Venous No Growth in 72 hours- Final report to follow
08/15/25 11:20 Body Fluid Culture - Preliminary
Fluid No Growth After 18-24 Hours
Gram Stain - Preliminary
08/12/25 16:33 Respiratory Virus Culture - Preliminary
Nasalpharynx
08/11/25 12:14 Blood Culture - Final
Blood/Venous Streptococcus anginosus
Gram Stain - Final
08/11/25 12:14 Blood Culture - Final
Blood/Venous Streptococcus anginosus
Gram Stain - Final
08/12/25 16:19 MRSA Screen - Final
Nose No Methicillin Resistant Staphylococcus aureus isolated.
08/11/25 12:14 Urine Culture - Final
Urine NO GROWTH
08/14/25 Pelvis MRI: Small nonenhancing fluid signal intensity structures in the left iliac fossa, the largest component measuring approximately 3 x 1.5 cm. No apparent defined peripheral thickened capsule or enhancement is appreciated. Chronic
severe atrophy and fatty replacement of the left psoas muscle and iliacus muscle. Mild diffuse nonfocal soft tissue enhancement/edema within the iliacus muscle and adjacent to the cortical margin of the iliac fossa. Although the exact etiology is
uncertain, this could represent sterile inflammatory reaction related to the tip of the surgical screw which extends beyond the cortical margin of the left ilium. Cannot entirely exclude the possibility of early or developing abscess. No evidence of
osteomyelitis. Clinical correlation necessary. Ultimately, aspiration may be needed. 2) left lateral pelvic sidewall nonenhancing mass with paramagnetic properties medial to and contiguous with the left acetabulum. This may be seen with hemorrhagic
or highly proteinaceous debris, though overall most suspicious for pseudotumor related to adverse local soft tissue reaction, which is typically seen with [id number] prostheses.
08/11/25 CXR: No acute cardiopulmonary abnormality. Trace bibasilar opacities favored to represent atelectasis.
08/13/25 CT a/p: Postsurgical change of the left hip. Stable hardware. Stable large low-density fluid collection in the left pelvis probable a postoperative seroma, lymphocele or chronic effusion. Associated stable bony loss of the left pelvic wall;
Infected fluid and osteomyelitis not excluded. New small probable fluid collection within the left iliacus muscle with surrounding inflammation possibly second seroma, lymphocele or effusion. Again infection cannot be excluded.
Care Review
Plan reviewed with: Physician (Drs. Heaton and Ynes)
[2025-08-16] MEDS: SANTYL OINTMENT 1 APPLIC TOPICAL (16:17)
[2025-08-16] MEDS: LIPITOR 20 MG PO (17:07)
[2025-08-16] MEDS: LOVENOX 40 MG SC (17:08)
[2025-08-16 17:31] LABS: C-Reactive Protein 166.10 mg/L (0.0-10.00)
[2025-08-16] MEDS: FLUSH (NSS) 1 FLUSH IV (20:36)
[2025-08-16] MEDS: SENOKOT-S 1 TABLET PO (20:36)
[2025-08-16 23:18] VITALS: BP 140/73
[2025-08-17] MEDS: TYLENOL 650 MG PO ×4 (00:40→17:35)
[2025-08-17] MEDS: DILAUDID 0.5 MG IV ×2 (00:41→04:46)
[2025-08-17 07:00] VITALS: BP 145/73
--- NOTE | 2025-08-17 07:37 | W.PN.HOSP.TC ---
Today's Communication/Plan
-
- Likely SNF Tuesday
- Convert analgesia & abx to PO
- Laxatives
- Attempt urine voiding standing
- PT/OT
- Pending ortho consult for pseudotumor L hip
Assessment / Plan
Assessment / Plan
Mike Jean Baptiste is a 75yo M with a pmh notable for HTN, HLD, arthritis, L THR w revisions (~35 yrs ago) nephrolithiasis, BPH, & recent admission for acute gastritis (d/c 07/18/25; NSAID>tramadol) who p/w subacute generalized weakness, poor appetite,
& recurrent falls, found to have bacteremia & unstageable decubitus ulcers w CT scan suggesting new fluid collection at L iliacus & L pelvis adjacent to prosthetic hip, w aspiration c/f infectious fluid, infection now resolving.
#Likely L iliacus abscess
#GPC bacteremia
On presentation: leukocytosis WBC 14.9; mentation change; fever of 101.6. Workup for common infectious sources (UTI, PNA, GI) negative. Pt endorsing severe L groin pain 08/12 when working with PT. Pt has not been mobile at home. Blood cx (08/12): gram
positive cocci in aerobic & anaerobic bottles x2; + strep species (susceptible to ceftriaxone). CT a/p (08/13): with L pelvic inflammation, fluid collection in L pelvis, L iliacus. Patient with prosthetic L hip (placed by [facility] ortho, s/p
revisions, ~30 yrs ago). Repeat blood cx s/p abx without growth. MRSA swab negative. MRI (08/14): small nonenhancing fluid signal intensity in L iliac fossa; soft tissue edema within iliacus muscle & adjacent to cortical margin of iliac fossa; could
represent sterile inflammatory rxn to surgical screw vs. early/developing abscess. IR drainage of L iliac fossa/iliacus fluid (08/15): WBC 36183, PMN 86.5%. Prelim fluid cx without growth. Per ortho, no c/f joint effusion/PJI.
C/f L iliacus abscess given L hip pain, fluid collection w PMNs & WBC near 50K, bacteremia, & inability to stand. 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
Today: WBC (14.9>>9.5>10.4). AVSS.
- Ceftriaxone (08/13- ; s/p ceftriaxone 08/11-08/12, s/p zosyn 08/12-; s/p vanc 08/13-) > transition to PO abx today, t/b with ID
- ID following, appreciate recs
- Pain mgmt: dilaudid 0.5-1mg q3h PRN; hold home tramadol; schedule standing tylenol > convert to PO analgesic regimen over weekend
#L hip pain
#L hip pseudotumor, suspected
Had L hip replacement with [facility] ~30yrs ago. Chronic L hip pain led to sacral ulcers & prior admission for acute gastritis 2/2 NSAID overuse (was then transitioned to tramadol). In Jun 2025 - saw ortho last month for L hip pain and was given
prednisone for presumed bursitis. Pt L hip pain not improving significantly s/p treatment of infection in L hip, requiring dilaudid. Given this, c/f additional underlying pathology in L hip; ortho consulted. MRI suggests c/f reactive pseudotumor in
L hip.
- Ortho consulted, appreciate recs
- Likely f/u outpatient procedure for removal of psuedotumor
#Extensive pressure ulcers, unstageable
Per wound care 08/12, patient with bilateral unstageable/necrotic elbow and knee pressure injuries, L buttocks, and sacral DTI (photos in chart). Gen surg consulted 08/13 - no need for debridement, appears to be healing appropriately. Likely not
source of L hip infection from SSTI. However, suspect contributed to patient's pain/weakness/inability to stand.
- Continue wound care
#Hyponatremia
Na 129 on 08/15. Likely 2/2 poor PO solute intake coupled with PO fluid intake (pt says appetite mainly for milk, juice vs. solid foods). Also likely component of SIADH 2/2 pain.
Today, Na: 129>131>129
- 48oz fluid restriction
- Check urine Na, osm, cr
- Continue to monitor
#Constipation
In s/o poor PO intake for first days of admission, immobility in med 2/2 pain, & opioid analgesics. No BM since admission as of 08/17 am.
- Schedule miralax 08/16-08/18
- Suppository today if no BM by afternoon
- PRN docusate/senna daily
#Urinary retention
Pt not urinating b/c cannot stand. Denies inability to urinate. Just pain with standing/unable to stand, and states he cannot urinate while lying down. Had been getting intermittent straight cath since admission 4x until simmons cath 08/14-.
- Straight cath
- Encourage self void
- PT/OT to continue to work w patient to encourage standing OOB
#Generalized weakness
#Lightheadedness & recurrent falls
Likely 2/2 poor PO intake (per family, had not eaten for past 4 days prior to admission) in s/o infection & pain. CT head (08/11) without ICH s/p falls. Orthostatics (just supine & sitting) demonstrated diastolic BP drop. 08/12 - unable to obtain
standing orthostatics b/c patient unable to stand 2/2 pain & weakness.
- Compression stockings
- Encourage PO intake
- PT/OT following
#RUDOLPH, resolved
#Elevated CK, resolved
Pt w evidence of dehydration, orthostatics. Had been lying on the floor for some time; had not eaten for 4 days at time of presentation before brought in by nephew. CK elevated (4172) w rhabdo contribution from lying on floor. RUDOLPH 2/2 prerenal & CK
injury.
Today, Cr 1.7>1.0>0.7 s/p fluids. CK: 4172>1444.
- Continue to monitor
#Chronic
- HTN - metoprolol succinate 12.5mg daily
- HLD - lipitor 20mg daily
- BPH - tolterodine 4mg daily (holding); tamsulosin 0.4mg daily
- Asthma - symbicort inhaler; albuterol PRN
- Anxiety - ntd
- Arthritis - acetaminophen prn; home tramadol
- GERD - pantoprazole 40mg daily
#Global
- DVT ppx: lovenox
- Diet: regular
- Code: DNR/DNI
- Dispo: lives at home with ; PT/OT recommends for SNF; likely after weekend
Anticipated Discharge: 24 - 48 hours
Subjective/Interval History
-
Date of Service: August 17, 2025
Pt states that pain is being controlled by dilaudid. Was able to sleep last night but not the whole night. Says he still has not had a BM. Still not able to pee. Appetite better, eating solid meals. Made aware of plans for ortho consult & SNF
placement; agrees. Seems down, frustrated.
Objective Data
-
Labs:
Laboratory Results
08/17/25
06:00
WBC Pending
Hgb Pending
Hct Pending
Plt Count Pending
Sodium Pending
Potassium Pending
Chloride Pending
Carbon Dioxide Pending
BUN Pending
Creatinine Pending
Glucose Pending
Calcium Pending
Total Bilirubin Pending
AST Pending
ALT Pending
Alkaline Phosphatase Pending
Vital Signs:
Vital Signs
Temp Pulse Resp BP Pulse Ox
97.8 F 85 18 140/73 96
08/16/25 23:18 08/16/25 23:18 08/16/25 23:18 08/16/25 23:18 08/16/25 23:18
I&O
08/16/25 08/17/25 08/18/25
06:59 06:59 06:59
Intake Total 600 / 600 1200 / 1200
Output Total 800 / 800 950 / 950
Balance -200 / -200 250 / 250
Review of Systems
-
History Source: Patient
Abdomen/GI: Reports Constipated
Genitourinary: Reports Other (retention )
Musculoskeletal: Reports Other (L hip pain )
Psych: Reports Depressed
Physical Exam
-
General: Well Developed, Well Nourished and Conversant
HEENT: Normocephalic, Atraumatic and Anicteric
Respiratory: Non Labored Respirations
Cardiac: Regular Rhythm
GI: Nondistended
Genito-urinary: Other (simmons out today)
Musculoskeletal: No Edema
Skin: Other (sacral ulcers, photos in chart )
Neuro: AO x 3
Psych: Calm and Depressed
Data Reviewed
-
Total Time Spent with Patient (in minutes): 15
Critical Care Time (in minutes): 35
Labs: Labs Reviewed by me
[2025-08-17] MEDS: FLOMAX 0.4 MG PO (08:08)
[2025-08-17] MEDS: CARAFATE 1 GRAM PO ×4 (08:08→20:56)
[2025-08-17] MEDS: SANTYL OINTMENT 1 APPLIC TOPICAL (08:09)
[2025-08-17] MEDS: MIRALAX 17 GRAMS PO (08:09)
[2025-08-17] MEDS: PROTONIX 40 MG PO (08:09)
[2025-08-17] MEDS: DESENEX/MITRAZOL/ZEASORB 1 APPLIC TOPICAL ×2 (08:10→20:55)
[2025-08-17] MEDS: DILAUDID 1 MG IV (08:10)
[2025-08-17] MEDS: SYMBICORT 160/4.5 MCG INHALER 2 PUFF INH ×2 (08:12→20:00)
[2025-08-17] MEDS: TOPROL XL 12.5 MG PO (08:13)
[2025-08-17 08:32] LABS: Hematocrit 36.1 % (39.0-52.0); Hemoglobin 12.7 g/dL (13.0-18.0); Mean Corp Hgb Conc. 35.2 g/dL (33.0-37.0); Mean Corpuscular Volume 90.3 fL (80.0-94.0); Platelet Count 256 10^3/uL (130-400); Red Cell Dist. Width 14.2 % (11.5-14.5)
[2025-08-17 08:46] LABS: ALT (SGPT) 38 U/L (0-50); AST (SGOT) 36 U/L (17-59); Albumin 2.0 g/dl (3.5-5.0); Alkaline Phosphatase 100 U/L (38-126); Blood Urea Nitrogen 15 mg/dl (9-20); Calcium 7.9 mg/dl (8.4-10.2); Carbon Dioxide 29 mmol/L (22-30); Chloride 101 mmol/L (98-107); Estimated Creatinine Clearance 112 ml/min; Glucose 101 mg/dl (70-99); Potassium 4.0 mmol/L (3.5-5.1); Sodium 129 mmol/L (135-145); Total Protein 4.6 g/dl (6.3-8.2); eGFR > 60.00
--- NOTE | 2025-08-17 11:20 | PTCARENOTE ---
Bladder scan for 177 ml. No straight cath intervention. Patient did void spontaneously, prior and urine sample was obtained.
[2025-08-17 11:26] LABS: Nucleated Red Blood Cells % 0 % (-)
--- NOTE | 2025-08-17 11:33 | CM ---
trailer park manager reviewed patient's chart and physician did reach out to welfare case worker stating that patient would be cleared for discharge on Tuesday, patient has been accepted at [facility], [facility] and [facility].
trailer park manager met with patient and spouse at bedside and they have selected [facility] as first choice, call placed to admissions at [facility] and they will have a bed for patient on Tuesday. No Auth required.
Plan skilled placement at [facility] on 08/19/25
[facility]
Report [phone]
Fax [phone]
[2025-08-17] MEDS: ROCEPHIN 2000 MG IV (12:13)
[2025-08-17] MEDS: STERILE WATER FOR INJECTION 20 ML IV (12:13)
[2025-08-17] MEDS: ROXICODONE 15 MG PO ×2 (12:29→18:32)
--- NOTE | 2025-08-17 12:37 | CON.ORTHO ---
Consultation
-
Date/Time Consultation Performed: 1215 PM 08/17/2025
Consultation - Orthopedics
History
HPI: 75-year-old male history of COPD, asthma, hypertension presented to the emergency department complaints of left hip and groin pain left leg pain malaise fatigue and ambulatory dysfunction. Ultimately was admitted to the medical service. He
underwent advanced imaging of the pelvis that revealed concern for pseudotumor formation as well as small fluid collection within the iliac us muscle/pelvis in the area of of acetabular screw. He underwent aspiration of this fluid collection by IR.
He was also found to be bacteremic/septic and has been on IV antibiotics per infectious disease. The patient has a history of multiple left total hip arthroplasties with most recent revision being performed approximately 35 years ago. This
afternoon he is accompanied by his at bedside. They report that he had a fall recently and has been progressively more dysfunctional from an ambulatory standpoint to the point where he really had been unable to walk. They report that he has
developed multiple sores over his body as a result of this. Of note they do report that he was recently seen last month on an outpatient basis and given Medrol Dosepak for presumed greater trochanteric bursitis.
Allergies / Home Medications
Past medical history: Hypertension, COPD, asthma
Past surgical history: Left total hip arthroplasty with multiple revisions most recently 35 years ago
Social history: Lives at home with family/, does not use ambulatory aids at baseline per family and patient
Family history: Not pertinent
Allergy/AdvReac Type Severity Reaction Status Date / Time
No Known Allergies Allergy Verified 07/15/25 19:51
�Medication �Instructions �Recorded
albuterol sulfate 90 mcg/actuation 2 puff inhalation R Q4HPRN PRN 06/16/12
aerosol inhaler asthma
simvastatin 40 mg tablet 40 mg PO QPM High Cholesterol 06/16/12
tamsulosin 0.4 mg capsule (Flomax) 0.4 mg PO DAILY Urinary Issue 06/16/12
fluticasone furoate 200 1 inh inhalation R DAILY 06/19/23
mcg-vilanterol 25 mcg/dose Lung/Breathing Issues
inhalation powder (Breo Ellipta)
metoprolol succinate 25 mg 12.5 mg PO DAILY Blood Pressure 06/19/23
tablet,extended release 24 hr
(Toprol XL)
solifenacin 10 mg tablet (Vesicare) 10 mg PO DAILY Urinary Issue 06/19/23
Medical Marijuana 1 puff inhalation DAILYPRN PRN 07/16/25
anxiety
tramadol 50 mg tablet 50 mg PO DAILYPRN PRN moderate 07/16/25
pains
pantoprazole 40 mg tablet,delayed 40 mg PO DAILY #30 tabs 07/18/25
release (Protonix)
polyethylene glycol 3350 17 gram 17 g PO DAILY PRN Constipation #14 07/18/25
oral powder packet (Miralax) ea
sucralfate 1 gram tablet 1 g PO ACHS #60 tabs 07/18/25
Vital Signs / Lab Results
Temp Pulse Resp BP Pulse Ox
97.8 F 88 16 147/73 96
08/17/25 07:00 08/17/25 08:14 08/17/25 08:14 08/17/25 08:13 08/17/25 08:14
08/17/25 07:41
08/17/25 07:41
10 point review systems reviewed and negative unless otherwise stated
General: Somewhat ill in appearance, appears fatigued
Musculoskeletal left lower extremity
There is moderate amount of ecchymotic staining noted over the lateral trochanteric flare
Patient has difficulty with active straight leg raise
He has significant pain with passive range of motion of the left leg and hip predominantly in his thigh region
Positive EHL, FHL, ankle dorsi and plantarflexion
Sensation grossly intact light touch nondisplaced distally
Brisk cap refill
Patient with multiple areas of ecchymotic seen throughout his body, there is a sacral decubitus wound that was visualized as well
Diagnostic studies
MRI of pelvis was reviewed by myself. There is evidence of nonenhancing mass adjacent to left hip arthroplasty concerning for pseudotumor. There is also rim-enhancing fluid collection adjacent to the tip of the acetabular screw inter table ilium
ESR and CRP both noted to be elevated
Fluid aspirated with 42K synovial white blood cell count
Assessment / Plan
75-year-old male history COPD asthma multiple revision left total hip arthroplasty most recently 35 years ago admitted found to have bacteremia as well as MRI evidence of abscess area of acetabular screw and concern for pseudotumor formation in
addition to multiple wounds including sacral decubitus wound. I did have a long discussion with patient is at bedside regarding diagnosis and treatment options. I also discussed at length with the primary team. Per primary team, IR was
unable to aspirate any fluid from the hip joint as there was no fluid identified on their imaging studies. There is some concern that cultures have remained negative since patient had been previously on antibiotic treatment. It does sound like the
patient was having some discomfort that was exacerbated more recently by fall. Certainly if they are able to get any fluid from the joint itself this would be helpful to determine whether or not patient does truly have a prosthetic joint infection.
I do think he would likely benefit from alpha defense and testing as well however my understanding is that this is not a test that is available at [facility]. Certainly some pain could be contributed to pseudotumor formation although this
is likely been present for quite some time. Although it does not definitively rule out a prosthetic joint infection, I think it is somewhat less likely given lack of fluid in the joint. Certainly the concern would be that the joint could be seeded
as there was fluid collection adjacent to the tip of the acetabular screw on the inner aspect of the ilium. Again if were unable to obtain fluid from the joint, I am not sure that we will be able to definitively rule in or rule out prosthetic joint
infection. If patient is nontoxic and not acutely ill, would recommend following up with his orthopedic surgeon of record for further workup and discussion regarding treatment options for pseudotumor as well as potentially performing an aspiration
with alpha defense and on an outpatient basis. This was explained in depth to both the primary team as well as the patient and family. Certainly if there is any questions please reach out. If further diagnostic workup does confirm prosthetic
joint infection, patient would require transfer to tertiary care center.
--- NOTE | 2025-08-17 13:11 | W.PN.ID1 ---
Date of Service
Date of Service: August 17, 2025
Today's Communication
Continue antibiotics
Assessment / Plan
# Streptococcus anginosus bacteremia 4 out of 4 bottles (drawn at the same time)
# Fever - resolved
# Leukocytosis -resolved
# hx L THR x 4 with acute left hip pain and groin pain
# Multiple skin abrasions/tears due to fall
- Repeat bcx's neg to date.
-TTE: no gross vegetation
- MRI pelvis/left hip wo and w contrast new small fluid collections in iliac fossa largest, 3 x 1.5cm, adjacent to L hip prosthesis screw, soft tissue enhancement of left iliacus muscle
- 08/15 IR aspiration of hemorrhagic iliacus fluid collection
Fluid 42K wbc, 86% wbc.
Fluid cx with strep spp.
- Unclear if Strep bacteremia is from skin source or from possible left hip PJI.
- ? L hip groin pain due to iliacus muscle sprain/strain?
- Continue ceftriaxone 2g IV q24 for now. Patient may ultimately require 6-week course of therapy. Unclear if bone screw may also be infected, which ultimately would either require long-term suppression or screw removal.
# Conditions [employer]
HTN
Asthma
Dyslipidemia
BPH
Nephrolithiasis hx right lithotripsy
Retroperitoneal and pelvic lipomatosis
Ventral hernia
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
Cholecystectomy
Chief Complaint
-: Bacteremia
Subjective / Review of Systems
Patient seen and examined. Notes ongoing pain in the left hip area.
Review of Systems: No Fever
Vital Signs / Physical Exam
Vital Signs
Vital Signs
Temp Pulse Resp BP Pulse Ox
97.8 F 88 16 147/73 96
08/17/25 07:00 08/17/25 08:14 08/17/25 08:14 08/17/25 08:13 08/17/25 08:14
Physical Exam
Constitutional: Chronically Ill
Eyes: No Conjunctival Hemorrhage and Sclera Anicteric
Cardiovascular: Regular Rate
Pulmonary: Clear
Gastrointestinal: Soft, Non Tender, Non Distended and Normal Bowel Sounds
Musculoskeletal: Other (Left groin tender. Left hip ecchymotic, limited ROM)
Wound: Other (Wound phtotos reviewed. Multiple skin abrasions/skin tears)
Neurological: AO x 3
Objective Data
Lab Data
Lab Results
08/17/25 07:41
08/17/25 07:41
ESR Cancelled 08/16/25 12:47
Estimated Creat Clear 112 ml/min 08/17/25 07:41
Lactic Acid 1.7 mmol/L (0.7-2.0) 08/11/25 22:45
Total Bilirubin 0.7 mg/dl (0.2-1.3) 08/17/25 07:41
AST 36 U/L (17-59) 08/17/25 07:41
ALT 38 U/L (0-50) 08/17/25 07:41
Alkaline Phosphatase 100 U/L (38-126) 08/17/25 07:41
C-Reactive Protein 166.10 mg/L (0.0-10.00) H 08/16/25 07:48
Most recent labs reviewed.
Micro Results:
08/13/25 12:04 Blood Culture - Preliminary
Blood/Venous No Growth in 4 days- Final report to follow
08/15/25 11:20 Body Fluid Culture - Preliminary
Fluid Streptococcus species
Gram Stain - Preliminary
08/13/25 11:02 Blood Culture - Preliminary
Blood/Venous No Growth in 4 days- Final report to follow
08/12/25 16:33 Respiratory Virus Culture - Preliminary
Nasalpharynx
08/11/25 12:14 Blood Culture - Final
Blood/Venous Streptococcus anginosus
Gram Stain - Final
08/11/25 12:14 Blood Culture - Final
Blood/Venous Streptococcus anginosus
Gram Stain - Final
08/12/25 16:19 MRSA Screen - Final
Nose No Methicillin Resistant Staphylococcus aureus isolated.
08/11/25 12:14 Urine Culture - Final
Urine NO GROWTH
08/14/25 Pelvis MRI: Small nonenhancing fluid signal intensity structures in the left iliac fossa, the largest component measuring approximately 3 x 1.5 cm. No apparent defined peripheral thickened capsule or enhancement is appreciated. Chronic
severe atrophy and fatty replacement of the left psoas muscle and iliacus muscle. Mild diffuse nonfocal soft tissue enhancement/edema within the iliacus muscle and adjacent to the cortical margin of the iliac fossa. Although the exact etiology is
uncertain, this could represent sterile inflammatory reaction related to the tip of the surgical screw which extends beyond the cortical margin of the left ilium. Cannot entirely exclude the possibility of early or developing abscess. No evidence of
osteomyelitis. Clinical correlation necessary. Ultimately, aspiration may be needed. 2) left lateral pelvic sidewall nonenhancing mass with paramagnetic properties medial to and contiguous with the left acetabulum. This may be seen with hemorrhagic
or highly proteinaceous debris, though overall most suspicious for pseudotumor related to adverse local soft tissue reaction, which is typically seen with [id number] prostheses.
08/11/25 CXR: No acute cardiopulmonary abnormality. Trace bibasilar opacities favored to represent atelectasis.
08/13/25 CT a/p: Postsurgical change of the left hip. Stable hardware. Stable large low-density fluid collection in the left pelvis probable a postoperative seroma, lymphocele or chronic effusion. Associated stable bony loss of the left pelvic wall;
Infected fluid and osteomyelitis not excluded. New small probable fluid collection within the left iliacus muscle with surrounding inflammation possibly second seroma, lymphocele or effusion. Again infection cannot be excluded.
[2025-08-17 15:00] VITALS: BP 125/68
[2025-08-17] MEDS: LOVENOX 40 MG SC (17:35)
[2025-08-17] MEDS: LIPITOR 20 MG PO (17:35)
[2025-08-17] MEDS: SENOKOT-S 1 TABLET PO (17:51)
--- NOTE | 2025-08-17 18:03 | PTCARENOTE ---
patient refused sacral/buttocks wound care due to level of pain. wound care performed by this RN on bilateral elbows, bilateral knees, nia area and heel foams changed.
[2025-08-17] MEDS: ZOFRAN 4 MG IV (23:20)
[2025-08-17] MEDS: FLUSH (NSS) 1 FLUSH IV (23:21)
[2025-08-17 23:26] VITALS: BP 137/79
[2025-08-18] MEDS: TYLENOL 650 MG PO ×5 (00:11→23:49)
[2025-08-18] MEDS: ROXICODONE 15 MG PO ×3 (00:12→15:10)
--- NOTE | 2025-08-18 00:30 | PTCARENOTE ---
Pt. c/o pain 07/07 in left hip, gave pain meds per mar, pt. refusing to turn in bed due to pain, staff of three people managed to turn pt. and change wound dressing on sacrum/buttock area, will continue to monitor pt. status.
[2025-08-18] MEDS: SYMBICORT 160/4.5 MCG INHALER 2 PUFF INH ×2 (07:48→19:47)
[2025-08-18 08:00] VITALS: BP 153/83
--- NOTE | 2025-08-18 08:00 | W.PN.HOSP.TC ---
Today's Communication/Plan
-
- Monitor stool
- Touch base with ID about PICC for abx course
- SNF ([facility]) on Tuesday
- Oxycodone for pain
- Continue PT/OT
Assessment / Plan
Assessment / Plan
Mike Jean Baptiste is a 75yo M with a pmh notable for HTN, HLD, arthritis, L THR w revisions (~35 yrs ago) nephrolithiasis, BPH, & recent admission for acute gastritis (d/c 07/18/25; NSAID>tramadol) who p/w subacute generalized weakness, poor appetite,
& recurrent falls, found to have bacteremia & unstageable decubitus ulcers w CT scan suggesting new fluid collection at L iliacus & L pelvis adjacent to prosthetic hip, w aspiration c/f infectious fluid, infection now resolving.
#Likely L iliacus abscess
#GPC bacteremia
On presentation: leukocytosis WBC 14.9; mentation change; fever of 101.6. Workup for common infectious sources (UTI, PNA, GI) negative. Pt endorsing severe L groin pain 08/12 when working with PT. Pt has not been mobile at home. Blood cx (08/12): gram
positive cocci in aerobic & anaerobic bottles x2; + strep species (susceptible to ceftriaxone). CT a/p (08/13): with L pelvic inflammation, fluid collection in L pelvis, L iliacus. Patient with prosthetic L hip (placed by [facility], s/p
revisions, ~30 yrs ago). Repeat blood cx s/p abx without growth. MRSA swab negative. MRI (08/14): small nonenhancing fluid signal intensity in L iliac fossa; soft tissue edema within iliacus muscle & adjacent to cortical margin of iliac fossa; could
represent sterile inflammatory rxn to surgical screw vs. early/developing abscess. IR drainage of L iliac fossa/iliacus fluid (08/15): WBC 91612, PMN 86.5%. Fluid cx with strep.
C/f L iliacus abscess given L hip pain, fluid collection w PMNs & WBC near 50K, bacteremia, & inability to stand. Suspect likely seeded from bacteremia that was precipitated by open wounds/vasculature, bacteria into bloodstream. Per ortho, no c/f
joint effusion/PJI. Per ID, c/f infection adjacent to screw. Insufficient fluid in joint to tap; require alpha-defensin to eval for infection in s/o abx & rule in PJI - not available at [facility]. Continue to monitor clinically.
Today: WBC (14.9>>9.5>10.4> 13.0). AVSS.
- Ceftriaxone IV (08/13- ; s/p ceftriaxone 08/11-08/12, s/p zosyn 08/12-; s/p vanc 08/13-), per note potential 6wk course
- ID following, appreciate recs
- Pain mgmt: converted to PO oxy 10-15mg q6h; hold home tramadol; schedule standing tylenol
#L hip pain
#L hip pseudotumor, suspected
Had L hip replacement with [facility] ~30yrs ago. Chronic L hip pain led to sacral ulcers & prior admission for acute gastritis 2/2 NSAID overuse (was then transitioned to tramadol). In Jun 2025 - saw ortho last month for L hip pain and was given
prednisone for presumed bursitis. Pt L hip pain not improving significantly s/p treatment of infection in L hip, requiring dilaudid. Given this, c/f additional underlying pathology in L hip; ortho consulted. MRI suggests c/f reactive pseudotumor in
L hip. Per ortho 08/18, should f/u with ortho (Dr. Laguerre) for discussion of revision/addressing pseudotumor.
- Ortho consulted, appreciate recs
- Likely f/u outpatient procedure for removal of psuedotumor
#Extensive pressure ulcers, unstageable
Per wound care 08/12, patient with bilateral unstageable/necrotic elbow and knee pressure injuries, L buttocks, and sacral DTI (photos in chart). Gen surg consulted 08/13 - no need for debridement, appears to be healing appropriately. Likely not
source of L hip infection from SSTI. However, suspect contributed to patient's pain/weakness/inability to stand.
- Continue wound care
#Hyponatremia
Na 129 on 08/15. Likely 2/2 poor PO solute intake coupled with PO fluid intake (pt says appetite mainly for milk, juice vs. solid foods). Also likely component of SIADH 2/2 pain. Urine osm 470, urine na 46, urine cr 63. 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
Today, Na: 129>131>129>128
- 48oz fluid restriction
- Continue to monitor
- Pain mgmt as above
#Constipation
In s/o poor PO intake for first days of admission, immobility in med 2/2 pain, & opioid analgesics. No BM since admission, as of 08/17 am.
Today: s/p 2 loose BMs
- Schedule miralax 08/16-08/18
- PRN docusate/senna daily
#Urinary retention
Pt not urinating b/c cannot stand. Denies inability to urinate. Just pain with standing/unable to stand, and states he cannot urinate while lying down. Had been getting intermittent straight cath since admission 4x until simmons cath 08/14-. Patient
voided without catheterization on 08/17 while lying in bed.
- Straight cath PRN
- PT/OT to continue to work w patient to encourage standing OOB
#Generalized weakness
#Lightheadedness & recurrent falls
Likely 2/2 poor PO intake (per family, had not eaten for past 4 days prior to admission) in s/o infection & pain. CT head (08/11) without ICH s/p falls. Orthostatics (just supine & sitting) demonstrated diastolic BP drop. 08/12 - unable to obtain
standing orthostatics b/c patient unable to stand 2/2 pain & weakness.
- Compression stockings
- Encourage PO intake
- PT/OT following
#RUDOLPH, resolved
#Elevated CK, resolved
Pt w evidence of dehydration, orthostatics. Had been lying on the floor for some time; had not eaten for 4 days at time of presentation before brought in by nephew. CK elevated (4172) w rhabdo contribution from lying on floor. RUDOLPH 2/2 prerenal & CK
injury.
Today, Cr 1.7>1.0>0.7 s/p fluids. CK: 4172>1444.
- Continue to monitor
#Chronic
- HTN - metoprolol succinate 12.5mg daily
- HLD - lipitor 20mg daily
- BPH - tolterodine 4mg daily (holding); tamsulosin 0.4mg daily
- Asthma - symbicort inhaler; albuterol PRN
- Anxiety - ntd
- Arthritis - acetaminophen prn; home tramadol (holding)
- GERD - pantoprazole 40mg daily
#Global
- DVT ppx: lovenox
- Diet: regular
- Code: DNR/DNI
- Dispo: lives at home with ; PT/OT recommends for SNF; accepted at [facility] SN[facility] on Tuesday
Anticipated Discharge: 24 - 48 hours
Subjective/Interval History
-
Date of Service: August 18, 2025
Patient this morning states that his pain is well controlled. He feels that the p.o. oxycodone is actually even better than the IV Dilaudid. He was able to sleep fairly well last night, although some disruptions with nursing care. States that he
was also able to void urine without straight catheterization. He was not able to stand up to do this, he urinated in bedpan. Understands the plan to go to [facility]. States that he was finally able to have bowel movements yesterday, loose
stool, and bedpan. Appetite has been good.
Objective Data
-
Labs:
Laboratory Results
08/18/25
06:00
WBC Pending
Hgb Pending
Hct Pending
Plt Count Pending
Sodium Pending
Potassium Pending
Chloride Pending
Carbon Dioxide Pending
BUN Pending
Creatinine Pending
Glucose Pending
Calcium Pending
Total Bilirubin Pending
AST Pending
ALT Pending
Alkaline Phosphatase Pending
Vital Signs:
Vital Signs
Temp Pulse Resp BP Pulse Ox
97.3 F 84 16 137/79 96
08/17/25 23:26 08/18/25 07:50 08/18/25 07:50 08/17/25 23:26 08/18/25 07:50
I&O
08/17/25 08/18/25 08/19/25
06:59 06:59 06:59
Intake Total 1200 / 1200
Output Total 950 / 950 550 / 550
Balance 250 / 250 -550 / -550
Review of Systems
-
History Source: Patient
All other systems: Reviewed and negative
Physical Exam
-
General: Well Developed, Well Nourished and Conversant
HEENT: Normocephalic, Atraumatic and Anicteric
Respiratory: Non Labored Respirations
Cardiac: Regular Rhythm
GI: Nondistended
Genito-urinary: Negative Simmons
Musculoskeletal: No Edema
Skin: Other (sacral ulcers, photos in chart )
Neuro: AO x 3
Psych: Calm
Data Reviewed
-
Total Time Spent with Patient (in minutes): 15
Critical Care Time (in minutes): 35
Labs: Labs Reviewed by me
[2025-08-18] MEDS: PROTONIX 40 MG PO (08:05)
[2025-08-18] MEDS: FLOMAX 0.4 MG PO (08:05)
[2025-08-18] MEDS: TOPROL XL 12.5 MG PO (08:05)
[2025-08-18] MEDS: CARAFATE 1 GRAM PO ×3 (08:05→21:33)
[2025-08-18] MEDS: DESENEX/MITRAZOL/ZEASORB 1 APPLIC TOPICAL ×2 (08:07→21:32)
[2025-08-18] MEDS: MIRALAX PO (08:07)
[2025-08-18 08:45] LABS: Hematocrit 39.6 % (39.0-52.0); Hemoglobin 13.5 g/dL (13.0-18.0); Mean Corp Hgb Conc. 34.1 g/dL (33.0-37.0); Mean Corpuscular Volume 89.6 fL (80.0-94.0); Platelet Count 290 10^3/uL (130-400); Red Cell Dist. Width 14.3 % (11.5-14.5)
[2025-08-18] MEDS: SANTYL OINTMENT 1 APPLIC TOPICAL (09:06)
[2025-08-18 09:09] LABS: ALT (SGPT) 42 U/L (0-50); AST (SGOT) 48 U/L (17-59); Albumin 2.1 g/dl (3.5-5.0); Alkaline Phosphatase 127 U/L (38-126); Blood Urea Nitrogen 14 mg/dl (9-20); Calcium 7.8 mg/dl (8.4-10.2); Carbon Dioxide 30 mmol/L (22-30); Chloride 99 mmol/L (98-107); Estimated Creatinine Clearance 112 ml/min; Glucose 108 mg/dl (70-99); Potassium 3.7 mmol/L (3.5-5.1); Sodium 128 mmol/L (135-145); Total Protein 4.9 g/dl (6.3-8.2); eGFR > 60.00
[2025-08-18 10:37] LABS: Nucleated Red Blood Cells % 0.2 % (-)
[2025-08-18] MEDS: STERILE WATER FOR INJECTION 20 ML IV (11:49)
[2025-08-18] MEDS: CARAFATE PO ×2 (11:49→12:06)
[2025-08-18] MEDS: ROCEPHIN 2000 MG IV (11:49)
--- NOTE | 2025-08-18 13:19 | W.PN.ID1 ---
Date of Service
Date of Service: August 18, 2025
Today's Communication
Continue ceftriaxone.
Assessment / Plan
# Streptococcus anginosus bacteremia 4 out of 4 bottles (drawn at the same time)
# Fever - resolved
# Leukocytosis -resolved
# hx L THR x 4 with acute left hip pain and groin pain
# Multiple skin abrasions/tears due to fall
# Left iliac fossa abscess adjacent to surgical screw in the left ilium
- Culture with strep species
- Repeat bcx's neg to date.
- TTE: no gross vegetation
- MRI pelvis/left hip : small fluid collections in iliac fossa largest, 3 x 1.5cm, adjacent to L hip prosthesis screw, soft tissue enhancement of left iliacus muscle
- 08/15 IR aspiration of hemorrhagic iliacus fluid collection
- Fluid 42K wbc, 86% wbc.
- Fluid cx with strep spp.
- Unclear if Strep bacteremia is from skin source or from infected bone screw
--> Continue ceftriaxone 2g IV q24. Would complete at least a 2-week course of therapy, although therapy may need to be longer (i.e. 6 weeks)
- Bacterial growth from collection adjacent to the screw is highly suspicious for infection, which ultimately would either require long-term suppression or screw removal.
- Patient will need to follow-up with Orthopedics regarding further management.
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
HTN
Asthma
Dyslipidemia
BPH
Nephrolithiasis hx right lithotripsy
Retroperitoneal and pelvic lipomatosis
Ventral hernia
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
Cholecystectomy
Chief Complaint
-: Bacteremia
Subjective / Review of Systems
Review of Systems: No Fever and No Chills
Vital Signs / Physical Exam
Vital Signs
Vital Signs
Temp Pulse Resp BP Pulse Ox
98.8 F 84 18 153/83 96
08/18/25 08:00 08/18/25 08:05 08/18/25 08:00 08/18/25 08:00 08/18/25 08:00
Physical Exam
Constitutional: Chronically Ill
Eyes: No Conjunctival Hemorrhage and Sclera Anicteric
Cardiovascular: Regular Rate
Pulmonary: Clear
Gastrointestinal: Soft, Non Tender, Non Distended and Normal Bowel Sounds
Musculoskeletal: Other (Left groin tender. Left hip ecchymotic, limited ROM)
Wound: Other (Wound phtotos reviewed. Multiple skin abrasions/skin tears)
Neurological: AO x 3
Objective Data
Lab Data
Lab Results
08/18/25 08:20
08/18/25 08:20
ESR Cancelled 08/16/25 12:47
Estimated Creat Clear 112 ml/min 08/18/25 08:20
Lactic Acid 1.7 mmol/L (0.7-2.0) 08/11/25 22:45
Total Bilirubin 0.6 mg/dl (0.2-1.3) 08/18/25 08:20
AST 48 U/L (17-59) 08/18/25 08:20
ALT 42 U/L (0-50) 08/18/25 08:20
Alkaline Phosphatase 127 U/L (38-126) H 08/18/25 08:20
C-Reactive Protein 166.10 mg/L (0.0-10.00) H 08/16/25 07:48
Most recent labs reviewed.
Micro Results:
08/13/25 12:04 Blood Culture - Final
Blood/Venous No Growth - Final Report
08/13/25 11:02 Blood Culture - Final
Blood/Venous No Growth - Final Report
08/15/25 11:20 Body Fluid Culture - Preliminary
Fluid Streptococcus species
Gram Stain - Preliminary
08/12/25 16:33 Respiratory Virus Culture - Preliminary
Nasalpharynx
08/11/25 12:14 Blood Culture - Final
Blood/Venous Streptococcus anginosus
Gram Stain - Final
08/11/25 12:14 Blood Culture - Final
Blood/Venous Streptococcus anginosus
Gram Stain - Final
08/12/25 16:19 MRSA Screen - Final
Nose No Methicillin Resistant Staphylococcus aureus isolated.
08/11/25 12:14 Urine Culture - Final
Urine NO GROWTH
08/14/25 Pelvis MRI: Small nonenhancing fluid signal intensity structures in the left iliac fossa, the largest component measuring approximately 3 x 1.5 cm. No apparent defined peripheral thickened capsule or enhancement is appreciated. Chronic
severe atrophy and fatty replacement of the left psoas muscle and iliacus muscle. Mild diffuse nonfocal soft tissue enhancement/edema within the iliacus muscle and adjacent to the cortical margin of the iliac fossa. Although the exact etiology is
uncertain, this could represent sterile inflammatory reaction related to the tip of the surgical screw which extends beyond the cortical margin of the left ilium. Cannot entirely exclude the possibility of early or developing abscess. No evidence of
osteomyelitis. Clinical correlation necessary. Ultimately, aspiration may be needed. 2) left lateral pelvic sidewall nonenhancing mass with paramagnetic properties medial to and contiguous with the left acetabulum. This may be seen with hemorrhagic
or highly proteinaceous debris, though overall most suspicious for pseudotumor related to adverse local soft tissue reaction, which is typically seen with ofkah-yo-kweph prostheses.
08/11/25 CXR: No acute cardiopulmonary abnormality. Trace bibasilar opacities favored to represent atelectasis.
08/13/25 CT a/p: Postsurgical change of the left hip. Stable hardware. Stable large low-density fluid collection in the left pelvis probable a postoperative seroma, lymphocele or chronic effusion. Associated stable bony loss of the left pelvic wall;
Infected fluid and osteomyelitis not excluded. New small probable fluid collection within the left iliacus muscle with surrounding inflammation possibly second seroma, lymphocele or effusion. Again infection cannot be excluded.
[2025-08-18 15:45] VITALS: BP 158/76
[2025-08-18] MEDS: LOVENOX 40 MG SC (18:07)
[2025-08-18] MEDS: LIPITOR 20 MG PO (18:07)
[2025-08-18 23:24] VITALS: BP 146/76
[2025-08-18] MEDS: BENTYL 20 MG PO (23:49)
[2025-08-19] MEDS: ROXICODONE 15 MG PO ×2 (03:24→13:50)
--- NOTE | 2025-08-19 05:45 | PTCARENOTE ---
Patient did not urinate during shift. He was straight cath'd on dayshift at approx 1830. Bladder scan at 2330 was 188mls. MOLD UNLOADER made aware. He was awake at 0330, so I rechecked. Bladder scan was 249. Repeat bladder scan at 0535, 307mls.
[2025-08-19] MEDS: TYLENOL PO (06:30)
[2025-08-19 06:50] LABS: Hematocrit 37.5 % (39.0-52.0); Hemoglobin 12.6 g/dL (13.0-18.0); Mean Corp Hgb Conc. 33.6 g/dL (33.0-37.0); Mean Corpuscular Volume 89.3 fL (80.0-94.0); Nucleated Red Blood Cells % 0 % (-); Platelet Count 320 10^3/uL (130-400); Red Cell Dist. Width 14.6 % (11.5-14.5)
[2025-08-19 06:58] LABS: ALT (SGPT) 44 U/L (0-50); AST (SGOT) 55 U/L (17-59); Albumin 2.0 g/dl (3.5-5.0); Alkaline Phosphatase 125 U/L (38-126); Blood Urea Nitrogen 15 mg/dl (9-20); Calcium 7.8 mg/dl (8.4-10.2); Carbon Dioxide 29 mmol/L (22-30); Chloride 100 mmol/L (98-107); Estimated Creatinine Clearance 112 ml/min; Glucose 86 mg/dl (70-99); Potassium 3.3 mmol/L (3.5-5.1); Sodium 129 mmol/L (135-145); Total Protein 4.5 g/dl (6.3-8.2); eGFR > 60.00
[2025-08-19] MEDS: SYMBICORT 160/4.5 MCG INHALER 2 PUFF INH (07:26)
[2025-08-19 07:30] VITALS: BP 143/72
[2025-08-19] MEDS: CARAFATE PO (07:31)
[2025-08-19] MEDS: PROTONIX 40 MG PO (07:40)
[2025-08-19] MEDS: SANTYL OINTMENT 1 APPLIC TOPICAL (07:40)
[2025-08-19] MEDS: TOPROL XL 12.5 MG PO (07:41)
[2025-08-19] MEDS: FLOMAX 0.4 MG PO (07:41)
[2025-08-19] MEDS: DESENEX/MITRAZOL/ZEASORB 1 APPLIC TOPICAL (07:42)
[2025-08-19] MEDS: ROXICODONE 10 MG PO (08:41)
--- NOTE | 2025-08-19 09:10 | W.PN.ID1 ---
Date of Service
Date of Service: August 19, 2025
Today's Communication
6 weeks of IV ceftriaxone.
Assessment / Plan
# Streptococcus anginosus bacteremia 4 out of 4 bottles
# Left hip hardware infection
. Left iliac fossa abscess adjacent to surgical screw in the left ilium - Culture with strep species
# Fever - resolved
# Leukocytosis -resolved
# hx L THR x 4 with acute left hip pain and groin pain
# Multiple skin abrasions/tears due to fall
- Repeat bcx's neg to date.
- TTE: no gross vegetation
- MRI pelvis/left hip : small fluid collections in iliac fossa largest, 3 x 1.5cm, adjacent to L hip prosthesis screw, soft tissue enhancement of left iliacus muscle
- 08/15 IR aspiration of hemorrhagic iliacus fluid collection
- Fluid 42K wbc, 86% wbc.
- Fluid cx with strep spp.
- Continue ceftriaxone 2g IV q24h x 6 weeks through 09/29/25 then oral suppression if infected screw is retained.
- Infusion sheet submitted to [employer] Service Attendant.
- Patient will need to follow-up with Orthopedics regarding further management.
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
HTN
Asthma
Dyslipidemia
BPH
Nephrolithiasis hx right lithotripsy
Retroperitoneal and pelvic lipomatosis
Ventral hernia
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
Cholecystectomy
Chief Complaint
-: Bacteremia
Subjective / Review of Systems
No new issues.
Vital Signs / Physical Exam
Vital Signs
Vital Signs
Temp Pulse Resp BP Pulse Ox
97.9 F 98 16 143/72 95
08/19/25 07:30 08/19/25 07:30 08/19/25 07:30 08/19/25 07:30 08/19/25 07:30
Physical Exam
Constitutional: Chronically Ill
Eyes: No Conjunctival Hemorrhage and Sclera Anicteric
Cardiovascular: Regular Rate
Pulmonary: Clear
Gastrointestinal: Soft, Non Tender, Non Distended and Normal Bowel Sounds
Musculoskeletal: Other (Left groin tender. Left hip ecchymotic, limited ROM)
Wound: Other (Wound phtotos reviewed. Multiple skin abrasions/skin tears)
Neurological: AO x 3
Lines: PICC (RUE)
Objective Data
Lab Data
Lab Results
08/19/25 06:11
08/19/25 06:11
ESR Cancelled 08/16/25 12:47
Estimated Creat Clear 112 ml/min 08/19/25 06:11
Lactic Acid 1.7 mmol/L (0.7-2.0) 08/11/25 22:45
Total Bilirubin 0.4 mg/dl (0.2-1.3) 08/19/25 06:11
AST 55 U/L (17-59) 08/19/25 06:11
ALT 44 U/L (0-50) 08/19/25 06:11
Alkaline Phosphatase 125 U/L (38-126) 08/19/25 06:11
C-Reactive Protein 166.10 mg/L (0.0-10.00) H 08/16/25 07:48
Most recent labs reviewed.
Micro Results:
08/13/25 12:04 Blood Culture - Final
Blood/Venous No Growth - Final Report
08/13/25 11:02 Blood Culture - Final
Blood/Venous No Growth - Final Report
08/15/25 11:20 Body Fluid Culture - Preliminary
Fluid Streptococcus species
Gram Stain - Preliminary
08/12/25 16:33 Respiratory Virus Culture - Preliminary
Nasalpharynx
08/11/25 12:14 Blood Culture - Final
Blood/Venous Streptococcus anginosus
Gram Stain - Final
08/11/25 12:14 Blood Culture - Final
Blood/Venous Streptococcus anginosus
Gram Stain - Final
08/12/25 16:19 MRSA Screen - Final
Nose No Methicillin Resistant Staphylococcus aureus isolated.
08/11/25 12:14 Urine Culture - Final
Urine NO GROWTH
08/14/25 Pelvis MRI: Small nonenhancing fluid signal intensity structures in the left iliac fossa, the largest component measuring approximately 3 x 1.5 cm. No apparent defined peripheral thickened capsule or enhancement is appreciated. Chronic
severe atrophy and fatty replacement of the left psoas muscle and iliacus muscle. Mild diffuse nonfocal soft tissue enhancement/edema within the iliacus muscle and adjacent to the cortical margin of the iliac fossa. Although the exact etiology is
uncertain, this could represent sterile inflammatory reaction related to the tip of the surgical screw which extends beyond the cortical margin of the left ilium. Cannot entirely exclude the possibility of early or developing abscess. No evidence of
osteomyelitis. Clinical correlation necessary. Ultimately, aspiration may be needed. 2) left lateral pelvic sidewall nonenhancing mass with paramagnetic properties medial to and contiguous with the left acetabulum. This may be seen with hemorrhagic
or highly proteinaceous debris, though overall most suspicious for pseudotumor related to adverse local soft tissue reaction, which is typically seen with fedsc-jy-ypela prostheses.
08/11/25 CXR: No acute cardiopulmonary abnormality. Trace bibasilar opacities favored to represent atelectasis.
08/13/25 CT a/p: Postsurgical change of the left hip. Stable hardware. Stable large low-density fluid collection in the left pelvis probable a postoperative seroma, lymphocele or chronic effusion. Associated stable bony loss of the left pelvic wall;
Infected fluid and osteomyelitis not excluded. New small probable fluid collection within the left iliacus muscle with surrounding inflammation possibly second seroma, lymphocele or effusion. Again infection cannot be excluded.
--- NOTE | 2025-08-19 11:16 | CM ---
Addendum entered by Teresa Davis 08/19/25 15:49:
Patient scheduled for 6:00 p.m. ambulance transport, [facility] updated.
[facility] updated with transport time, provided with updated clinicals and wound care notes.
Plan; [facility], 6:00 p.m. ambulance transport
[facility]
Report: [phone]

Original Note:
CM reviewed chart, patient seen bedside.
Per chart, potential transfer to [facility] able to offer a bed to patient if stable for d/c.
Patient will require IV antibiotics at SNF- line info and antibiotics sent to [facility].
CM spoke with patients , Emerita, via phone, reviewed IMM, placed in chart.
Patient will require ambulance transport once stable.
Plan; d/c to [facility] vs transfer to [facility]
[2025-08-19] MEDS: TYLENOL 650 MG PO ×2 (11:31→17:14)
[2025-08-19] MEDS: CARAFATE 1 GRAM PO ×2 (11:31→17:14)
[2025-08-19] MEDS: STERILE WATER FOR INJECTION 20 ML IV (11:31)
[2025-08-19] MEDS: ROCEPHIN 2000 MG IV (11:33)
--- NOTE | 2025-08-19 13:47 | W.PN.HOSP.TC ---
Addendum entered and electronically signed by Chapin Chan MD 08/19/25 22:51:
Attending Addendum:
I saw and evaluated the patient. I reviewed the resident�s note and agree with findings and plan as documented in the resident�s note. Sub: complains if left LE pain on ambulation but controlled with pain meds. Seen with PT. No other complaints.
Full 12 point ROS reviewed and negative except as documented Exam: Vitals reviewed in chart GEN-NAD heart RRR lungs clear abd soft LE no edema Neuro MS 04/01 [address] in place
#L iliacus abscess
#strep bacteremia
-IR drainage of L iliac fossa/iliacus fluid (08/15): WBC 88280, PMN 86.5%. Fluid cx with strep.
- Ceftriaxone x 6wk course
- ID following, appreciate recs
- Pain mgmt: converted to PO oxy 10-15mg q6h; hold home tramadol; cont standing tylenol
- L hip replacement with Joaquina ~30yrs ago. f/u with ortho (Dr. Laguerre) for discussion of revision/addressing pseudotumor.
- Ortho consulted, appreciate recs
- Likely f/u outpatient procedure for removal of psuedotumor
#Extensive pressure ulcers, unstageable
Per wound care 08/12, patient with bilateral unstageable/necrotic elbow and knee pressure injuries, L buttocks, and sacral DTI (photos in chart). Gen surg consulted 08/13 - no need for debridement, appears to be healing appropriately. Likely not
source of L hip infection from SSTI. However, suspect contributed to patient's pain/weakness/inability to stand.
- Continue wound care
#Hyponatremia
- chronic and stable
- 48oz fluid restriction
- Continue to monitor
- Pain mgmt as above
#Urinary retention
- resolved
#RUDOLPH, resolved
#Elevated CK, resolved
#Chronic
- HTN - cont metoprolol succinate
- HLD - lipitor
- BPH - tolterodine 4mg daily (holding); tamsulosin 0.4mg daily
- Asthma - symbicort inhaler; albuterol PRN
- Anxiety - ntd
- Arthritis - acetaminophen prn; home tramadol (holding)
- GERD - pantoprazole 40mg daily
#Global
- DVT ppx: lovenox
- Diet: regular
- Code: DNR/DNI
- Dispo: lives at home with ; PT/OT recommends for SNF; DC [facility] today
Time spent coordinating care, DC planning, review of DC plan of care with resident, transition of care, review of records, med rec/scripts sent electronically, consults, notes, d/w consultants, nursing, and CM� 35 mins >50% of this time was devoted
to counseling and coordination of care
Original Note:
Today's Communication/Plan
-
Patient stable for discharge to [facility]. Patient should continue his antibiotics and line info has been sent to the [facility] facility. Pain controlled medication prescription sent to the [facility] facility.
Assessment / Plan
Assessment / Plan
Assessment/Plan:
-Left iliacus abscess:
-GPC bacteremia:
On presentation: leukocytosis WBC 14.9; mentation change; fever of 101.6. Workup for common infectious sources (UTI, PNA, GI) negative.
MRI (08/14): small nonenhancing fluid signal intensity in L iliac fossa; soft tissue edema within iliacus muscle & adjacent to cortical margin of iliac fossa; could represent sterile inflammatory rxn to surgical screw vs. early/developing abscess.
IR drainage of L iliac fossa/iliacus fluid (08/15): WBC 06176, PMN 86.5%. Fluid cx with strep.
C/f L iliacus abscess given L hip pain, fluid collection w PMNs & WBC near 50K, bacteremia, & inability to stand. Suspect likely seeded from bacteremia that was precipitated by open wounds/vasculature, bacteria into bloodstream. Per ortho, no c/f
joint effusion/PJI. Per ID, c/f infection adjacent to screw. Insufficient fluid in joint to tap; require alpha-defensin to eval for infection in s/o abx & rule in PJI - not available at [place]. Continue to monitor clinically.
WBC (14.9>>9.5>10.4> 13.0> 13.2) -patient is afebrile and vital signs are stable
Ceftriaxone IV (08/13- ; s/p ceftriaxone 08/11-08/12, s/p zosyn 08/12-; s/p vanc 08/13-), patient will be discharged on a 6 weeks ceftriaxone course as per infectious diseases recommendations
Pain mgmt: Patient to be discharged with PO oxy 15 mg q6h for moderate to severe pain and 5 mg every 6 hours additional for breakthrough pain; hold home tramadol; schedule standing tylenol
-Left hip pain
-Left hip pseudotumor, suspected
Had L hip replacement with Joaquina ~30yrs ago.
MRI suggests c/f reactive pseudotumor in L hip. Per ortho 08/18, should f/u with ortho (Dr. Laguerre) for discussion of revision/addressing pseudotumor.
Ortho consulted, appreciate recs
Likely f/u outpatient procedure for removal of psuedotumor
- Extensive pressure ulcers, unstageable
Per wound care 08/12, patient with bilateral unstageable/necrotic elbow and knee pressure injuries, L buttocks, and sacral DTI (photos in chart). Gen surg consulted 08/13 - no need for debridement, appears to be healing appropriately. Likely not
source of L hip infection from SSTI. However, suspect contributed to patient's pain/weakness/inability to stand.
Patient to be discharged with wound care recommendations
-Chronic hyponatremia: Stable
Na 129 on 08/15. Likely 2/2 poor PO solute intake coupled with PO fluid intake (pt says appetite mainly for milk, juice vs. solid foods). Also likely component of SIADH 2/2 pain. Urine osm 470, urine na 46, urine cr 63. 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
Patient's sodium has been trending below 135 across numerous lab values taken over the years suggesting a chronic hyponatremic state
48oz fluid restriction
Continue to monitor
Pain mgmt as above
- Constipation: Stable
Schedule miralax 08/16-08/18
PRN docusate/senna daily
- Urinary retention: Stable
Straight cath PRN
PT/OT to continue to work w patient to encourage standing OOB
-Generalized weakness
-Lightheadedness & recurrent falls
Likely secondary to poor oral intake. The family states that the patient had not eaten for days prior to admission
Compression stockings
Encourage PO intake
PT/OT following
-RUDOLPH, resolved
-Elevated CK, resolved
Pt w evidence of dehydration, orthostatics. Had been lying on the floor for some time; had not eaten for 4 days at time of presentation before brought in by nephew. CK elevated (4172) w rhabdo contribution from lying on floor. RUDOLPH 2/2 prerenal & CK
injury.
Creatinine is 1.7 on admission, after IV fluid support the patient's creatinine has been 0.6 and continues to trend at that value
Creatinine kinase: 4172 on 08/11/2025, 1444 on 08/12/2025
Continue to monitor
-Hypertension: Stable
metoprolol succinate 12.5mg daily
- Hyperlipidemia: Stable
lipitor 20mg daily
-Benign prostatic hyperplasia: Stable
tolterodine 4mg daily (holding); tamsulosin 0.4mg daily
-Asthma: Stable
symbicort inhaler; albuterol PRN
-Anxiety: Stable
-Arthritis: Stable
acetaminophen prn; home tramadol (holding)
-GERD: Stable
pantoprazole 40mg daily
CODE STATUS: DNR
Stress Ulcer Prophylaxis: Pantoprazole
DVT Prophylaxis: Lovenox
Anticipated Discharge: Today
Subjective/Interval History
-
Date of Service: August 19, 2025
Met with patient at the bedside. Overall, he appears frustrated and is not in great spirits. He expresses frustration in his current condition and is unable to elaborate how he feels much further than that. He mentioned that he spoke with his
but did not elaborate any further. Supportive counseling provided at the bedside.
Objective Data
-
Labs:
Laboratory Results
08/19/25
06:11
WBC 13.2 H
Hgb 12.6 L
Hct 37.5 L
Plt Count 320
Sodium 129 L
Potassium 3.3 L
Chloride 100
Carbon Dioxide 29
BUN 15
Creatinine 0.6 L
Glucose 86
Calcium 7.8 L
Total Bilirubin 0.4
AST 55
ALT 44
Alkaline Phosphatase 125
Vital Signs:
Vital Signs
Temp Pulse Resp BP Pulse Ox
97.9 F 98 16 143/72 95
08/19/25 07:30 08/19/25 07:30 08/19/25 07:30 08/19/25 07:30 08/19/25 07:30
I&O
08/18/25 08/19/25 08/20/25
06:59 06:59 06:59
Intake Total 480 / 480 120 / 120
Output Total 550 / 550 810 / 810
Balance -550 / -550 -330 / -330 120 / 120
Review of Systems
-
History Source: Patient
Constitutional: Reports No Symptoms
EENT: Reports No Symptoms Reported
Respiratory: Reports No Symptoms
Cardiac: Reports No Symptoms
Abdomen/GI: Reports No Symptoms
Breast: Reports No Symptoms
Psych: Reports Sad
Physical Exam
-
General: Well Developed, Well Nourished and No Apparent Distress
HEENT: Normocephalic and Atraumatic
Respiratory: Clear to Auscultation; Negative Wheezes, Rales, Rhonchi or Crackles
Cardiac: Regular Rhythm and S1/S2; Negative Murmur, Rub or JVD
GI: Soft, Nontender, Nondistended and Normal Bowel Sounds
Musculoskeletal: No Edema
Skin: Other (Sacral ulcers, photos in chart)
Neuro: Awake, Alert, Oriented and AO x 3
[2025-08-19 14:40] VITALS: BP 151/114; PULSE 77; O2SAT 97
[2025-08-19] MEDS: KCL 10 MEQ PO (14:48)
[2025-08-19 15:54] VITALS: BP 96/79
[2025-08-19] MEDS: LIPITOR 20 MG PO (17:14)
[2025-08-19] MEDS: LOVENOX 40 MG SC (17:14)
--- NOTE | 2025-08-19 20:06 | W.DCSUMMARY ---
Discharge Summary
Discharge Data
Date of Admission: 08/11/25
Date of Discharge: 08/20/25
-
Pending Results: No
Hospital Course
Discharging Physician : Dr. Carlos
Disposition :�[facility], [facility]
Primary care physician : Jerrell Griffiths
Principal Discharge diagnosis :�Left iliacus abscess; strep bacteremia; unstageable decubitus ulcers; left hip pseudotumor
Chronic Discharge diagnosis :�Urinary retention, hypertension, hyperlipidemia, BPH, asthma, anxiety, arthritis, GERD
Hospital Course :�
Presentation: Patient presented on 08/11/2025 to ED after nephew called when he was found extremely weak/lethargic/falling on the floor with AMS. Had leukocytosis (WBC 14.9) and fever to 101.6. Patient was initially thought to have UTI and was
briefly treated with empiric antibiotics and admitted to the floor. However urine culture returned negative. Workup for pneumonia was negative. Patient without any symptoms consistent with gastroenteritis.
1. Strep bacteremia; left iliacus/pelvic fossa abscess
On 08/12 patient complained of severe left groin pain when working with PT. Patient was also noted to have extensive sacral decubitus wounds, unstageable. CT a/p (08/13): with L pelvic inflammation, fluid collection in L pelvis, L iliacus. Patient
with prosthetic L hip (placed by [facility], s/p revisions, ~30 yrs ago). MRI (08/14): small nonenhancing fluid signal intensity in L iliac fossa; soft tissue edema within iliacus muscle & adjacent to cortical margin of iliac fossa; could
represent sterile inflammatory rxn to surgical screw vs. early/developing abscess. IR drainage of L iliac fossa/iliacus fluid (08/15): WBC 88844, PMN 86.5%. Aspirated fluid cx with strep. Patient blood cultures from 08/12 grew gram-positive cocci x
2; positive for strep species susceptible to ceftriaxone. MRSA swab returned negative.
Received brief courses of zosyn and vancomycin for empiric anaerobic coverage due to concern for seeding from sacral decubitus ulcer. Patient was started on IV ceftriaxone on 08/13. PICC line placed 08/18. To be continued on 2 more weeks of IV
ceftriaxone (last day 09/01), with potential extension to 6-week total course, pending ortho follow-up outpatient.
Repeat blood cultures following ceftriaxone course were without growth. Patient remained afebrile throughout hospitalization. White count trended down from 14.9 on admission to within normal limits and is 13.2 on discharge.
Likely L iliacus abscess given L hip pain, fluid collection w PMNs & WBC near 50K, bacteremia, & inability to stand. Suspect this was seeded adjacent to prosthetic joint from bacteremia, which was precipitated by open decubitus wounds, bacteria into
bloodstream. Per discussion with orthopedic surgery, low concern for prosthetic joint infection and/or septic joint, given location of fluid collection on the MRI. However, [place] does not have alpha defense and panel which would be used to
definitively rule out PJI, if there were to be enough fluid to tap. Infectious disease had some concern about infection given location of fluid pocket adjacent to joint from left hip replacement. Given patient's clinical improvement with
ceftriaxone, assumption that infection is being treated. Patient to follow-up outpatient with orthopedics for additional management of left hip pain.
2. Left hip pain; suspected left hip pseudotumor
Patient had left hip replacement with [facility] 30 to 40 years ago. More recent development of chronic left hip pain led to immobility, leading to development of sacral ulcers & prior admission in June 2025 for acute gastritis 2/2 NSAID
overuse. Saw ortho June 2025 for L hip pain and was given prednisone for presumed bursitis. Was transitioned to tramadol for pain at home. Follows with Dr. Laguerre orthopedist.
While inpatient, patient's left hand pain was not improving significantly following treatment of his left iliac us infection with ceftriaxone. He ultimately required Dilaudid to control pain, which was converted to oxycodone. Per Ortho consult,
MRI suggests likely reactive pseudotumor formation in left hip. This is likely source of ongoing/chronic pain. He should follow-up outpatient with Dr. Laguerre for discussion of surgically addressing pseudotumor. Patient discharged with standing
Tylenol and oxycodone 10-15 mg every 6 hours as needed.
3. Extensive pressure ulcers, unstageable
Per wound care 08/12, patient with bilateral unstageable/necrotic elbow and knee pressure injuries, L buttocks, and sacral DTI (photos in chart). Gen surg consulted 08/13 - no need for debridement, appears to be healing appropriately. Low concern for
SSTI. However, suspect contributed to patient's pain/weakness/inability to stand and provided entry point for strep bacteremia. Patient requires rigorous wound care follow-up outpatient. Was doing no wound care at home prior to this admission.
4. Other
- Urinary retention: Patient endorsed inability to urinate because of his inability to stand due to pain and weakness. Received intermittent straight catheterization throughout most of admission. Had Arriaza catheter in for 3 days. Arriaza was
removed on 08/16, and home tolterodine was stopped. Patient was able to void spontaneously while lying in bed on 08/17. Recommend continuing to hold tolterodine at discharge.
- Hyponatremia: Patient's sodium downtrended during admission to a natasha of 129. Urine osm 470, urine na 46, urine cr 63. 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 Was put on 48 ounces fluid restriction. Recommend continuing this.
- Constipation: Combination of poor p.o. intake for the week preceding admission in the first few days of admission, immobility in bed secondary to pain, and use of opioid analgesics. Patient was started on MiraLAX and senna. Recommend continuing
this outpatient.
- RUDOLPH, elevated CK: Patient presented with evidence of dehydration. Had been lying on the floor at home following falls. Had not eaten for 4 days at time of presentation. CK was elevated to 4172 on admission likely secondary to mild rhabdo from
lying on floor. RUDOLPH with creatinine to 1.7 also likely secondary to prerenal injury due to low p.o. intake, in combination with injury from elevated CK. Creatinine down trended to normal limits (0.7) following fluids. Creatinine kinase trended
down to 1444 and then trending was discontinued.
Important imaging findings :�
CT abdomen/pelvis with IV contrast (08/13):
Postsurgical change of the left hip. Stable hardware. Stable large low-density fluid collection in the left pelvis probable a postoperative seroma, lymphocele or chronic effusion. Associated stable bony loss of the left pelvic wall.. Infected fluid
and osteomyelitis not excluded. New small probable fluid collection within the left iliacus muscle with surrounding inflammation possibly second seroma, lymphocele or effusion. Again infection cannot be excluded.
MRI pelvis (08/14):
Left lateral pelvic sidewall nonenhancing mass with paramagnetic properties medial to and contiguous with the left acetabulum. This may be seen with hemorrhagic or highly proteinaceous debris, though overall most suspicious for pseudotumor related
to adverse local soft tissue reaction, which is typically seen with [id number] prostheses.
Small nonenhancing fluid signal intensity structures in the left iliac fossa, the largest component measuring approximately 3 x 1.5 cm. No apparent defined peripheral thickened capsule or enhancement is appreciated. Chronic severe atrophy and fatty
replacement of the left psoas muscle and iliacus muscle. Mild diffuse nonfocal soft tissue enhancement/edema within the iliacus muscle and adjacent to the cortical margin of the iliac fossa. Although the exact etiology is uncertain, this could
represent sterile inflammatory reaction related to the tip of the surgical screw which extends beyond the cortical margin of the left ilium. Cannot entirely exclude the possibility of early or developing abscess. No evidence of osteomyelitis.
Clinical correlation necessary. Ultimately, aspiration may be needed.
Procedure findings :�
CT-guided aspiration of left iliac fossa fluid collection (08/15):
20 cc hemorrhagic fluid aspirated during procedure. Intramuscular. Sample sent for microbiology.
Discharge Plan
-
Patient Disposition: Care Home/SNF
Discharge Diagnosis/Procedures: L iliacus abscess; strep bacteremia; L hip pseudotumor; unstageable sacral ulcers
Condition: Fair
Diet: Restrict fluids to 48 oz
Activity: With assistance and As tolerated
Driving Restrictions: As prior to admission
Bathing Restrictions: None
Wound Care: See wound care instructions below for decubitus wounds
Activity Restrictions/Additional Instructions:
Wound Care Instructions
Bilateral knees and elbow wounds-clean with Vashe wound cleanser, Santyl ointment, adaptic, alginate, silicone border foam, change daily and prn drainage.
Sacrum-clean with Vashe wound cleanser, Santyl ointment prn necrotic tissue, adaptic, alginate, silicone border foam, change daily and prn drainage.
L buttocks-clean with Vashe wound cleanser, Santyl ointment prn necrotic tissue, adaptic, alginate, cover with silicone border foam or ABD pad secured with silicone tape, change daily and prn drainage.
R medial lower buttocks blister-clean gently with saline, pat dry, apply no sting barrier wipe or zinc barrier ointment daily and prn soilage.
Heels-protective foam dressing, change q 3 days and prn loosened dressing.
Dry abrasions on head-clean with saline daily. Apply silicone border foam daily prn drainage.
air mattress
turning schedule
soft heel relief boots; off load heels off bed with pillow/s while boots off.
Follow up with wound manager wound care or at wound care center call for an appointment.
Referrals:
[facility] [Outside, Wound Care] - in one to two weeks
Referral Note: for decubitus wounds
Darion Laguerer MD [Non-Admitting Privileges, Orthopedics] - in one to two weeks
Referral Note: L hip pseudotumor, chronic pain, strep + abscess in L iliacus adjacent to L hip screw
Jerrell Griffiths DO [Family Provider, Family Practice] - in one to two weeks
Gillian Kwok MD [Active, Infectious Diseases] - in one month
Additional Discharge Medication Instructions: Medications:
- Continue IV ceftriaxone 2g IV daily x 6 weeks through 09/29/25, via PICC line; final abx duration to be determined by orthopedic surgery follow-up
- Take tylenol 650mg every 6 hours for the next week
- You may take 5mg oxycodone 10-15mg every 6 hours for moderate-severe pain not controlled by the tylenol (dr rush to add to rx list )
- STOP taking your tramadol while you are taking the oxycodone
- STOP taking tolterodine (this will help with improving your urinary retention)
Follow up appointments:
- wound care center (call for an appointment) in 1-2 weeks, for care of your skin ulcers
- [facility] (Dr. Laguerre) in 1-2 weeks, to discuss L hip pseudotumor & infected screw
- Primary care physician (Dr. Griffiths) in 1-2 weeks, to discuss urinary retention/tolterodine
Prescriptions:
New
miconazole nitrate [Miconazorb AF] 2 % Powder
1 applic topical BID Qty: 85 0RF
Rx Instructions:
for skin lesions
Santyl 250 unit/gram Ointment
1 applic topical DAILY Qty: 15 0RF
Rx Instructions:
for skin lesions
Santyl 250 unit/gram Ointment
1 applic topical DAILYPRN PRN (Reason: necrotic tissue) Qty: 15 0RF
sennosides-docusate sodium [Senna Plus] 8.6-50 mg Tablet
1 tab PO DAILYPRN PRN (Reason: constipation) Qty: 30 0RF
acetaminophen 325 mg Tablet
650 mg PO Q6H 7 Days Qty: 56 0RF
ceftriaxone 2 gram Recon Soln
2,000 mg IV Q24H Qty: 25 0RF
Rx Instructions:
To continue at least through 09/01. Potential extension of up to 4 more weeks, pending ortho f/u.
oxycodone 15 mg tablet
15 mg PO Q6H PRN (Reason: Moderate/Severe Pain) Qty: 30 0RF
oxycodone 5 mg capsule
5 mg PO Q6H PRN (Reason: Breakthrough Pain) Qty: 30 0RF
Continued
simvastatin 40 MG tablet
40 mg PO QPM
tamsulosin [Flomax] 0.4 mg Capsule
0.4 mg PO DAILY
albuterol sulfate 1 PUFF HFA aerosol inhaler
2 puff inhalation R Q4HPRN PRN (Reason: asthma)
metoprolol succinate [Toprol XL] 25 mg Tablet Extended Release 24 Hr
12.5 mg PO DAILY
fluticasone furoate-vilanterol [Breo Ellipta] 200-25 mcg/dose Blister With Device
1 inh INHALATION R DAILY
Rx Instructions:
200/25
Medical Marijuana
1 puff inhalation DAILYPRN PRN (Reason: anxiety)
sucralfate 1 gram Tablet
1 g PO ACHS Qty: 60 0RF
pantoprazole [Protonix] 40 mg tablet,delayed release (DR/EC)
40 mg PO DAILY Qty: 30 0RF
polyethylene glycol 3350 [Miralax] 17 gram powder in packet
17 g PO DAILY PRN (Reason: Constipation) Qty: 14 0RF
Held
tramadol 50 mg Tablet
50 mg PO DAILYPRN PRN (Reason: moderate pains)
Hold Instructions: Resume on 09/23/25. Hold until you stop taking oxycodone and until you see your orthopedic surgeon again
Discontinued
solifenacin [Vesicare] 10 mg Tablet
10 mg PO DAILY
Discharge Orders:
Discharge Patient (As Directed); Ordered 08/19/25
Ordered By: Dev Bourgeois
Discharge Date and Time
Discharge Date/Time: 08/19/25 18:24
Print Language: LITHUANIAN
== END 2025-08-19 18:24 | DRG 559 ==
LOC: 4 WEST ACU 15:09
PROVIDERS: Internal Medicine; Nurse Practitioner Family; Radiology Vascular & Interventional Radiology; Registered Nurse; ADMITTING PHYSICIAN Internal Medicine; ATTENDING PHYSICIAN Family Medicine; CONSULT PHYSICIAN Internal Medicine Infectious Disease; CONSULT PHYSICIAN Orthopaedic Surgery; EMERGENCY PHYSICIAN Emergency Medicine; FAMILY PHYSICIAN Family Medicine; OTHER PHYSICIAN Surgery
PROC: 0K9P3ZZ Drainage of Left Hip Muscle, Percutaneous Approach (ICD-10-PCS; 2025-08-15)
PROC: 02HV33Z Insertion of Infusion Device into Superior Vena Cava, Percutaneous Approach (ICD-10-PCS; 2025-08-18)
DX: T84.69XA Infection and inflammatory reaction due to internal fixation device of other site, initial encounter (principal); A40.8 Other streptococcal sepsis; K68.12 Psoas muscle abscess; N17.9 Acute kidney failure, unspecified; I42.8 Other cardiomyopathies; I5A Non-ischemic myocardial injury (non-traumatic); M62.82 Rhabdomyolysis; E87.1 Hypo-osmolality and hyponatremia; Z66 Do not resuscitate; Y79.2 Prosthetic and other implants, materials and accessory orthopedic devices associated with adverse incidents; I12.9 Hypertensive chronic kidney disease with stage 1 through stage 4 chronic kidney disease, or unspecified chronic kidney disease; E78.00 Pure hypercholesterolemia, unspecified; J44.89 Other specified chronic obstructive pulmonary disease; K21.9 Gastro-esophageal reflux disease without esophagitis; R53.1 Weakness; R29.6 Repeated falls; I95.1 Orthostatic hypotension; M19.90 Unspecified osteoarthritis, unspecified site; N40.1 Benign prostatic hyperplasia with lower urinary tract symptoms; R33.8 Other retention of urine; E86.0 Dehydration; E88.2 Lipomatosis, not elsewhere classified; F41.9 Anxiety disorder, unspecified; L89.156 Pressure-induced deep tissue damage of sacral region; K59.09 Other constipation; N18.9 Chronic kidney disease, unspecified; L89.326 Pressure-induced deep tissue damage of left buttock; S50.312A Abrasion of left elbow, initial encounter; S50.311A Abrasion of right elbow, initial encounter; S80.212A Abrasion, left knee, initial encounter; S80.211A Abrasion, right knee, initial encounter; W19.XXXA Unspecified fall, initial encounter; Z87.891 Personal history of nicotine dependence; Z79.51 Long term (current) use of inhaled steroids; Z79.899 Other long term (current) drug therapy; Z96.642 Presence of left artificial hip joint
CPT/HCPCS: 10160; 70450; 71045; 71046; 72197; 74177; 77012; 80048; 80053; 81003; 81015; 82550; 82570; 83605; 83880; 83935; 84300; 84484; 85025; 85027; 85652; 86140; 87015; 87040; 87070; 87077; 87086; 87154; 87186; 87205; 87252; 89051; 93005; 93308; 93321; 93325; 94640; 96361; 96374; 96375; 97163; 97167; 97530; 97535; 99152; 99285; A9575; Q9967

== ENCOUNTER 2025-09-16 16:33 | Emergency (ER) | payer MEDICARE, OTHER, SELFPAY ==
[2025-09-16 16:37] VITALS: BP 146/89
--- NOTE | 2025-09-16 17:17 | ED.GENMED ---
History of Present Illness
General
Chief Complaint: Catheter/Tube Problem
Source: patient
Exam Limitations: none
Time Seen by Provider: 09/16/25 16:50
Nursing documentation reviewed up to this point in time: agreed with
History of Present Illness
History of Present Illness:
75 male from local skilled nursing dislodged right upper extremity PICC line placed a few months ago nursing reports he pulled it out patient states it fell out,
Past History
Past History
ED Past Medical History: Asthma, HTN, Hypercholesterolemia and Other (Kidney stones)
ED Past Surgical History: Cholecystectomy and Orthopedic (4 hip replacements, right hand with pins)
Patient has exhibited threatening behavior?: No
PSI?: No
Social History
Tobacco: Former smoker
Alcohol: None
Personal:
Living: with family
Employment: Retired
Family History
Family History: Hypertension
Review of Systems
Review of Systems
All Other Systems: Not applicable
Phy Exam
Physical Exam
Physical Exam:
Physical Exam
General: no apparent distress,
Neck: No jaundice
Lungs: no acute respiratory distress.
Neuro: alert and oriented. no focal neurological deficits
Skin: no rash
Psychiatric: cooperative
Extremities: Edema is present
Course
Orders/Labs/Results
Orders:
Orders
09/16/25 17:06
PICC Line As Directed
09/16/25 18:11
CR Chest Portable - 1 View Urgent
Comment:
Reason For Exam: picc placement
Reason Study Needs to be Portable: Unable to Transport
Vital Signs
Initial and Last Documented VS:
Initial Vital Signs
Temp Pulse Resp BP Pulse Ox
98.0 F 98 20 146/89 99
09/16/25 16:37 09/16/25 16:37 09/16/25 16:37 09/16/25 16:37 09/16/25 16:37
Last Documented Vital Signs
Temp Pulse Resp BP Pulse Ox
98.0 F 98 20 146/89 99
09/16/25 16:37 09/16/25 16:37 09/16/25 16:37 09/16/25 16:37 09/16/25 17:17
MDM/Problems Addressed
Differential Diagnosis Includes:
PICC line out
MDM/Problems Addressed:
PICC line
Chronic conditions affecting care:
Chronic
Acute Exacerbation and/or Progression of Chronic Illness:
Chronic infection
*Pulse Oximetry
SaO2: 99
Oxygen Mode of Delivery: Room air
Patient hypoxic: no
*Critical Care Note
Total Time (30-74mins, 75-104mins- exclusive of procedures): Not Applicable
Update Note
Update Note:
Patient presents with dislodged PICC line replaced by IV team confirmatory x-ray ordered
7:15 PM PICC line looks to be in place
ED Attending Note
-
Portions of this chart may have been created with voice recognition software.� Occasional wrong word or��sound alike� substitutions may have occurred due to the inherent limitations of voice recognition software.
Discharge Plan
Departure
Patient Disposition: Home (Routine Discharge)
Date of Disposition: 09/16/25
Time of Disposition: 19:15
Patient with high blood pressure during this ER visit?: No
Condition: Good
Discharge Problem:
Displacement of peripherally inserted central catheter (PICC)
Instructions: How to care for a peripherally inserted central catheter (PICC), Peripherally inserted central catheter (PICC) insertion
Prescriptions:
No Action
simvastatin 40 MG tablet
40 mg PO QPM
tamsulosin [Flomax] 0.4 mg Capsule
0.4 mg PO DAILY
albuterol sulfate 1 PUFF HFA aerosol inhaler
2 puff inhalation R Q4HPRN PRN (Reason: asthma)
metoprolol succinate [Toprol XL] 25 mg Tablet Extended Release 24 Hr
12.5 mg PO DAILY
fluticasone furoate-vilanterol [Breo Ellipta] 200-25 mcg/dose Blister With Device
1 inh INHALATION R DAILY
Rx Instructions:
200/25
tramadol 50 mg Tablet
50 mg PO DAILYPRN PRN (Reason: moderate pains)
Medical Marijuana
1 puff inhalation DAILYPRN PRN (Reason: anxiety)
sucralfate 1 gram Tablet
1 g PO ACHS Qty: 60 0RF
pantoprazole [Protonix] 40 mg tablet,delayed release (DR/EC)
40 mg PO DAILY Qty: 30 0RF
polyethylene glycol 3350 [Miralax] 17 gram powder in packet
17 g PO DAILY PRN (Reason: Constipation) Qty: 14 0RF
miconazole nitrate [Miconazorb AF] 2 % Powder
1 applic topical BID Qty: 85 0RF
Rx Instructions:
for skin lesions
Santyl 250 unit/gram Ointment
1 applic topical DAILY Qty: 15 0RF
Rx Instructions:
for skin lesions
Santyl 250 unit/gram Ointment
1 applic topical DAILYPRN PRN (Reason: necrotic tissue) Qty: 15 0RF
sennosides-docusate sodium [Senna Plus] 8.6-50 mg Tablet
1 tab PO DAILYPRN PRN (Reason: constipation) Qty: 30 0RF
acetaminophen 325 mg Tablet
650 mg PO Q6H 7 Days Qty: 56 0RF
ceftriaxone 2 gram Recon Soln
2,000 mg IV Q24H Qty: 25 0RF
Rx Instructions:
To continue at least through 09/01. Potential extension of up to 4 more weeks, pending ortho f/u.
oxycodone 15 mg tablet
15 mg PO Q6H PRN (Reason: Moderate/Severe Pain) Qty: 30 0RF
oxycodone 5 mg capsule
5 mg PO Q6H PRN (Reason: Breakthrough Pain) Qty: 30 0RF
Referrals:
Jerrell Griffiths DO [Family Provider, Family Practice]
Interventions
Interventions:
*General Assessment Last Done: 09/16/25 16:37
Discharge Date and Time
Print Language: NEPALI
== END 2025-09-16 20:23 | disposition home or self-care (01) ==
LOC: EMR 16:33
PROVIDERS: EMERGENCY PHYSICIAN Emergency Medicine; FAMILY PHYSICIAN Family Medicine
DX: T82.524A Displacement of infusion catheter, initial encounter (principal); Y71.2 Prosthetic and other implants, materials and accessory cardiovascular devices associated with adverse incidents; I10 Essential (primary) hypertension; E78.00 Pure hypercholesterolemia, unspecified; J45.909 Unspecified asthma, uncomplicated; Z87.891 Personal history of nicotine dependence; Z96.649 Presence of unspecified artificial hip joint; Z82.49 Family history of ischemic heart disease and other diseases of the circulatory system
CPT/HCPCS: 99283; 71045

== ENCOUNTER 2025-10-14 07:24 | Emergency (ER) | payer MEDICARE, OTHER, SELFPAY ==
[2025-10-14] VITALS (10 sets, daily range): BP systolic 108–139; BP diastolic 64–82
--- NOTE | 2025-10-14 07:49 | ED.GENMED ---
History of Present Illness
<Jacinta Campos PA-C - Last Filed: 10/14/25 15:53>
General
Chief Complaint: Wound Check/Suture Removal
Source: patient and fpc
Exam Limitations: none
Time Seen by Provider: 10/14/25 07:39
History of Present Illness
History of Present Illness:
75yoM with a history of a sacral wound presenting via EMS from [facility] for evaluation of wound bleeding. Packing is changed 2x daily by fpc staff. He was complaining of buttock pain overnight and the nurse noticed bleeding. They
were unable to control the bleeding and EMS was activated. Per fpc staff, he has never had bleeding from the wound before. No recent debridement. He does not take any blood thinners.
Past History
<Jacinta Campos PA-C - Last Filed: 10/14/25 15:53>
Past History
ED Past Medical History: Asthma, HTN, Hypercholesterolemia and Other (Kidney stones)
ED Past Surgical History: Cholecystectomy and Orthopedic (4 hip replacements, right hand with pins)
Patient has exhibited threatening behavior?: No
PSI?: No
Social History
Tobacco: Former smoker
Alcohol: None
Personal:
Living: with family
Employment: Retired
Family History
Family History: Hypertension
Phy Exam
<Jacinta Campos PA-C - Last Filed: 10/14/25 15:53>
Physical Exam
Physical Exam:
Chronically ill appearing male, no acute distress
General Physical Exam
General Presentation: no apparent distress
General Skin: warm and dry
General Habitus: normal and elderly
General Mental: alert
ENT Exam
ENT Exam: normocephalic
Pulmonary Exam
Pulmonary Exam: no respiratory distress
Neurological Exam
Neurological Exam: alert
[place] Coma Scale
Eye Opening: Spontaneous
Verbal Response: Oriented
Motor Response: Obeys Commands
GCS Total Score: 15
Skin Exam
Skin Exam: warm/dry and other (Large deep sacral wound noted with packing in place that is saturated in blood. Packing and clots removed. Small area of active arterial bleeding noted deep in wound. No signs of infection.)
Psychiatric Exam
Psychiatric Exam: normal mood/affect
Course
<Jacinta Campos PA-C - Last Filed: 10/14/25 15:53>
Orders/Labs/Results
Orders:
Orders
10/14/25 07:58
Oxycodone/Acetaminophen [Percocet 5/325] 1 tablet PO NOW STA
10/14/25 08:27
Complete Blood Count/With Diff Urgent
Comprehensive Metabolic Panel Urgent
10/14/25 09:36
HYDROmorphone [Dilaudid] 0.5 mg IV NOW STA
10/14/25 13:34
HYDROmorphone [Dilaudid] 0.5 mg IV NOW STA
Abnormal Lab Results
10/14/25
08:27
WBC 11.9 H 10^3/uL
(4.8-10.8)
RBC 3.44 L 10^6/uL
(4.70-6.10)
Hgb 9.8 L g/dL
(13.0-18.0)
Hct 30.5 L %
(39.0-52.0)
MCHC 32.1 L g/dL
(33.0-37.0)
RDW 15.0 H %
(11.5-14.5)
Plt Count 416 H 10^3/uL
(130-400)
Abs Immat Gran (auto) 0.1 H 10^3/uL
(0-0.05)
Absolute Neuts (auto) 9.8 H 10^3/uL
(1.4-6.5)
Absolute Lymphs (auto) 0.9 L 10^3/uL
(1.2-3.4)
Absolute Monos (auto) 0.8 H 10^3/uL
(0.1-0.6)
Immature Gran % 1.2 H %
(0-0.5)
Neutrophils % 82.0 H %
(42.2-75.2)
Lymphocytes % 7.7 L %
(20.5-51.1)
Sodium 128 L mmol/L
(135-145)
Chloride 96 L mmol/L
(98-107)
Carbon Dioxide 32 H mmol/L
(22-30)
Glucose 124 H mg/dl
(70-99)
Total Protein 5.7 L g/dl
(6.3-8.2)
Albumin 2.6 L g/dl
(3.5-5.0)
10/14/25 08:27
10/14/25 08:27
Vital Signs
Initial and Last Documented VS:
Initial Vital Signs
BP
132/82
10/14/25 07:27
Last Documented Vital Signs
Temp Pulse Resp BP Pulse Ox
97.5 F 92 20 124/70 98
10/14/25 13:10 10/14/25 13:15 10/14/25 13:10 10/14/25 13:10 10/14/25 13:15
<Jerrell Velasquez MD - Last Filed: 10/14/25 10:18>
Orders/Labs/Results
Orders:
Orders
10/14/25 07:58
Oxycodone/Acetaminophen [Percocet 5/325] 1 tablet PO NOW STA
10/14/25 08:27
Complete Blood Count/With Diff Urgent
Comprehensive Metabolic Panel Urgent
10/14/25 09:36
HYDROmorphone [Dilaudid] 0.5 mg IV NOW STA
10/14/25 13:34
HYDROmorphone [Dilaudid] 0.5 mg IV NOW STA
Abnormal Lab Results
10/14/25
08:27
WBC 11.9 H 10^3/uL
(4.8-10.8)
RBC 3.44 L 10^6/uL
(4.70-6.10)
Hgb 9.8 L g/dL
(13.0-18.0)
Hct 30.5 L %
(39.0-52.0)
MCHC 32.1 L g/dL
(33.0-37.0)
RDW 15.0 H %
(11.5-14.5)
Plt Count 416 H 10^3/uL
(130-400)
Abs Immat Gran (auto) 0.1 H 10^3/uL
(0-0.05)
Absolute Neuts (auto) 9.8 H 10^3/uL
(1.4-6.5)
Absolute Lymphs (auto) 0.9 L 10^3/uL
(1.2-3.4)
Absolute Monos (auto) 0.8 H 10^3/uL
(0.1-0.6)
Immature Gran % 1.2 H %
(0-0.5)
Neutrophils % 82.0 H %
(42.2-75.2)
Lymphocytes % 7.7 L %
(20.5-51.1)
Sodium 128 L mmol/L
(135-145)
Chloride 96 L mmol/L
(98-107)
Carbon Dioxide 32 H mmol/L
(22-30)
Glucose 124 H mg/dl
(70-99)
Total Protein 5.7 L g/dl
(6.3-8.2)
Albumin 2.6 L g/dl
(3.5-5.0)
10/14/25 08:27
10/14/25 08:27
Vital Signs
Initial and Last Documented VS:
Initial Vital Signs
BP
132/82
10/14/25 07:27
Last Documented Vital Signs
Temp Pulse Resp BP Pulse Ox
97.5 F 92 20 124/70 98
10/14/25 13:10 10/14/25 13:15 10/14/25 13:10 10/14/25 13:10 10/14/25 13:15
<Jacinta Campos PA-C - Last Filed: 10/14/25 15:53>
MDM/Problems Addressed
Differential Diagnosis Includes:
75yoM here with wound bleeding. Hx of sacral wound that is packed BID at his fpc. Wound started bleeding overnight and staff was unable to control bleeding. VSS. Large deep sacral wound noted on exam. Packing in place is saturated in blood.
Packing and clots removed. Small area of arterial bleeding noted. We attempted to place figure of 8 suture but suture wound not hold due to friable tissue. General surgery was consulted. Dr. Lisa came to bedside and bleeding able to be controlled
with sutures and cautery. Labs obtained and hemoglobin 9.8 which is a drop in baseline although bleeding is now controlled and vitals are stable. He was observed for several hours in the ED with no further bleeding. Patient is stable for discharge
back to his nursing facility.
<Jacinta Campos PA-C - Last Filed: 10/14/25 15:53>
*Pulse Oximetry
SaO2: 99
Patient hypoxic: no
*Critical Care Note
Total Time (30-74mins, 75-104mins- exclusive of procedures): Not Applicable
ED Attending Note
<Jacinta Campos PA-C - Last Filed: 10/14/25 15:53>
-
Portions of this chart may have been created with voice recognition software.� Occasional wrong word or��sound alike� substitutions may have occurred due to the inherent limitations of voice recognition software.
<Jerrell Velasquez MD - Last Filed: 10/14/25 10:18>
ED Attending Note
Patient seen and examined by attending physician: Yes
I performed the substantive portion of visit, reviewed & personally made and approve the management plan that is documented in note by myself or SAMANTHA.: Yes
ED Attending Note:
Patient presents with bleeding from his sacral wound. It gets packed twice a day now. Also has been debrided recently.
Patient denies fever chills significant pain at the site or other complaints.
On exam patient is nontoxic. Chronically ill-appearing. He has a very large deep sacral wound however it does not appear sected. There is no unusual drainage. It is currently packed with significant bloody drainage.
On further examination there is another small arterial pumper.
Procedure: Sterilely injected 1% with epi. Suction. Attempted [id number]. However we could not get good bleeding control. Contacted surgery who evaluated the patient and was able to get control with suturing and cauterization.
Discharge Plan
Departure
Patient Disposition: Home (Routine Discharge)
Date of Disposition: 10/14/25
Time of Disposition: 11:25
Patient with high blood pressure during this ER visit?: No
Discharge Problem:
Bleeding from wound, Sacral wound
Instructions: Pressure sores
Prescriptions:
No Action
simvastatin 40 MG tablet
40 mg PO QPM
albuterol sulfate [Ventolin HFA] 1 PUFF HFA aerosol inhaler
2 puff inhalation R Q4HPRN PRN (Reason: asthma)
metoprolol succinate [Toprol XL] 25 mg Tablet Extended Release 24 Hr
12.5 mg PO DAILY
fluticasone furoate-vilanterol [Breo Ellipta] 200-25 mcg/dose Blister With Device
1 inh INHALATION R DAILY
Rx Instructions:
200/25
sennosides-docusate sodium [Senna Plus] 8.6-50 mg Tablet
1 tab PO DAILYPRN PRN (Reason: constipation) Qty: 30 0RF
magnesium hydroxide 400 mg/5 mL Suspension
30 ml PO HSPRN PRN (Reason: if no BM in 3 days)
doxycycline monohydrate 100 mg Capsule
100 mg PO BID
Rx Instructions:
FOR 7 DAYS UNTIL 10/18/25
melatonin 5 mg Tablet
5 mg PO HS
miconazole nitrate 2 % Powder
1 applic TOPICAL BID
Theragen Tablet
1 tab PO DAILY
tamsulosin [Flomax] 0.4 mg Capsule
0.4 mg PO DAILY
Santyl 250 unit/gram Ointment
1 applic TOPICAL DAILY
oxycodone 5 mg Tablet
5 mg PO Q6HPRN PRN (Reason: SEVERE PAIN)
Visbiome 112.5 billion cell Capsule
1 cap PO DAILY
polyethylene glycol 3350 [Miralax] 17 gram powder in packet
17 g PO DAILYPRN PRN (Reason: Constipation)
sucralfate 1 gram tablet
1 g PO ACHS
pantoprazole [Protonix] 40 mg tablet,delayed release (DR/EC)
40 mg PO DAILY
Referrals:
Jamarcus Ptaterson MD [Family Provider, Internal Medicine]
Activity Restrictions/Additional Instructions:
Bleeding was able to be controlled with absorbable sutures and cautery. Packing changes can be resumed tomorrow.
Please follow-up with the wound care nurse and family doctor. Return to the ER with any worsening symptoms or recurrent bleeding that is unable to be controlled with direct pressure.
Interventions
Interventions:
*Risk Screen - Suicide Last Done: 10/14/25 07:37
*General Assessment Last Done: 10/14/25 07:37
*Neglect/Abuse Screening Last Done: 10/14/25 07:37
*ED- Fall Risk Assessment Last Done: 10/14/25 07:37
*ED COVID-19 Vaccine History Last Done: 10/14/25 07:37
*ED Influenza Vaccine History Last Done: 10/14/25 07:37
*Nursing Disposition Last Done: 10/14/25 14:17
ED-Skin Assessment Last Done: 10/14/25 07:37
Discharge Date and Time
Discharge Date/Time: 10/14/25 14:31
Print Language: PASHTO
[2025-10-14] MEDS: PERCOCET 5/325 1 TABLET PO (08:15)
--- NOTE | 2025-10-14 08:44 | EDRN ---
Dr. Velasquez and Jacinta RODRIGUEZ are at the pts bedside assessing sacral wound and packing wound
[2025-10-14 08:50] LABS: Hematocrit 30.5 % (39.0-52.0); Hemoglobin 9.8 g/dL (13.0-18.0); Mean Corp Hgb Conc. 32.1 g/dL (33.0-37.0); Mean Corpuscular Volume 88.7 fL (80.0-94.0); Nucleated Red Blood Cells % 0 % (-); Platelet Count 416 10^3/uL (130-400); Red Cell Dist. Width 15.0 % (11.5-14.5)
[2025-10-14 09:13] LABS: ALT (SGPT) 19 U/L (0-50); AST (SGOT) 19 U/L (17-59); Albumin 2.6 g/dl (3.5-5.0); Alkaline Phosphatase 74 U/L (38-126); Blood Urea Nitrogen 18 mg/dl (9-20); Calcium 8.8 mg/dl (8.4-10.2); Carbon Dioxide 32 mmol/L (22-30); Chloride 96 mmol/L (98-107); Glucose 124 mg/dl (70-99); Potassium 4.0 mmol/L (3.5-5.1); Sodium 128 mmol/L (135-145); Total Protein 5.7 g/dl (6.3-8.2); eGFR > 60.00
--- NOTE | 2025-10-14 09:23 | EDRN ---
surgery and Dr. Velasquez currently at the pts bedside
[2025-10-14] MEDS: DILAUDID 0.5 MG IV ×2 (09:51→13:45)
--- NOTE | 2025-10-14 11:25 | EDRN ---
Jacinta RODRIGUEZ at the pts bedside performing 2 hour wound check per general surgery, no s/s of bleeding, Jacinta RODRIGUEZ packed wound
--- NOTE | 2025-10-14 13:18 | CON.GS ---
Addendum entered and electronically signed by Guerrero Lisa MD 10/14/25 17:05:
I saw and examined the patient independently.
The Derrick Boat Lever Operator's note was reviewed and I agree with the note, assessment and plan except where noted below.
Comment: This is a 75-year-old male who presents to the ED with a bleeding sacral wound. Bedside ligation of the vessel performed, see the note below.
Would repack/reevaluate the wound in 2 hours and if still no bleeding okay to send home/back to facility.
Patient can follow-up with me as an outpatient as needed, But has scheduled wound care already set up with Dr. Villa.
Bedside ligation of a bleeding vessel
A verbal team time-out was performed confirming the location/laterality of the procedure, consent and allergies reviewed.
Location: Sacral area
Dimensions: 6 x 6 cm
Local: 1% Lidocaine
Yarder Engineer: Jacinda Kennedy NP
The skin was cleaned with Betadine and anesthetized with lidocaine by the ED team. Through the opening of the sacral wound, the bleeding vessel could be identified. It was suture-ligated with a 3-0 Vicryl [id number]. Additional throws were
done to ensure hemostasis. There was also some light bleeding in the surrounding tissue which was cauterized with portable Bovie. The wound was irrigated with sterile saline. Hemostasis was confirmed. The skin was packed with kerlix and then
covered with a dry gauze. No specimens were sent to Pathology/Culture. The patient tolerated the procedure well, discharge instructions reviewed and all questions were answered.
Original Note:
Consultation
-
Date/Time Consultation Performed: 10/14/25914
Requesting Provider: Ron
Medical History
-
Chief Complaint: bleeding wound
History of Present Illness:
Mr Jean Baptiste is a 75 yo male presenting from [facility] with a history of sacral wound which has been debrided weekly as an outpatient with wound care with last debridement on 10/09 who presents with pulsatile bleeding noted at the base of the wound. His
wound is normally packed with BID dressing changes with bleeding noted early this am by staff prompting transfer to the ED. He is on no blood thinners. Surgery emergently consulted to assist with management in the ED.
Past Medical History
Past Medical History: Asthma, HTN, Hypercholesterolemia and Other (bph, Retroperitoneal and pelvic lipomatosis, sacral wound)
Past Surgical History: Cholecystectomy, Orthopedic (L THR with multiple revisions, right hand with orthopedic hardware placed), Urological (ureteroscopy for stones) and Other (varicose vein surgery)
Social History
Tobacco: Non-Smoker
Living: Snf
Family History
Family History: Reviewed & Not Pertinent
Allergies / Home Medications
Allergy/AdvReac Type Severity Reaction Status Date / Time
No Known Allergies Allergy Verified 09/16/25 16:36
�Medication �Instructions �Recorded �Confirmed �Type
albuterol sulfate 90 mcg/actuation 2 puff inhalation R Q4HPRN PRN 06/16/12 10/14/25 History
aerosol inhaler (Ventolin HFA) asthma
simvastatin 40 mg tablet 40 mg PO QPM High Cholesterol 06/16/12 10/14/25 History
fluticasone furoate 200 1 inh inhalation R DAILY 06/19/23 10/14/25 History
mcg-vilanterol 25 mcg/dose Lung/Breathing Issues
inhalation powder (Breo Ellipta)
metoprolol succinate 25 mg 12.5 mg PO DAILY Blood Pressure 06/19/23 10/14/25 History
tablet,extended release 24 hr
(Toprol XL)
sennosides 8.6 mg-docusate sodium 1 tab PO DAILYPRN PRN constipation 08/18/25 10/14/25 Rx
50 mg tablet (Senna Plus) #30 tabs
Lactobac no.2-Bifidobac no.1-S. 1 cap PO DAILY Supplement 10/14/25 10/14/25 History
thermo 112.5 billion cell capsule
(Visbiome)
collagenase clostridium histo. 250 1 applic topical DAILY RIGHT ELBOW 10/14/25 10/14/25 History
unit/gram topical ointment (Santyl)
doxycycline monohydrate 100 mg 100 mg PO BID Infection 10/14/25 10/14/25 History
capsule
magnesium hydroxide 400 mg/5 mL 30 ml PO HSPRN PRN if no BM in 3 10/14/25 10/14/25 History
oral suspension days
melatonin 5 mg tablet 5 mg PO HS Sleep 10/14/25 10/14/25 History
miconazole nitrate 2 % topical 1 applic topical BID skin lesions 10/14/25 10/14/25 History
powder
oxycodone 5 mg tablet 5 mg PO Q6HPRN PRN SEVERE PAIN 10/14/25 10/14/25 History
pantoprazole 40 mg tablet,delayed 40 mg PO DAILY Gastrointestinal 10/14/25 10/14/25 History
release (Protonix) Issue
polyethylene glycol 3350 17 gram 17 g PO DAILYPRN PRN Constipation 10/14/25 10/14/25 History
oral powder packet (Miralax)
sucralfate 1 gram tablet 1 g PO ACHS RUDOLPH 10/14/25 10/14/25 History
tamsulosin 0.4 mg capsule 0.4 mg PO DAILY Urinary Issue 10/14/25 10/14/25 History
therapeutic multivitamin 1 tab PO DAILY Supplement 10/14/25 10/14/25 History
Review of Systems
-
A 10 point review of systems was completed, and was negative except as per HPI.
Physical Exam
Vital Signs
Temp Pulse Resp BP Pulse Ox
97.5 F 91 20 124/70 97
10/14/25 13:10 10/14/25 13:10 10/14/25 13:10 10/14/25 13:10 10/14/25 13:10
10/13/25 10/14/25 10/15/25
06:59 06:59 06:59
Actual Weight 81.193 kg
Lab Results
10/14/25 08:27
10/14/25 08:27
WBC 11.9 10^3/uL (4.8-10.8) H 10/14/25 08:27
Hgb 9.8 g/dL (13.0-18.0) L 10/14/25 08:27
Hct 30.5 % (39.0-52.0) L 10/14/25 08:27
Plt Count 416 10^3/uL (130-400) H 10/14/25 08:27
Abs Immat Gran (auto) 0.1 10^3/uL (0-0.05) H 10/14/25 08:27
Neutrophils % 82.0 % (42.2-75.2) H 10/14/25 08:27
Physical Exam
General: No Apparent Distress
HEENT: Normocephalic
GI: Soft and Non Tender
Skin: Warm and Other (large sacral wound with clean, granulating base with pulsatile bleeder present)
Neuro: Awake, Alert and AO x 3
Psych: Calm
Data Reviewed
-
Old Records: Reviewed
Assessment / Plan
-
Mr Jean Baptiste is a 75 yo male presenting from [facility] with a history of sacral wound which has been debrided weekly as an outpatient with wound care with last debridement on 10/09 who presents with pulsatile bleeding noted at the base of the wound. His
wound is normally packed with BID dressing changes with bleeding noted early this am by staff prompting transfer to the ED. He is on no blood thinners. Surgery emergently consulted to assist with management in the ED.
Plan:
See separate procedure note, vicryl suture utilized to tie off the bleeder with electrocautery to wound edges
Wound packed s/p hemostasis of bleeding portion. Would recommend recheck in 2-3 hours to ensure bleeding does not recur prior to return to [facility]
Resume BID dressing changes starting tomorrow
--- NOTE | 2025-10-14 13:38 | EDRN ---
the pt is being discharged and this RN called [facility] at [phone] and gave verbal report to the receiving nurse
== END 2025-10-14 14:31 | disposition home or self-care (01) ==
LOC: EMR 07:24
PROVIDERS: Physician Assistant; EMERGENCY PHYSICIAN Emergency Medicine; FAMILY PHYSICIAN Internal Medicine
DX: R58 Hemorrhage, not elsewhere classified (principal); S31.000A Unspecified open wound of lower back and pelvis without penetration into retroperitoneum, initial encounter; X58.XXXA Exposure to other specified factors, initial encounter; J45.909 Unspecified asthma, uncomplicated; I10 Essential (primary) hypertension; E78.00 Pure hypercholesterolemia, unspecified; N40.0 Benign prostatic hyperplasia without lower urinary tract symptoms; Z82.49 Family history of ischemic heart disease and other diseases of the circulatory system; Z82.5 Family history of asthma and other chronic lower respiratory diseases; Z83.49 Family history of other endocrine, nutritional and metabolic diseases; Z87.442 Personal history of urinary calculi; Z87.891 Personal history of nicotine dependence; Z90.49 Acquired absence of other specified parts of digestive tract
CPT/HCPCS: 99283; 96374; 96376; 80053; 85025